=== PATIENT | male | born 1955 | race African-American/Black ===

== ENCOUNTER 2018-05-23 14:16 | Emergency (ER) | payer SELFPAY, OTHER ==
[2018-05-23] MEDS: IBUPROFEN 800 MG TABLET. PO (16:43)
== END 2018-05-23 16:44 | disposition home or self-care (01) ==
LOC: ER 16:44
DX: M25.551 Pain in right hip (principal); M25.552 Pain in left hip
CPT/HCPCS: 73521; 99284

== ENCOUNTER 2018-07-18 20:21 | Inpatient (IN) | payer OTHER ==
[~2018-07-18] VITALS: Ht 177.8 cm; Wt 73.0 kg
[2018-07-18 20:56] LABS: BASO # 0.1 x10^3/uL (0.0-0.2); BASO % 1 % (0-3); EOS # 0.2 x10^3/uL (0.0-0.7); EOS % 3 % (0-3); HEMATOCRIT 40.5 % (39.0-53.0); HEMOGLOBIN 14.3 g/dL (13.0-17.5); LYMPH # 1.8 x10^3/uL (1.0-4.8); LYMPH % 29 % (24-48); MEAN CORPUSCULAR HEMOGLOBIN 35 pg (25-35); MEAN CORPUSCULAR HGB CONC 35 g/dL (31-37); MEAN CORPUSCULAR VOLUME 98 fL (79-100); MONO # 0.7 x10^3/uL (0.0-1.1); MONO % 11 % (0-9); NEUT # 3.6 x10^3uL (1.8-7.7); NEUT % 57 % (31-73); PLATELET COUNT 161 x10^3/uL (140-400); RED BLOOD COUNT 4.13 x10^6/uL (4.30-5.70); RED CELL DISTRIBUTION WIDTH 14.7 % (11.5-14.5); WHITE BLOOD COUNT 6.4 x10^3/uL (4.0-11.0)
[2018-07-18 21:09] LABS: CALCIUM 9.2 mg/dL (8.5-10.1); CREATININE 0.7 mg/dL (0.7-1.3); GFR 137.8
[2018-07-18 21:16] LABS: TOTAL BILIRUBIN 0.4 mg/dL (0.2-1.0)
--- NOTE | 2018-07-18 21:33 | RAD ---
EXAM: CT Head without IV contrast CLINICAL HISTORY: syncope COMPARISON: 03/30/2016 TECHNIQUE: Routine CT of the head without contrast. Soft tissues and bone windows were reviewed. PQRS compliance statement - One or more of the following individualized dose reduction techniques were utilized for this study: 1. Automated exposure control 2. Adjustment of the mA and/or kV according to patient size 3. Use of iterative reconstruction technique FINDINGS: There is no evidence of hemorrhage, mass or extra-axial fluid collection. Daniel-white differentiation is maintained with no evidence of edema. There is no mass effect or shift of the intracranial structures. The ventricles, basilar cisterns and cortical sulci are normal in size and configuration for the patients stated age. The cerebellum and brainstem are unremarkable. The calvarium demonstrates no evidence of fracture or focal lesion. There is normal aeration of the visualized paranasal sinuses and mastoid air cells. The visualized portions of the orbits are normal. IMPRESSION: No evidence for acute intracranial process. Electronically signed by: Mauri Pope MD (07/18/2018 9:30 PM) [facility]
[2018-07-18 22:21] LABS: BILIRUBIN,URINE NEGATIVE (NEG); CLARITY,URINE CLEAR; COLOR,URINE YELLOW; NITRITE,URINE NEGATIVE (NEG); PROTEIN,URINE NEGATIVE (NEG-TRACE); UROBILINOGEN,URINE 0.2 mg/dL (0.2 mg/dL)
[2018-07-18 22:28] LABS: BACTERIA,URINE 0 /HPF (0-FEW); RBC,URINE 0 /HPF (0-2); WBC,URINE 0 /HPF (0-4)
[2018-07-18] MEDS ORDERED: ASPIRIN 325 MG TABLET PO ONE (22:45)
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
[2018-07-19] VITALS (10 sets, daily range): BP systolic 139–159; BP diastolic 80–102
[2018-07-19] MEDS ORDERED: LABETALOL 20 MG/4 ML DISP.SYRIN. IVP PRN (00:30)
[2018-07-19] MEDS ORDERED: amLODIPine BESYLATE 2.5 MG TABLET PO ONE (00:30)
[2018-07-19] MEDS ORDERED: MULTIVIT INFUSN,ADULT 4,VIT K 10 ML, THIAMINE 100 MG, FOLIC ACID 1 MG in IV NORMAL SALI... IV ONE (00:45)
[2018-07-19] MEDS: ENOXAPARIN 40 MG/0.4 ML SYRINGE. SQ SCH (09:23)
--- NOTE | 2018-07-19 09:55 | EKG ---
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
[2018-07-19] MEDS ORDERED: ONDANSETRON PF 4 MG/2 ML VIAL. IV PRN (10:30)
[2018-07-19] MEDS ORDERED: ACETAMINOPHEN 325 MG TABLET. PO PRN (10:30)
[2018-07-19] MEDS ORDERED: DOCUSATE SODIUM 100 MG CAPSULE. PO PRN (10:30)
[2018-07-19] MEDS ORDERED: MORPHINE SULFATE 2 MG/ML VIAL. IV PRN (10:30)
[2018-07-19 10:45] LABS: MAGNESIUM 1.8 mg/dL (1.8-2.4); PHOSPHORUS 3.7 mg/dL (2.6-4.7)
[2018-07-19 12:11] LABS: BARBITURATES NEG (NEG); BENZODIAZEPINES NEG (NEG); CANNABINOIDS NEG (NEG); COCAINE NEG (NEG); METHADONE NEG (NEG); OPIATES NEG (NEG); PHENCYCLIDINE NEG (NEG)
[2018-07-19] MEDS: ASPIRIN ENTERIC COATED 81 MG TABLET.DR. PO SCH (12:12)
[2018-07-19 12:14] LABS: AMPHETAMINE/METHAMPHETAMINE NEG (NEG)
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
--- NOTE | 2018-07-19 15:13 | PDOC2 ---
CARDIOLOGY CONSULT NOTE CHEIF COMPLAINT: Evaluate for syncope and elevated troponin HPI: 63-year-old alcoholic male presenting to the hospital in the setting of a syncopal event. He apparently choked on some food and subsequent to that was down for about 10 seconds. Initial evaluation the ER revealed nonspecific EKG changes with minimally elevated troponin. He did not have any chest pain. Previous his presentation he did not complain of any specific cardiac limitation such as chest pain, orthopnea, PND or lower extremity edema. No syncope or palpitations. Today reports that he is overall doing well. No acute issues. Troponin has peaked to 0.14. PMHX: No significant history. SOCHX: Alcohol and tobacco abuse is noted. FAMHX: Noncontributory CURRENT MEDS: Current Medications Medications (Trade) Dose Ordered Sig/Luis Eduardo Start Time Stop Time Status Last Admin Dose Admin Acetaminophen (Tylenol) 650 mg PRN Q6HRS PRN 07/19/18 10:30 Amlodipine Besylate (Norvasc) 2.5 mg 1X ONCE 07/19/18 00:30 07/19/18 00:31 DC 07/19/18 01:31 2.5 MG Aspirin (Jennifer Aspirin) 325 mg 1X ONCE 07/18/18 22:45 07/18/18 22:46 DC 07/18/18 23:30 325 MG Aspirin (Ecotrin) 81 mg [id number] 07/19/18 12:30 07/19/18 12:12 81 MG Docusate Sodium (Colace) 100 mg PRN DAILY PRN 07/19/18 10:30 Enoxaparin Sodium (Lovenox 40mg Syringe) 40 mg Q24H 07/19/18 09:00 07/19/18 09:23 40 MG Enoxaparin Sodium (Lovenox Per Pharmacy Prophylaxis Dosing) 1 each PRN DAILY PRN 07/19/18 00:30 Labetalol HCl (Normodyne Iv Push) 20 mg PRN Q2HR PRN 07/19/18 00:30 Lorazepam (Ativan) 4 mg PRN Q1HR PRN 07/19/18 00:30 Morphine Sulfate (Morphine Sulfate) 2 mg PRN Q2HR PRN 07/19/18 10:30 Multivitamins 10 ml/Thiamine HCl 100 mg/Folic Acid 1 mg/Sodium Chloride 1,011.2 ml @ 1,000.088 mls/hr 1X ONCE 07/19/18 00:45 07/19/18 01:45 DC 07/19/18 01:31 1,000.088 MLS/HR Ondansetron HCl (Zofran) 4 mg PRN Q6HRS PRN 07/19/18 10:30 Tramadol HCl (Ultram) 50 mg PRN Q6HRS PRN 07/19/18 10:30 ALLERGIES: Allergies Coded Allergies Type Severity Reaction Last Updated Verified No Known Drug Allergies 03/30/16 No ROS: Negative for 10 out of 14 systems reviewed also otherwise mentioned above in history of present illness PHYSICAL EXAM: Vital Signs: Vital Signs Date Time Temp Pulse Resp B/P (MAP) Pulse Ox O2 Delivery O2 Flow Rate FiO2 07/19/18 10:45 97.7 75 18 159/82 (107) 99 Room Air 97.7 I & O Intake and Output 07/19/18 07:00 # Voids 3 Physical Exam: GEN.: No apparent distress. Alert and oriented. HEENT: Head is normocephalic, atraumatic NECK: Supple. LUNGS: Clear to auscultation. HEART: RRR, S1, S2 present. Peripheral pulses intact ABDOMEN: Soft, nontender. Positive bowel sounds. EXTREMITIES: Without any cyanosis. NEUROLOGIC: Normal speech, normal tone PSYCHIATRIC: Normal affect, normal mood. SKIN: No ulcerations DIAGNOSTIC TESTING: EKG unremarkable. Cardiac enzymes minimally elevated. Mild hypertension noted. Lab Laboratory Tests Test 07/18/18 20:40 07/18/18 22:05 07/19/18 05:00 07/19/18 11:45 White Blood Count 6.4 x10^3/uL (4.0-11.0) Red Blood Count 4.13 x10^6/uL (4.30-5.70) L Hemoglobin 14.3 g/dL (13.0-17.5) Hematocrit 40.5 % (39.0-53.0) Mean Corpuscular Volume 98 fL (79-100) Mean Corpuscular Hemoglobin 35 pg (25-35) Mean Corpuscular Hemoglobin Concent 35 g/dL (31-37) Red Cell Distribution Width 14.7 % (11.5-14.5) H Platelet Count 161 x10^3/uL (140-400) Neutrophils (%) (Auto) 57 % (31-73) Lymphocytes (%) (Auto) 29 % (24-48) Monocytes (%) (Auto) 11 % (0-9) H Eosinophils (%) (Auto) 3 % (0-3) Basophils (%) (Auto) 1 % (0-3) Neutrophils # (Auto) 3.6 x10^3uL (1.8-7.7) Lymphocytes # (Auto) 1.8 x10^3/uL (1.0-4.8) Monocytes # (Auto) 0.7 x10^3/uL (0.0-1.1) Eosinophils # (Auto) 0.2 x10^3/uL (0.0-0.7) Basophils # (Auto) 0.1 x10^3/uL (0.0-0.2) Sodium Level 140 mmol/L (136-145) Potassium Level 4.0 mmol/L (3.5-5.1) Chloride Level 102 mmol/L (98-107) Carbon Dioxide Level 25 mmol/L (21-32) Anion Gap 13 (6-14) Blood Urea Nitrogen 4 mg/dL (8-26) L Creatinine 0.7 mg/dL (0.7-1.3) Estimated GFR (Cockcroft-Gault) 137.8 BUN/Creatinine Ratio 6 (6-20) Glucose Level 100 mg/dL (70-99) H Calcium Level 9.2 mg/dL (8.5-10.1) Total Bilirubin 0.4 mg/dL (0.2-1.0) Aspartate Amino Transf (AST/SGOT) 100 U/L (15-37) H Alkaline Phosphatase 58 U/L (46-116) Total Protein 8.0 g/dL (6.4-8.2) Albumin 4.0 g/dL (3.4-5.0) Albumin/Globulin Ratio 1.0 (1.0-1.7) Ethyl Alcohol Level 211 mg/dL (0-10) H Urine Collection Type Unknown Urine Color Yellow Urine Clarity Clear Urine pH 5.0 Urine Specific [place] 1.010 Urine Protein Negative mg/dL (NEG-TRACE) Urine Glucose (UA) Negative mg/dL (NEG) Urine Ketones (Stick) Negative mg/dL (NEG) Urine Blood Trace (NEG) Urine Nitrite Negative (NEG) Urine Bilirubin Negative (NEG) Urine Urobilinogen Dipstick 0.2 mg/dL (0.2 mg/dL) Urine Leukocyte Esterase Negative (NEG) Urine RBC 0 /HPF (0-2) Urine WBC 0 /HPF (0-4) Urine Bacteria 0 /HPF (0-FEW) Urine Mucus Slight /LPF Phosphorus Level 3.7 mg/dL (2.6-4.7) Thyroid Stimulating Hormone (TSH) 0.766 uIU/mL (0.358-3.74) Urine Opiates Screen Neg (NEG) Urine Methadone Screen Neg (NEG) Urine Barbiturates Neg (NEG) Urine Phencyclidine Screen Neg (NEG) Urine Amphetamine/Methamphetamine Neg (NEG) Urine Benzodiazepines Screen Neg (NEG) Urine Cocaine Screen Neg (NEG) Urine Cannabinoids Screen Neg (NEG) Urine Ethyl Alcohol Neg (NEG) ASSESSMENT: 1. Elevated troponin the setting of alcohol and tobacco abuse. 2. Syncope in setting of likely vasovagal event after vomiting. 3. Probable hypertension. PLAN: 1. In light of the patient's age, risk factors including tobacco abuse and probable hypertension along with elevated troponin it would be appropriate to rule out any significant ischemic heart disease and therefore we will plan for a myocardial perfusion study tomorrow. 2. Continue aspirin and discussed smoking and alcohol cessation with the patient. 3. Continue present meds, add statin. SHAKIR TANG MD Jul 19, 2018 15:13
--- NOTE | 2018-07-19 16:23 | RAD ---
Bilateral Duplex Carotid Ultrasound: History: Syncope. Dizziness. Technique: Grayscale, color Doppler, and spectral Doppler imaging was performed of the arteries of the neck. Findings: Peak systolic velocity in right common carotid artery is 97 cm/sec. Peak systolic velocity in the right internal carotid artery is 76 cm/sec. Maximum end-diastolic velocity in the right internal carotid artery is 26 cm/sec. Right ICA/CCA ratio is 0.78. Peak systolic velocity in the right external carotid artery is 90 cm/sec. Peak systolic velocity in left common carotid artery is 83 cm/sec. Peak systolic velocity in the left internal carotid artery is 90 cm/sec. Maximum end-diastolic velocity in the left internal carotid artery is 34 cm/sec. Left ICA/CCA ratio is 1.0. Peak systolic velocity in the left external carotid artery is 55 cm/sec. Both vertebral arteries demonstrate antegrade flow. Grayscale imaging demonstrates mild intimal thickening of the common carotid artery. Relatively mild calcified and noncalcified atherosclerotic plaquing can be seen involving both carotid bulbs. Impression: No hemodynamically significant internal carotid artery stenosis. Note: Stenosis calculations for carotid ultrasound studies are derived from validated velocity criteria which are known to correlate with the NASCET methodology. Electronically signed by: Jericho Goncalves MD (07/19/2018 4:19 PM) [facility] [place]
--- NOTE | 2018-07-19 16:54 | EKG ---
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
[2018-07-19] MEDS: ATORVASTATIN CALCIUM 40 MG TABLET. PO SCH (21:21)
[2018-07-20] VITALS (17 sets, daily range): BP systolic 117–147; BP diastolic 69–105
[2018-07-20 07:44] LABS: BASO % 0 % (0-3); EOS # 0.1 x10^3/uL (0.0-0.7); EOS % 3 % (0-3); HEMATOCRIT 40.4 % (39.0-53.0); HEMOGLOBIN 13.9 g/dL (13.0-17.5); LYMPH # 1.2 x10^3/uL (1.0-4.8); LYMPH % 23 % (24-48); MEAN CORPUSCULAR HEMOGLOBIN 34 pg (25-35); MEAN CORPUSCULAR HGB CONC 35 g/dL (31-37); MEAN CORPUSCULAR VOLUME 98 fL (79-100); MONO # 0.6 x10^3/uL (0.0-1.1); MONO % 11 % (0-9); NEUT # 3.3 x10^3uL (1.8-7.7); NEUT % 63 % (31-73); PLATELET COUNT 134 x10^3/uL (140-400); RED BLOOD COUNT 4.13 x10^6/uL (4.30-5.70); RED CELL DISTRIBUTION WIDTH 13.9 % (11.5-14.5); WHITE BLOOD COUNT 5.2 x10^3/uL (4.0-11.0)
[2018-07-20] MEDS: ASPIRIN ENTERIC COATED 81 MG TABLET.DR. PO SCH (08:00)
[2018-07-20 08:09] LABS: CALCIUM 8.6 mg/dL (8.5-10.1); CREATININE 0.6 mg/dL (0.7-1.3); GFR 164.7; POTASSIUM 3.5 mmol/L (3.5-5.1)
[2018-07-20] MEDS: ENOXAPARIN 40 MG/0.4 ML SYRINGE. SQ SCH (09:00)
[2018-07-20 10:07] LABS: PROTHROMBIN TIME PATIENT 13.9 SEC (11.7-14.0)
--- NOTE | 2018-07-20 10:58 | EKG ---
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
[2018-07-20] MEDS ORDERED: ceFAZolin 2GM PREMIX 2 GM/50 ML BAG IV ONE (12:00)
[2018-07-20] MEDS ORDERED: BACITRACIN 50,000 UNIT in IV NORMAL SALINE 250ML 250 ML IRR ONE (12:15)
--- NOTE | 2018-07-20 12:55 | CARD ---
MR#: [id number] Date of Study: 07/20/2018 Ordering Physician: NICANOR HOPSON, Referring Physician: Latha RODRIGEZ: RAY Muñoz APPROVED REPORT EXAM: Two-dimensional and M-mode echocardiogram with Doppler and color Doppler. Other Information Quality : AverageHR: 63bpm INDICATION Syncope 2D DIMENSIONS Left Atrium(2D)3.6 (1.6-4.0cm)IVSd0.8 (0.7-1.1cm) Aortic Root(2D)3.2 (2.0-3.7cm)LVDd6.6 (3.9-5.9cm) LVOT Diameter2.7 (1.8-2.4cm)PWd1.0 (0.7-1.1cm) LVDs5.9 (2.5-4.0cm)FS (%) 11.9 % SV56.9 mlLVEF(%)25.0 (>50%) Aortic Valve AoV Peak Isai.117.9cm/sAoV VTI18.9cm AO Peak GR.5.6mmHgLVOT Peak Isai.46.0cm/s LVOT VTI 7.89cmAO Mean GR.3mmHg CHUY (VMAX)1.67fn2XES (VTI)2.33cm2 Mitral Valve MV E Tylklceb26.1cm/sMV E Peak Gr.21mmHg MV DECEL [id number] A Kimseuyn32.1cm/s MV NCL79ozR/A Ratio0.7 MVA (PHT)2.26cm2 Pulmonary Valve PV Peak Hqbmtvwy57.2cm/sPV Peak Grad.1mmHg Pulmonary Vein S1 Mhvixudl38.7cm/sD2 Mjucugvo08.4cm/s LEFT VENTRICLE The Left Ventricle is mildly dilated. There is normal left ventricular wall thickness. The ejection f raction is severely impaired. The Ejection Fraction is estimated at 25%. There is severe global hypok inesis of the left ventricle. Transmitral Doppler flow pattern is abnormal. RIGHT VENTRICLE The right ventricle is normal size. The right ventricular systolic function is normal. ATRIA The left atrium size is normal. The right atrium size is normal. The interatrial septum is intact wit h no evidence for an atrial septal defect or patent foramen ovale as noted on 2-D or Doppler imaging. AORTIC VALVE The aortic valve is mildly thickened but opens well. Doppler and Color Flow revealed no significant a ortic regurgitation. There is no significant aortic valvular stenosis. There is no aortic valvular ve getation. MITRAL VALVE The mitral valve is mildly thickened but opens well. There is no evidence of mitral valve prolapse. T here is no mitral valve stenosis. Doppler and Color-flow revealed mild mitral regurgitation. TRICUSPID VALVE The tricuspid valve is normal in structure and function. Doppler and Color Flow revealed mild tricusp id regurgitation. There is no tricuspid valve prolapse or vegetation. There is no tricuspid valve nia nosis. PULMONIC VALVE The pulmonic valve is not well visualized. Doppler and Color Flow revealed no pulmonic valvular regur gitation. There is no pulmonic valvular stenosis. GREAT VESSELS The aortic root is normal in size. The IVC is normal in size and collapses >50% with inspiration. PERICARDIAL EFFUSION There is no pleural effusion. There is no evidence of significant pericardial effusion. Critical Notification Critical Value: No <Conclusion> The Left Ventricle is mildly dilated. The ejection fraction is severely impaired. The Ejection Fraction is estimated at 25%. There is severe global hypokinesis of the left ventricle. There is no significant aortic valvular stenosis. Doppler and Color Flow revealed no significant aortic regurgitation. Doppler and Color-flow revealed mild mitral regurgitation. Doppler and Color Flow revealed mild tricuspid regurgitation. Signed by : Florain Leigh MD Electronically Approved : 07/20/2018 12:55:00
[2018-07-20] MEDS ORDERED: fentaNYL PF VIAL 250 MCG/5 ML VIAL ONE (14:00)
[2018-07-20] MEDS ORDERED: LIDOCAINE 2%/EPI 1:100,000 20 ML VIAL. ONE (14:00)
[2018-07-20] MEDS ORDERED: MIDAZOLAM HCL/PF 5 MG/5 ML VIAL. ONE (14:00)
[2018-07-20] MEDS ORDERED: LIDOCAINE 2%/EPI 1:100,000 20 ML VIAL. IJ ONE (14:30)
[2018-07-20] MEDS ORDERED: fentaNYL PF VIAL 250 MCG/5 ML VIAL IV ONE (14:30)
[2018-07-20] MEDS ORDERED: MIDAZOLAM HCL/PF 5 MG/5 ML VIAL. IV ONE (14:30)
--- NOTE | 2018-07-20 16:12 | RAD ---
Portable chest, 07/20/2018: HISTORY: Post pacemaker insertion A left-sided transvenous pacemaker is in place with one lead extending into the right ventricle while the tip of the other lead is projected over the superior aspect of the right atrium. The heart size and pulmonary vascularity are normal. No pulmonary infiltrate is seen. There is no evidence of pleural fluid or pneumothorax. IMPRESSION: No acute cardiopulmonary abnormality is detected. Electronically signed by: Adrian Blackwell MD (07/20/2018 4:09 PM) [facility]
--- NOTE | 2018-07-20 16:49 | CARD ---
MR#: [id number] Date of Study: 07/20/2018 Ordering Physician: MARIANNA MONAHAN, Referring Physician: Ila OSBORNE Tech: RT Junaid (R) APPROVED REPORT Technologist: RT Junaid (R) Nurse: Rosio Joshi R.N. Procedure(s) performed: Moderate Sedation time: 84 minutes Dual chamber pacemaker. HISTORY The patient is a 63 year-old male with a history of : hypertension, dyslipidemia, alcohol abuse. INDICATION The indication(s) include : 11 second pause. . PROCEDURE NARRATIVE 30 mL of 2% lidocaine was infiltrated into the skin and subcutaneous tissues for local anesthesia. A n incision was made over the left infraclavicular fossa and using blunt dissection and cautery a pock et was created. Venous access was obtained in the left subclavian vein 6 Anguillan sheaths were inserte d. Subsequently, a Biotronik bipolar active fixation right ventricular lead model Solia S 53, SN [id number] was advanced under fluoroscopic guidance and the tip was positioned in the right ventricular apex. Following this, a Biotronik bipolar active fixation right atrial lead model Solia S 45, SN [id number] was placed in the right atrial appendage under fluoroscopy guidance. The leads were secured into callie ce and were attached to a Biotronik dual-chamber permanent pacemaker generator model Eluna 8 DR-T Pro MRI, SN [id number]. This was placed in the pocket that was subsequently closed in 3 layers. Hemostas is was secured. At the end of procedure, the right ventricular lead showed sensing amplitude of 10.2 mV, impedance of 698 ohms and a threshold of 0.4volts at 0.4ms. The right atrial lead showed a sensing amplitude of 2.5 millivolts, impedance of 514 ohms and a threshold of 0.7 volts at 0.4ms. Patient tolerated the pr ocedure well. There were no immediate complications. Final Settings: DDD/CLS 60-130 Conclusion 1. Successful insertion of a Biotronik Dual chamber pacemaker for SSS (11 second pause) and Syncope. Signed by : Lasha Andrews, Electronically Approved : 07/20/2018 16:48:46
--- NOTE | 2018-07-20 17:18 | PDOC ---
Provider Note Provider Note Patient underwent pacemaker today for SSS with 11 second pause and presentation for syncope. Patient situation discussed with the patient and the family. He has severe LV dysfunction likely in the setting of significant alcohol abuse. He's not appropriate medical therapy for heart failure. Given his minimally elevated troponin we will plan for a cardiac catheterization tomorrow to rule out any significant obstructive disease. Subsequent to this if he has no significant disease we will start him on a heart failure regimen and in 3-6 months could reconsider defibrillator implantation/upgrade as indicated if his LV function does not improve. Discussed with him dietary restrictions and alcohol cessation extensively. Risks and benefits of plan discussed with the patient and family and they're in agreement. SHAKIR TANG MD Jul 20, 2018 17:18
[2018-07-20] MEDS: traMADol 50 MG TABLET PO PRN (18:21)
[2018-07-20] MEDS: ATORVASTATIN CALCIUM 40 MG TABLET. PO SCH (22:59)
[2018-07-21] MEDS: traMADol 50 MG TABLET PO PRN ×3 (00:32→20:50)
[2018-07-21 03:30] VITALS: BP 152/97
[2018-07-21] MEDS ORDERED: ceFAZolin SODIUM 1 GM in IV DEXTROSE 5% 50 ML IV ONE (06:00)
[2018-07-21 07:00] VITALS: BP 150/106
[2018-07-21] MEDS: ENOXAPARIN 40 MG/0.4 ML SYRINGE. SQ SCH (07:11)
--- NOTE | 2018-07-21 08:27 | RAD ---
Portable chest, 07/21/2018: HISTORY: Check pacemaker placement Comparison is made to yesterday's study. A left-sided transvenous pacemaker remains in place with 2 leads extending into the right heart. The left ventricle is mildly prominent. The pulmonary vascularity is normal. No pulmonary infiltrate is seen. There is no evidence of pleural fluid. IMPRESSION: No acute cardiopulmonary abnormality is detected. Electronically signed by: Adrian Blackwell MD (07/21/2018 8:24 AM) [facility]
[2018-07-21] MEDS: ASPIRIN ENTERIC COATED 81 MG TABLET.DR. PO SCH (09:50)
[2018-07-21 11:31] VITALS: BP 122/77
[2018-07-21 15:00] VITALS: BP 140/90
--- NOTE | 2018-07-21 17:40 | PDOC ---
PROGRESS NOTES Subjective Same left chest wall pain from PPM placement, no anginal pain but not exerting. Wearing left shoulder harness. 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, postponed to tomorrow due to prior patient's complications causing prolonged procedure Objective Afebrile General: NAD Heart: RRR Lungs: diminished Abd: soft, non tender Ext: no edema Vital Signs Vital Signs Date Time Temp Pulse Resp B/P (MAP) Pulse Ox O2 Delivery O2 Flow Rate FiO2 07/21/18 15:00 98.3 75 20 140/90 (107) 99 Room Air 98.3 07/21/18 10:56 2.0 I & O Intake and Output 07/21/18 07:00 Intake Total 500 ml Balance 500 ml Intake Oral 500 ml # Voids 5 Assessment and Plan syncope - 11 sec pause, has SSS and is post op day #1 for PPM abnormal troponin with chest pain - awaiting left heart cath 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
[2018-07-21 19:44] VITALS: BP 153/94
[2018-07-21] MEDS: ATORVASTATIN CALCIUM 40 MG TABLET. PO SCH (20:44)
[2018-07-21 22:12] VITALS: BP 127/87
[2018-07-22 03:48] VITALS: BP 146/90
[2018-07-22] MEDS: traMADol 50 MG TABLET PO PRN (06:48)
[2018-07-22 07:00] VITALS: BP 121/56
[2018-07-22] MEDS ORDERED: LIDOCAINE 1% PF 30 ML VIAL. ONE (08:28)
[2018-07-22] MEDS: ENOXAPARIN 40 MG/0.4 ML SYRINGE. SQ SCH (09:00)
[2018-07-22] MEDS: ASPIRIN ENTERIC COATED 81 MG TABLET.DR. PO SCH (09:27)
[2018-07-22] MEDS ORDERED: PHENOL ORAL SPRAY 177ML BOTTLE. PO PRN (10:30)
[2018-07-22] MEDS ORDERED: BENZOCAINE/MENTHOL LOZENGE. PO PRN (10:30)
[2018-07-22] MEDS ORDERED: MIDAZOLAM HCL/PF 2 MG/2 ML VIAL. ONE (11:19)
[2018-07-22] MEDS ORDERED: fentaNYL PF VIAL 100 MCG/2 ML VIAL ONE (11:19)
[2018-07-22] MEDS ORDERED: MIDAZOLAM HCL/PF 2 MG/2 ML VIAL. IV ONE (11:30)
[2018-07-22] MEDS ORDERED: fentaNYL PF VIAL 100 MCG/2 ML VIAL IV ONE (11:30)
[2018-07-22] MEDS ORDERED: IOHEXOL 300 MG/ML 100ML VIAL. IART ONE (11:30)
[2018-07-22] MEDS ORDERED: LIDOCAINE 1% PF 30 ML VIAL. INJ ONE (11:30)
--- NOTE | 2018-07-22 11:37 | PDOC ---
MODERATE SEDATION ASSESSMENT RISKS/ALTERNATIVES Risks/Alternatives Risks and alternatives of this type of sedation and procedure discussed with: RISK/ALTERNATIVES: Patient H & P ON CHART H & P H & P on chart and reviewed for co-morbid conditions and appropriate labs. H&P ON CHART: Yes STATUS PREG STATUS ASSESSED: N/A MEDS/ALLERGIES REVIEWED Meds/Allergies Reviewed Medications and Allergies including time and route of recently administered narcotics and sedatives. MEDS/ALLERGIES REVIEWED: Yes ASA RATING ASA RATING: II AIRWAY ASSESSMENT Airway Assessment Airway patency, oral function limitations, presence of caps, crowns, dentures, partials, and ability to extend neck assessed. AIRWAY ASSESSMENT: Yes MALLAMPATI SCORE MALLAMPATI SCORE: II PRE-SEDATION ASSESSMENT PRE-SEDATION ASSESSMENT: Yes DHIRAJ WYATT MD Jul 22, 2018 11:37
[2018-07-22] MEDS ORDERED: CONTRAST GIVEN. MC PRN (11:45)
[2018-07-22] MEDS ORDERED: BIVALIRUDIN 250 MG VIAL. IV ONE ×2 (11:55→12:15)
[2018-07-22] MEDS ORDERED: IOHEXOL 300 MG/ML 100ML VIAL. ONE (11:55)
[2018-07-22 12:16] VITALS: BP 141/104
[2018-07-22] MEDS ORDERED: IV NORMAL SALINE 1000ML BAG 1,000 ML IV SCH (12:19)
[2018-07-22] MEDS ORDERED: NITROGLYCERIN SUBLINGUAL 0.4 MG BOTTLE OF 25. SL PRN (12:30)
[2018-07-22] MEDS ORDERED: 0.9 % SODIUM CHLORIDE 10 ML DISP.SYRIN. IV PRN (12:30)
--- NOTE | 2018-07-22 14:42 | CARD ---
MR#: [id number] Date of Study: 07/22/2018 Ordering Physician: SHAKIR TANG, Referring Physician: Latha RODRIGEZ: RT Junaid (R) APPROVED REPORT Procedures Selective coronary angiogram. The patient is a 63-year-old male with a severe global cardiomyopathy. Catheterization was recommende d to evaluate for possible significant underlying coronary artery disease. Risks and benefits were di scussed. The patient agreed to proceed. After informed consent was obtained the patient was brought to the heart catheterization lab. The are a of the right femoral artery was prepared the usual manner with Betadine, sterile draping and local anesthetic. An 18-gauge needle was used to enter the right femoral artery, a wire placed and a 6 Fren ch sheath placed over the wire. A 6 Turkish JL4 diagnostic catheter was advanced to the ascending aort a. It was used to engage the left coronary system and sequential injections in various views were obt ained. A 6 Turkish Taj diagnostic right catheter was then advanced to the ascending aorta. It was used to engage the right coronary artery and an injection was performed. Following this a 3.5 extra support Left guide was advanced to ascending aorta and used to engage the left coronary system. Furt her injections in various views were obtained. This catheter was then removed after review of Images. Injection of the sheath showed normal placement. The sheath was removed and sealed with an Angio-Sea l product. The patient was then moved to the holding area. Findings. Hemodynamics. Ao. 118/84. Coronaries. Left main. The left main was a normal vessel. It had no lesions. Left anterior descending. The LAD was a moderate size vessel with normal distribution. It had a proxi mal 20% lesion and a mid 30% lesion. There was also a 25% lesion of the first diagonal branch. Left circumflex. The left circumflex is a dominant vessel. It a 40% obtuse marginal 2 lesion. Distall y the left circumflex was a small vessel with a lesion in the proximal portion of the small distal ve ssel. Following review of the images it was decided to continue on medical treatment for the small v essel disease. Right coronary artery. The right coronary was a nondominant vessel with a mid 35% lesion. <Conclusion> Moderate disease in the left anterior descending and right coronary arteries. Distal small vessel disease in the left circumflex vessel. Continue medical treatment. Signed by : Florian Leigh MD Electronically Approved : 07/22/2018 14:41:06
[2018-07-22 15:00] VITALS: BP 134/92
[2018-07-22] MEDS ORDERED: ASPI81TA50 PO (16:19)
[2018-07-22] MEDS ORDERED: SIMV10TA3 PO (16:19)
[2018-07-22] MEDS ORDERED: METO25TA4 PO (16:19)
--- NOTE | 2018-07-22 16:33 | PDOC3 ---
Discharge Summary [facility] Date of Admission: Jul 19, 2018 Discharge Date: Jul 22, 2018 Admitting Diagnosis syncope Final Diagnosis syncope from sick sinus syndrome, alcoholic cardiomyopathy, alcoholism, moderate coronary disease with chest pain CONSULTS Juliana Procedures placement of permanent pacemaker, left heart catheterization Brief Hospital Course Mr. Jc is a 63 old who presented with syncope and chest pain and found to have an 11 second sinus pause for which he received a permanent pacemaker. He was found to have a cardiomyopathy on echo with an EF of 20% presumed to be from alcoholism as on left heart cath he only had moderate ASCAD. He had a mildly elevated troponin. He will be managed medically for that with low dose beta ann, low dose aspirin and low dose statin. He is encouraged to not drink. Disposition home CONDITION AT DISCHARGE: Improved, Stable Diet cardiac, avoid alcohol Follow Up 1-2 weeks Patient Instructions new Rxs written for simvastatin 10 mg #90, 3 ref, ASA 81 mg #90, 3 ref, metoprolol tartrate 25 mg 1 bid #180, 3 ref and he will continue Vit D and eye drops he has at home. He will wear sling left arm x 2 weeks, he will avoid any exertional activity the next 2 weeks Tiarra OSBORNE MD Jul 22, 2018 16:33
== END 2018-07-22 17:50 | disposition home or self-care (01) | DRG 242 ==
LOC: ER 20:21 → 5 SOUTH 22:47 → 2 SOUTH 07-20 14:27
PROVIDERS: ADMIT Family Medicine; ATTEND Family Medicine
PROC: 0JH606Z Insertion of Pacemaker, Dual Chamber into Chest Subcutaneous Tissue and Fascia, Open Approach (ICD-10-PCS; principal; 2018-07-20)
PROC: 02H63JZ Insertion of Pacemaker Lead into Right Atrium, Percutaneous Approach (ICD-10-PCS; 2018-07-20)
PROC: 02HK3JZ Insertion of Pacemaker Lead into Right Ventricle, Percutaneous Approach (ICD-10-PCS; 2018-07-20)
PROC: 4A023N7 Measurement of Cardiac Sampling and Pressure, Left Heart, Percutaneous Approach (ICD-10-PCS; 2018-07-20)
PROC: B2111ZZ Fluoroscopy of Multiple Coronary Arteries using Low Osmolar Contrast (ICD-10-PCS; 2018-07-20)
DX: I49.5 Sick sinus syndrome (principal); I50.43 Acute on chronic combined systolic (congestive) and diastolic (congestive) heart failure; J44.9 Chronic obstructive pulmonary disease, unspecified; I11.0 Hypertensive heart disease with heart failure; I25.10 Atherosclerotic heart disease of native coronary artery without angina pectoris; E78.00 Pure hypercholesterolemia, unspecified; E78.5 Hyperlipidemia, unspecified; F10.20 Alcohol dependence, uncomplicated; I42.6 Alcoholic cardiomyopathy; E86.0 Dehydration; H40.9 Unspecified glaucoma; F17.210 Nicotine dependence, cigarettes, uncomplicated; Z79.82 Long term (current) use of aspirin; Z79.899 Other long term (current) drug therapy; Z71.6 Tobacco abuse counseling; Z71.41 Alcohol abuse counseling and surveillance of alcoholic
CPT/HCPCS: 33208; 36415; 70450; 71045; 71046; 80048; 80053; 80061; 80307; 81001; 83735; 84100; 84443; 84484; 85025; 85610; 85730; 93005; 93306; 93454; 93458; 93880; 99152; 99153; C1713; C1725; C1769; C1771; C1773; C1785; C1887; C1892; C1898; G0269; G0480; J0583; J0690; J1644; J1650; J2250; J3010; J3490; J7030; J7050; Q9967; 99285-25; G0479

== ENCOUNTER 2020-05-11 18:51 | Inpatient (IN) | payer MEDICARE, MEDICAID ==
[~2020-05-11] VITALS: Ht 177.8 cm; Wt 73.9 kg
[~2020-05-11 18:51] MED LIST: ASPI81TA50 PO; METO25TA4 PO; SIMV10TA15 PO
[2020-05-11 19:15] LABS: BASO % 1 % (0-3); EOS % 1 % (0-3); HEMATOCRIT 41.3 % (39.0-53.0); HEMOGLOBIN 14.1 g/dL (13.0-17.5); LYMPH # 1.8 x10^3/uL (1.0-4.8); LYMPH % 20 % (24-48); MEAN CORPUSCULAR HEMOGLOBIN 35 pg (25-35); MEAN CORPUSCULAR HGB CONC 34 g/dL (31-37); MEAN CORPUSCULAR VOLUME 102 fL (79-100); MONO # 0.4 x10^3/uL (0.0-1.1); MONO % 5 % (0-9); NEUT # 6.7 x10^3/uL (1.8-7.7); NEUT % 74 % (31-73); PLATELET COUNT 174 x10^3/uL (140-400); RED BLOOD COUNT 4.04 x10^6/uL (4.30-5.70); RED CELL DISTRIBUTION WIDTH 14.8 % (11.5-14.5)
[2020-05-11 19:24] LABS: PROTHROMBIN TIME PATIENT 13.4 SEC (11.7-14.0)
--- NOTE | 2020-05-11 19:49 | PHYS DOC ---
Past Medical History Past Medical History: Hypertension Past Surgical History: Pacemaker, Other Additional Past Surgical Histo: SHOULDER Smoking Status: Current Every Day Smoker Alcohol Use: Heavy Drug Use: None General Adult EDM: Chief Complaint: CHEST PAIN HPI: HPI: 65-year-old male past medical history with pacemaker secondary to tachyarrhythmia, hypertension and hyperlipidemia presents to the ED with complaints of chest pain that lasted for approximately 2 hours described as an "elephant sitting on my chest" with associated palpitations, lightheadedness, sore throat and shortness of breath, while watching tv. Normally follows at the [facility]. Denies any cocaine abuse. Mom from a heart attack in her 60s. ROS: Denies associated headache, blurry vision, lightheadedness, dizziness, syncope, hemoptysis, leg swelling, cough, sore throat, abdominal pain. Review of Systems: Review of Systems: Constitutional: Denies fever or chills. [] Eyes: Denies change in visual acuity. [] HENT: Denies nasal congestion or sore throat. [] Respiratory: Denies cough or shortness of breath. [] Cardiovascular: Denies chest pain or edema. [] GI: Denies abdominal pain, nausea, vomiting, bloody stools or diarrhea. [] : Denies dysuria. [] Musculoskeletal: Denies back pain or joint pain. [] Integument: Denies rash. [] Neurologic: Denies headache, focal weakness or sensory changes. [] Endocrine: Denies polyuria or polydipsia. [] Lymphatic: Denies swollen glands. [] Psychiatric: Denies depression or anxiety. [] Heart Score: HEART Score for Chest Pain: HEART Score for Chest Pain Response (Comments) Value History Moderately Suspicious 1 ECG Nonspecific Repolarizatio 1 Age > 65 2 Risk Factors >3 Risk Factors or Hx CAD 2 Troponin >1-<3x Normal Limit 1 Total 7 Risk Factors: Risk Factors: DM, Current or recent (<one month) smoker, HTN, HLP, family history of CAD, obesity. Risk Scores: Score 0 - 3: 2.5% MACE over next 6 weeks - Discharge Home Score 4 - 6: 20.3% MACE over next 6 weeks - Admit for Clinical Observation Score 7 - 10: 72.7% MACE over next 6 weeks - Early Invasive Strategies Allergies: Allergies: Allergies Coded Allergies Type Severity Reaction Last Updated Verified No Known Drug Allergies 03/30/16 No Physical Exam: PE: Constitutional: Well developed, well nourished, no acute distress, non-toxic appearance. [] HENT: Normocephalic, atraumatic, bilateral external ears normal, oropharynx moist, no oral exudates, nose normal. [] Eyes: PERRLA, EOMI, conjunctiva normal, no discharge. [] Neck: Normal range of motion, no tenderness, supple, no stridor. [] Cardiovascular:Heart rate regular rhythm, no murmur [] Lungs & Thorax: Bilateral breath sounds clear to auscultation [] Abdomen: Bowel sounds normal, soft, no tenderness, no masses, no pulsatile masses. [] Skin: Warm, dry, no erythema, no rash. [] Back: No tenderness, no CVA tenderness. [] Extremities: No tenderness, no cyanosis, no clubbing, ROM intact, no edema. [] Neurologic: Alert and oriented X 3, normal motor function, normal sensory function, no focal deficits noted. [] Psychologic: Affect normal, judgement normal, mood normal. [] Current Patient Data: Labs: Laboratory Tests Test 05/11/20 19:09 White Blood Count 9.0 x10^3/uL (4.0-11.0) Red Blood Count 4.04 x10^6/uL (4.30-5.70) L Hemoglobin 14.1 g/dL (13.0-17.5) Hematocrit 41.3 % (39.0-53.0) Mean Corpuscular Volume 102 fL (79-100) H Mean Corpuscular Hemoglobin 35 pg (25-35) Mean Corpuscular Hemoglobin Concent 34 g/dL (31-37) Red Cell Distribution Width 14.8 % (11.5-14.5) H Platelet Count 174 x10^3/uL (140-400) Neutrophils (%) (Auto) 74 % (31-73) H Lymphocytes (%) (Auto) 20 % (24-48) L Monocytes (%) (Auto) 5 % (0-9) Eosinophils (%) (Auto) 1 % (0-3) Basophils (%) (Auto) 1 % (0-3) Neutrophils # (Auto) 6.7 x10^3/uL (1.8-7.7) Lymphocytes # (Auto) 1.8 x10^3/uL (1.0-4.8) Monocytes # (Auto) 0.4 x10^3/uL (0.0-1.1) Eosinophils # (Auto) 0.0 x10^3/uL (0.0-0.7) Basophils # (Auto) 0.0 x10^3/uL (0.0-0.2) Prothrombin Time 13.4 SEC (11.7-14.0) Prothrombin Time INR 1.1 (0.8-1.1) Activated Partial Thromboplast Time 22 SEC (24-38) L Laboratory Tests 05/11/20 19:09 Vital Signs: Vital Signs Date Time Temp Pulse Resp B/P (MAP) Pulse Ox O2 Delivery O2 Flow Rate FiO2 05/11/20 18:56 98.3 107 18 127/71 (89) 98 Room Air 98.3 EKG: EKG: Sinus tachycardia at 101 bpm, no axis deviation, QRS 136, QTc 496, T wave inversion V1 and V3, no ST elevations or ST depressions, 1 PVC Q waves in inferior leads Radiology/Procedures: Radiology/Procedures: IMAGING REPORT Signed PATIENT: DMITRY SMALLS ACCOUNT: [id number] : 1955 LOCATION: ER AGE: 65 SEX: M EXAM STATUS: REG ER ORD. PHYSICIAN: OUMAR RATLIFF DO REASON: weakness PROCEDURE: PORTABLE CHEST 1V Exam: Chest one INDICATION: Weakness TECHNIQUE: Frontal view of the chest Comparisons: 07/21/2018 FINDINGS: Pacer with leads terminating the right atrium and ventricle. The cardiomediastinal silhouette and pulmonary vessels are within normal limits. The lung and pleural spaces are clear. IMPRESSION: No acute cardiopulmonary process. Electronically signed by: Taryn Neves MD (05/11/2020 8:15 PM) [id number] DICTATED and SIGNED BY: TARYN NEVES MD DATE: 05/11/202014 IMAGING REPORT Signed PATIENT: DMITRY SMALLS ACCOUNT: [id number] : 1955 LOCATION: ER AGE: 65 SEX: M EXAM STATUS: REG ER ORD. PHYSICIAN: OUMAR RATLIFF DO REASON: SOA, CHEST PAIN, ELEVATED D DIMER PROCEDURE: CT ANGIOGRAPHY CHEST CT angiography chest with contrast PQRS statement: CT scans at this facility use dose reduction including either automated exposure control, iterative reconstructions, and /or weight based radiation dosing via mA and kV modification when appropriate to reduce radiation dose to as low as reasonably achievable. TECHNIQUE: CT imaging of the chest with 3-D MIP reconstructions of the pulmonary arteries with 100 mL Omnipaque 350 intravenous contrast. HISTORY: Shortness of breath, chest pain, elevated d-dimer. FINDINGS: Marked hypodensity liver likely advanced steatosis. 1 cm left renal cyst density 0 units. Coronary calcified plaque. Heart size normal. Aorta and esophagus are unremarkable. No adenopathy in the chest. Cardiac pacemaker. No pulmonary artery emboli. Respiratory motion results in some misregistration of the basilar left lower lobe pulmonary arterial branches without a true embolus evident at these regions. There is diffuse bronchial wall thickening with luminal narrowing typical of bronchitis. Right apical 3 mm solid nodule image 22. No pulmonary opacities. No pleural effusions. Bones are unremarkable. IMPRESSION: 1. No pulmonary artery emboli. 2. Bronchial wall thickening narrowing the lumen of the bronchi consistent with bronchitis. 3. Hypodensity of the liver likely steatosis. 4. 3 mm right apical upper lobe pulmonary solid nodule. Per Fleischner guidelines if the patient has risk factors for malignancy optional CT follow-up in 12 months would be advised, otherwise no follow-up is necessary. Electronically signed by: Niki Le MD (05/11/2020 9:16 PM) [facility] DICTATED and SIGNED BY: NIKI LE MD DATE: 05/11/202115 Impression: Concern for high risk chest pain. Patient asymptomatic in the ED. Will admit for cardiac evaluation and further plan. Patient stable at time of admission. Course & Med Decision Making: Course & Med Decision Making Pertinent Labs and Imaging studies reviewed. (See chart for details) [] Dragon Disclaimer: Dragon Disclaimer: This electronic medical record was generated, in whole or in part, using a voice recognition dictation system. Departure Departure Impression: Primary Impression: Chest pain Additional Impressions: Elevated troponin Transaminitis Disposition: ADMITTED INPATIENT Admitting Physician: CHELSEA (Dr. Natarajan) Condition: STABLE Referrals: Tiarra OSBORNE MD (PCP) Justicifation of Admission Dx: Justifications for Admission: Justification of Admission Dx: Yes Angina: Symp at Rest OUMAR RATLIFF DO May 11, 2020 19:49
[2020-05-11 20:00] LABS: CALCIUM 8.4 mg/dL (8.5-10.1); CREATININE 0.9 mg/dL (0.7-1.3); GFR 102.5
[2020-05-11 20:06] LABS: ALBUMIN 3.8 g/dL (3.4-5.0); DIRECT BILIRUBIN 0.3 mg/dL (0.0-0.2); TOTAL BILIRUBIN 0.7 mg/dL (0.2-1.0); TOTAL PROTEIN 7.2 g/dL (6.4-8.2)
--- NOTE | 2020-05-11 20:18 | RAD ---
Exam: Chest one INDICATION: Weakness TECHNIQUE: Frontal view of the chest Comparisons: 07/21/2018 FINDINGS: Pacer with leads terminating the right atrium and ventricle. The cardiomediastinal silhouette and pulmonary vessels are within normal limits. The lung and pleural spaces are clear. IMPRESSION: No acute cardiopulmonary process. Electronically signed by: Taryn Joshi MD (05/11/2020 8:15 PM) [id number]
[2020-05-11] MEDS ORDERED: IOHEXOL 350 MG/ML 100 ML VIAL. ONE (20:38)
[2020-05-11] MEDS ORDERED: IOHEXOL 350 MG/ML 100 ML VIAL. IV ONE (21:00)
--- NOTE | 2020-05-11 21:19 | RAD ---
CT angiography chest with contrast PQRS statement: CT scans at this facility use dose reduction including either automated exposure control, iterative reconstructions, and /or weight based radiation dosing via mA and kV modification when appropriate to reduce radiation dose to as low as reasonably achievable. TECHNIQUE: CT imaging of the chest with 3-D MIP reconstructions of the pulmonary arteries with 100 mL Omnipaque 350 intravenous contrast. HISTORY: Shortness of breath, chest pain, elevated d-dimer. FINDINGS: Marked hypodensity liver likely advanced steatosis. 1 cm left renal cyst density 0 units. Coronary calcified plaque. Heart size normal. Aorta and esophagus are unremarkable. No adenopathy in the chest. Cardiac pacemaker. No pulmonary artery emboli. Respiratory motion results in some misregistration of the basilar left lower lobe pulmonary arterial branches without a true embolus evident at these regions. There is diffuse bronchial wall thickening with luminal narrowing typical of bronchitis. Right apical 3 mm solid nodule image 22. No pulmonary opacities. No pleural effusions. Bones are unremarkable. IMPRESSION: 1. No pulmonary artery emboli. 2. Bronchial wall thickening narrowing the lumen of the bronchi consistent with bronchitis. 3. Hypodensity of the liver likely steatosis. 4. 3 mm right apical upper lobe pulmonary solid nodule. Per Fleischner guidelines if the patient has risk factors for malignancy optional CT follow-up in 12 months would be advised, otherwise no follow-up is necessary. Electronically signed by: Arvind Le MD (05/11/2020 9:16 PM) [facility]
[2020-05-11 23:13] LABS: BILIRUBIN,URINE NEGATIVE (NEG); CLARITY,URINE CLEAR; COLOR,URINE YELLOW; NITRITE,URINE NEGATIVE (NEG); PROTEIN,URINE NEGATIVE (NEG-TRACE); UROBILINOGEN,URINE 0.2 mg/dL (0.2 mg/dL)
[2020-05-11 23:19] LABS: BACTERIA,URINE 0 /HPF (0-FEW); HYALINE CASTS, URINE FEW /HPF; RBC,URINE 0 /HPF (0-2); WBC,URINE 0 /HPF (0-4)
[2020-05-12] VITALS (7 sets, daily range): BP systolic 12–165; BP diastolic 73–88
[2020-05-12] MEDS ORDERED: ONDANSETRON PF 4 MG/2 ML VIAL. IV PRN (00:15)
[2020-05-12] MEDS ORDERED: MORPHINE SULFATE 2 MG/ML VIAL. IV PRN (00:15)
--- NOTE | 2020-05-12 02:00 | NUR ---
PT ADMITTED FOR CHEST ELEVATED TROPONIN ELEVATED E-DIMER A/OX4, PT AMBULATED TO BED 1PA,GAIT UNSTEADY, PT VERBALIZED LEGALLY BLIND. PT AMBULATE TO BATHROOM 1PA. PT ORIENTED TO UNIT, STAFF, VERBALIZED UNDERSTANDING OF POC. CALL LIGHT PLACE IN REACH. WILL CONT TO MONITOR PT STATUS AND SAFETY. PMRN
--- NOTE | 2020-05-12 02:50 | NUR ---
Consult call to dr Sadler for chest pain, elevated troponin ,elevated d-dimer, order given for 325mg aspirin, will cont to monitor status and safety. pmrn
[2020-05-12] MEDS ORDERED: ASPIRIN 325 MG TABLET PO ONE (03:00)
[2020-05-12] MEDS ORDERED: METOPROLOL TART IMMED RELEASE 25 MG TABLET. PO SCH (09:30)
[2020-05-12] MEDS ORDERED: SIMVASTATIN 10 MG TABLET PO SCH (09:30)
--- NOTE | 2020-05-12 09:42 | PDOC1 ---
History and Physical Date of Admission Date of Admission DATE: 05/12/20 TIME: 09:42 History of Present Illness History of Present Illness MR. Moore is a 65-year-old male admit with chestpain. He has a past medical history with pacemaker secondary to tachyarrhythmia, hypertension and hyperlipidemia He had marked new chest pain that lasted for approximately 2 hours described as an "serious pressure" with associated palpitations, lightheadedness, sore throat and shortness of breath, while watching tv. Normally follows at the [facility]. Denies any cocaine abuse. Mom from a heart attack in her 60s. Past Surgical History Past Surgical History: No pertinent history Social History ALCOHOL: none Drugs: None Current Problem List Problem List Problems Medical Problems: (1) Transaminitis Status: Acute Current Medications Current Medications Current Medications Iohexol (Omnipaque 350 Mg/ml) 100 ml 1X ONCE IV Last administered on 05/11/20at 21:07; Start 05/11/20 at 21:00; Stop 05/11/20 at 21:01; Status DC Iohexol (Omnipaque 350 Mg/ml) 100 ml STK-MED ONCE .ROUTE ; Start 05/11/20 at 20:38; Stop 05/11/20 at 20:39; Status DC Ondansetron HCl (Zofran) 4 mg PRN Q8HRS PRN IV NAUSEA/VOMITING 1ST CHOICE; Start 05/12/20 at 00:15; Stop 05/13/20 at 00:14 Morphine Sulfate (Morphine Sulfate) 2 mg PRN Q2HR PRN IV SEVERE PAIN 7-10; Start 05/12/20 at 00:15; Stop 05/13/20 at 00:14 Aspirin (Jennifer Aspirin) 325 mg 1X ONCE PO Last administered on 05/12/20at 03:14; Start 05/12/20 at 03:00; Stop 05/12/20 at 03:01; Status DC Aspirin (Ecotrin) 81 mg DAILY PO ; Start 05/12/20 at 09:30 Metoprolol Tartrate (Lopressor) 25 mg BID PO ; Start 05/12/20 at 09:30 Simvastatin (Zocor) 10 mg QHS PO ; Start 05/12/20 at 09:30 Active Scripts Active Simvastatin 10 Mg Tablet 1 Tab PO DAILY Metoprolol Tartrate 25 Mg Tablet 1 Tab PO BID Aspir-Low (Aspirin) 81 Mg Tablet. 1 Tab PO DAILY Allergies Allergies: Coded Allergies: No Known Drug Allergies (Unverified , 03/30/16) ROS General: No: Chills, Night Sweats, Fatigue, Malaise, Appetite, Other PSYCHOLOGICAL ROS: No: Anxiety, Behavioral Disorder, Concentration difficultie, Decreased libido, Depression, Disorientation, Hallucinations, Hostility, Irritablity, Memory difficulties, Mood Swings, Obsessive thoughts, Physical abuse, Sexual abuse, Sleep disturbances, Suicidal ideation, Other Eyes: No Blurry vision, No Decreased vision, No Double vision, No Dry eyes, No Excessive tearing, No Eye Pain, No Itchy Eyes, No Loss of vision, No Photophobia, No Scotomata, No Uses contacts, No Uses glasses, No Other HEENT: No: Heacaches, Visual Changes, Hearing change, Nasal congestion, Nasal discharge, Oral lesions, Sinus pain, Sore Throat, Epistaxis, Sneezing, Snoring, Tinnitus, Vertigo, Vocal changes, Other Respiratory: No: Cough, Hemoptysis, Orthopnea, Pleuritic Pain, Shortness of breath, SOB with excertion, Sputum Changes, Stridor, Tachypnea, Wheezing, Other Cardiovascular: yes Chest Pain Genitourinary: No Dysuria, No Frequency, No Incontinence, No Hematuria, No Retention, No Discharge, No Urgency, No Pain, No Flank Pain, No Other, No , No , No , No , No , No , No Musculoskeletal: Yes Joint Stiffness; No Gait Disturbance, No Joint Pain, No Joint Swelling, No Muscle Pain, No Muscular Weakness, No Pain In:, No Swelling In:, No Other Neurological: No Behavorial Changes, No Bowel/Bladder ControlChng, No Confusion, No Dizziness, No Gait Disturbance, No Headaches, No Impaired Coord/balance, No Memory Loss, No Numbness/Tingling, No Seizures, No Speech Problems, No Tremors, No Visual Changes, No Weakness, No Other Skin: Yes Dry Skin; No Eczema, No Hair Changes, No Lumps, No Mole Changes, No Mottling, No Nail Changes, No Pruritus, No Rash, No Skin Lesion Changes, No Other, No Acne Physical Exam General: Alert, Oriented X3, No acute distress HEENT: Atraumatic, PERRLA Lungs: Clear to auscultation Heart: S1S2 Extremities: No edema Skin: No significant lesion Neuro: Normal speech, Normal tone, Sensation intact Psych/Mental Status: Mental status NL, Mood NL Vitals Vitals Vital Signs Date Time Temp Pulse Resp B/P (MAP) Pulse Ox O2 Delivery O2 Flow Rate FiO2 05/12/20 07:00 98.7 80 16 148/86 (106) 99 Nasal Cannula 2.0 98.7 Labs Labs Laboratory Tests Test 05/11/20 19:09 05/11/20 19:45 05/11/20 23:07 05/11/20 23:45 White Blood Count 9.0 x10^3/uL (4.0-11.0) Red Blood Count 4.04 x10^6/uL (4.30-5.70) Hemoglobin 14.1 g/dL (13.0-17.5) Hematocrit 41.3 % (39.0-53.0) Mean Corpuscular Volume 102 fL (79-100) Mean Corpuscular Hemoglobin 35 pg (25-35) Mean Corpuscular Hemoglobin Concent 34 g/dL (31-37) Red Cell Distribution Width 14.8 % (11.5-14.5) Platelet Count 174 x10^3/uL (140-400) Neutrophils (%) (Auto) 74 % (31-73) Lymphocytes (%) (Auto) 20 % (24-48) Monocytes (%) (Auto) 5 % (0-9) Eosinophils (%) (Auto) 1 % (0-3) Basophils (%) (Auto) 1 % (0-3) Neutrophils # (Auto) 6.7 x10^3/uL (1.8-7.7) Lymphocytes # (Auto) 1.8 x10^3/uL (1.0-4.8) Monocytes # (Auto) 0.4 x10^3/uL (0.0-1.1) Eosinophils # (Auto) 0.0 x10^3/uL (0.0-0.7) Basophils # (Auto) 0.0 x10^3/uL (0.0-0.2) Prothrombin Time 13.4 SEC (11.7-14.0) Prothromb Time International Ratio 1.1 (0.8-1.1) Activated Partial Thromboplast Time 22 SEC (24-38) D-Dimer (Marcy) 2.24 ug/mlFEU (0.00-0.50) Sodium Level 139 mmol/L (136-145) Potassium Level 4.0 mmol/L (3.5-5.1) Chloride Level 100 mmol/L (98-107) Carbon Dioxide Level 17 mmol/L (21-32) Anion Gap 22 (6-14) Blood Urea Nitrogen 10 mg/dL (8-26) Creatinine 0.9 mg/dL (0.7-1.3) Estimated GFR (Cockcroft-Gault) 102.5 Glucose Level 79 mg/dL (70-99) Calcium Level 8.4 mg/dL (8.5-10.1) Magnesium Level 2.0 mg/dL (1.8-2.4) Total Bilirubin 0.7 mg/dL (0.2-1.0) Direct Bilirubin 0.3 mg/dL (0.0-0.2) Aspartate Amino Transf (AST/SGOT) 86 U/L (15-37) Alanine Aminotransferase (ALT/SGPT) 81 U/L (16-63) Alkaline Phosphatase 51 U/L (46-116) Creatine Kinase 109 U/L (39-308) Troponin I Quantitative 0.040 ng/mL (0.000-0.055) 0.057 ng/mL (0.000-0.055) TD-Btm-T-Type Natriuretic Peptide 156 pg/mL (0-124) Total Protein 7.2 g/dL (6.4-8.2) Albumin 3.8 g/dL (3.4-5.0) Lipase 96 U/L (73-393) Urine Collection Type Unknown Urine Color Yellow Urine Clarity Clear Urine pH 5.0 (<5.0-8.0) Urine Specific [place] >=1.030 (1.000-1.030) Urine Protein Negative mg/dL (NEG-TRACE) Urine Glucose (UA) Negative mg/dL (NEG) Urine Ketones (Stick) >=80 mg/dL (NEG) Urine Blood Negative (NEG) Urine Nitrite Negative (NEG) Urine Bilirubin Negative (NEG) Urine Urobilinogen Dipstick 0.2 mg/dL (0.2 mg/dL) Urine Leukocyte Esterase Negative (NEG) Urine RBC 0 /HPF (0-2) Urine WBC 0 /HPF (0-4) Urine Bacteria 0 /HPF (0-FEW) Urine Hyaline Casts Few /HPF Urine Mucus Slight /LPF Laboratory Tests Test 05/11/20 19:09 05/11/20 19:45 05/11/20 23:07 05/11/20 23:45 White Blood Count 9.0 x10^3/uL (4.0-11.0) Red Blood Count 4.04 x10^6/uL (4.30-5.70) Hemoglobin 14.1 g/dL (13.0-17.5) Hematocrit 41.3 % (39.0-53.0) Mean Corpuscular Volume 102 fL (79-100) Mean Corpuscular Hemoglobin 35 pg (25-35) Mean Corpuscular Hemoglobin Concent 34 g/dL (31-37) Red Cell Distribution Width 14.8 % (11.5-14.5) Platelet Count 174 x10^3/uL (140-400) Neutrophils (%) (Auto) 74 % (31-73) Lymphocytes (%) (Auto) 20 % (24-48) Monocytes (%) (Auto) 5 % (0-9) Eosinophils (%) (Auto) 1 % (0-3) Basophils (%) (Auto) 1 % (0-3) Neutrophils # (Auto) 6.7 x10^3/uL (1.8-7.7) Lymphocytes # (Auto) 1.8 x10^3/uL (1.0-4.8) Monocytes # (Auto) 0.4 x10^3/uL (0.0-1.1) Eosinophils # (Auto) 0.0 x10^3/uL (0.0-0.7) Basophils # (Auto) 0.0 x10^3/uL (0.0-0.2) Prothrombin Time 13.4 SEC (11.7-14.0) Prothromb Time International Ratio 1.1 (0.8-1.1) Activated Partial Thromboplast Time 22 SEC (24-38) D-Dimer (Marcy) 2.24 ug/mlFEU (0.00-0.50) Sodium Level 139 mmol/L (136-145) Potassium Level 4.0 mmol/L (3.5-5.1) Chloride Level 100 mmol/L (98-107) Carbon Dioxide Level 17 mmol/L (21-32) Anion Gap 22 (6-14) Blood Urea Nitrogen 10 mg/dL (8-26) Creatinine 0.9 mg/dL (0.7-1.3) Estimated GFR (Cockcroft-Gault) 102.5 Glucose Level 79 mg/dL (70-99) Calcium Level 8.4 mg/dL (8.5-10.1) Magnesium Level 2.0 mg/dL (1.8-2.4) Total Bilirubin 0.7 mg/dL (0.2-1.0) Direct Bilirubin 0.3 mg/dL (0.0-0.2) Aspartate Amino Transf (AST/SGOT) 86 U/L (15-37) Alanine Aminotransferase (ALT/SGPT) 81 U/L (16-63) Alkaline Phosphatase 51 U/L (46-116) Creatine Kinase 109 U/L (39-308) Troponin I Quantitative 0.040 ng/mL (0.000-0.055) 0.057 ng/mL (0.000-0.055) ZU-Wts-N-Type Natriuretic Peptide 156 pg/mL (0-124) Total Protein 7.2 g/dL (6.4-8.2) Albumin 3.8 g/dL (3.4-5.0) Lipase 96 U/L (73-393) Urine Collection Type Unknown Urine Color Yellow Urine Clarity Clear Urine pH 5.0 (<5.0-8.0) Urine Specific [place] >=1.030 (1.000-1.030) Urine Protein Negative mg/dL (NEG-TRACE) Urine Glucose (UA) Negative mg/dL (NEG) Urine Ketones (Stick) >=80 mg/dL (NEG) Urine Blood Negative (NEG) Urine Nitrite Negative (NEG) Urine Bilirubin Negative (NEG) Urine Urobilinogen Dipstick 0.2 mg/dL (0.2 mg/dL) Urine Leukocyte Esterase Negative (NEG) Urine RBC 0 /HPF (0-2) Urine WBC 0 /HPF (0-4) Urine Bacteria 0 /HPF (0-FEW) Urine Hyaline Casts Few /HPF Urine Mucus Slight /LPF VTE Prophylaxis Ordered VTE Prophylaxis Devices: Yes VTE Pharmacological Prophylaxi: Yes Assessment/Plan Assessment/Plan chest pain, unstable angina, heparin gtt, cardiology consult f/u enzymes Justicifation of Admission Dx: Justifications for Admission: Justification of Admission Dx: Yes Angina: Symp at Rest BRYAN JACOBS MD May 12, 2020 09:42
[2020-05-12] MEDS ORDERED: AZITHRMYCN 500MG IVPB FOR OMNI 250 ML IV ONE (12:00)
[2020-05-12] MEDS ORDERED: AZITHROMYCIN 500 MG in IV NORMAL SALINE 250ML 250 ML IV ONE (12:30)
[2020-05-12] MEDS: ASPIRIN ENTERIC COATED 81 MG TABLET.DR. PO SCH (13:15)
[2020-05-12] MEDS: cefTRIAXone IV Push 1 GM VIAL. IVP SCH (13:16)
--- NOTE | 2020-05-12 13:53 | PDOC2 ---
CONSULT Date of Consult Date of Consult DATE: 05/12/20 TIME: 13:39 Reason for Consult Reason for Consult: Chest pain Referring Physician Referring Physician: Dr. Castañeda Identification/Chief Complaint Chief Complaint Chest pain Source Source: Chart review, Patient History of Present Illness Reason for Visit: 65-year-old male with history of nonischemic cardiomyopathy, sick sinus syndrome s/p permanent pacemaker implantation usually followed at [facility] presented complaining of retrosternal chest pain that he described as ' elephant sitting on chest' associated with palpitations, lightheadedness and mild shortness of breath while watching television. He denied any orthopnea or syncope. His chest pain resolved after he got the ED and has not recurred. Past Medical History Past Medical History Nonischemic cardiomyopathy with EF 25% in 2018 Sick sinus syndrome s/p permanent pacemaker implantation in 07/2018 Nonobstructive coronary disease on cardiac catheterization 07/2018 Hypertension Hyperlipidemia Past Surgical History Past Surgical History Shoulder surgery Past Surgical History: No pertinent history Family History Family History Hypertension and coronary artery disease Social History 1 pack per day ALCOHOL: heavy Drugs: None Current Problem List Problem List Problems Medical Problems: (1) Transaminitis Status: Acute Current Medications Current Medications Current Medications Iohexol (Omnipaque 350 Mg/ml) 100 ml 1X ONCE IV Last administered on 05/11/20at 21:07; Start 05/11/20 at 21:00; Stop 05/11/20 at 21:01; Status DC Iohexol (Omnipaque 350 Mg/ml) 100 ml STK-MED ONCE .ROUTE ; Start 05/11/20 at 20:38; Stop 05/11/20 at 20:39; Status DC Ondansetron HCl (Zofran) 4 mg PRN Q8HRS PRN IV NAUSEA/VOMITING 1ST CHOICE; Start 05/12/20 at 00:15; Stop 05/13/20 at 00:14 Morphine Sulfate (Morphine Sulfate) 2 mg PRN Q2HR PRN IV SEVERE PAIN 7-10; Start 05/12/20 at 00:15; Stop 05/13/20 at 00:14 Aspirin (Jennifer Aspirin) 325 mg 1X ONCE PO Last administered on 05/12/20at 03:14; Start 05/12/20 at 03:00; Stop 05/12/20 at 03:01; Status DC Aspirin (Ecotrin) 81 mg DAILY PO Last administered on 05/12/20at 13:15; Start 05/12/20 at 09:30 Metoprolol Tartrate (Lopressor) 25 mg BID PO Last administered on 05/12/20at 13:16; Start 05/12/20 at 09:30 Simvastatin (Zocor) 10 mg QHS PO Last administered on 05/12/20at 13:14; Start 05/12/20 at 09:30 Ceftriaxone Sodium (Rocephin) 1 gm Q24H IVP Last administered on 05/12/20at 13:16; Start 05/12/20 at 12:00 Azithromycin 250 ml @ 250 mls/hr 1X ONCE IV ; Start 05/12/20 at 12:00; Stop 05/12/20 at 12:59; Status Cancel Azithromycin 500 mg/Sodium Chloride 250 ml @ 250 mls/hr 1X ONCE IV Last administered on 05/12/20at 13:14; Start 05/12/20 at 12:30; Stop 05/12/20 at 13:29; Status DC Active Scripts Active Simvastatin 10 Mg Tablet 1 Tab PO DAILY Metoprolol Tartrate 25 Mg Tablet 1 Tab PO BID Aspir-Low (Aspirin) 81 Mg Tablet. 1 Tab PO DAILY Allergies Allergies: Coded Allergies: No Known Drug Allergies (Unverified , 03/30/16) ROS PSYCHOLOGICAL ROS: No: Hallucinations Eyes: No Loss of vision HEENT: No: Epistaxis Respiratory: YES: Shortness of breath; No: Hemoptysis Cardiovascular: yes Chest Pain, yes Palpitations Gastrointestinal: No Vomiting, No Diarrhea Genitourinary: No Hematuria Neurological: No Seizures Skin: No Rash Physical Exam General: Alert, Oriented X3 HEENT: Atraumatic Lungs: Clear to auscultation Heart: Regular rate Abdomen: Soft Extremities: No edema Neuro: Normal speech Psych/Mental Status: Mood NL Vitals VITALS Vital Signs Date Time Temp Pulse Resp B/P (MAP) Pulse Ox O2 Delivery O2 Flow Rate FiO2 05/12/20 13:16 92 126/70 05/12/20 11:00 98.4 18 97 Room Air 98.4 05/12/20 07:00 2.0 Labs Labs Laboratory Tests Test 05/11/20 19:09 05/11/20 19:45 05/11/20 23:07 05/11/20 23:45 White Blood Count 9.0 x10^3/uL (4.0-11.0) Red Blood Count 4.04 x10^6/uL (4.30-5.70) Hemoglobin 14.1 g/dL (13.0-17.5) Hematocrit 41.3 % (39.0-53.0) Mean Corpuscular Volume 102 fL (79-100) Mean Corpuscular Hemoglobin 35 pg (25-35) Mean Corpuscular Hemoglobin Concent 34 g/dL (31-37) Red Cell Distribution Width 14.8 % (11.5-14.5) Platelet Count 174 x10^3/uL (140-400) Neutrophils (%) (Auto) 74 % (31-73) Lymphocytes (%) (Auto) 20 % (24-48) Monocytes (%) (Auto) 5 % (0-9) Eosinophils (%) (Auto) 1 % (0-3) Basophils (%) (Auto) 1 % (0-3) Neutrophils # (Auto) 6.7 x10^3/uL (1.8-7.7) Lymphocytes # (Auto) 1.8 x10^3/uL (1.0-4.8) Monocytes # (Auto) 0.4 x10^3/uL (0.0-1.1) Eosinophils # (Auto) 0.0 x10^3/uL (0.0-0.7) Basophils # (Auto) 0.0 x10^3/uL (0.0-0.2) Prothrombin Time 13.4 SEC (11.7-14.0) Prothromb Time International Ratio 1.1 (0.8-1.1) Activated Partial Thromboplast Time 22 SEC (24-38) D-Dimer (Marcy) 2.24 ug/mlFEU (0.00-0.50) Sodium Level 139 mmol/L (136-145) Potassium Level 4.0 mmol/L (3.5-5.1) Chloride Level 100 mmol/L (98-107) Carbon Dioxide Level 17 mmol/L (21-32) Anion Gap 22 (6-14) Blood Urea Nitrogen 10 mg/dL (8-26) Creatinine 0.9 mg/dL (0.7-1.3) Estimated GFR (Cockcroft-Gault) 102.5 Glucose Level 79 mg/dL (70-99) Calcium Level 8.4 mg/dL (8.5-10.1) Magnesium Level 2.0 mg/dL (1.8-2.4) Total Bilirubin 0.7 mg/dL (0.2-1.0) Direct Bilirubin 0.3 mg/dL (0.0-0.2) Aspartate Amino Transf (AST/SGOT) 86 U/L (15-37) Alanine Aminotransferase (ALT/SGPT) 81 U/L (16-63) Alkaline Phosphatase 51 U/L (46-116) Creatine Kinase 109 U/L (39-308) Troponin I Quantitative 0.040 ng/mL (0.000-0.055) 0.057 ng/mL (0.000-0.055) ZA-Rvc-N-Type Natriuretic Peptide 156 pg/mL (0-124) Total Protein 7.2 g/dL (6.4-8.2) Albumin 3.8 g/dL (3.4-5.0) Lipase 96 U/L (73-393) Urine Collection Type Unknown Urine Color Yellow Urine Clarity Clear Urine pH 5.0 (<5.0-8.0) Urine Specific [place] >=1.030 (1.000-1.030) Urine Protein Negative mg/dL (NEG-TRACE) Urine Glucose (UA) Negative mg/dL (NEG) Urine Ketones (Stick) >=80 mg/dL (NEG) Urine Blood Negative (NEG) Urine Nitrite Negative (NEG) Urine Bilirubin Negative (NEG) Urine Urobilinogen Dipstick 0.2 mg/dL (0.2 mg/dL) Urine Leukocyte Esterase Negative (NEG) Urine RBC 0 /HPF (0-2) Urine WBC 0 /HPF (0-4) Urine Bacteria 0 /HPF (0-FEW) Urine Hyaline Casts Few /HPF Urine Mucus Slight /LPF Test 05/12/20 09:10 Troponin I Quantitative 0.089 ng/mL (0.000-0.055) Laboratory Tests Test 05/11/20 19:09 05/11/20 19:45 05/11/20 23:07 05/11/20 23:45 White Blood Count 9.0 x10^3/uL (4.0-11.0) Red Blood Count 4.04 x10^6/uL (4.30-5.70) Hemoglobin 14.1 g/dL (13.0-17.5) Hematocrit 41.3 % (39.0-53.0) Mean Corpuscular Volume 102 fL (79-100) Mean Corpuscular Hemoglobin 35 pg (25-35) Mean Corpuscular Hemoglobin Concent 34 g/dL (31-37) Red Cell Distribution Width 14.8 % (11.5-14.5) Platelet Count 174 x10^3/uL (140-400) Neutrophils (%) (Auto) 74 % (31-73) Lymphocytes (%) (Auto) 20 % (24-48) Monocytes (%) (Auto) 5 % (0-9) Eosinophils (%) (Auto) 1 % (0-3) Basophils (%) (Auto) 1 % (0-3) Neutrophils # (Auto) 6.7 x10^3/uL (1.8-7.7) Lymphocytes # (Auto) 1.8 x10^3/uL (1.0-4.8) Monocytes # (Auto) 0.4 x10^3/uL (0.0-1.1) Eosinophils # (Auto) 0.0 x10^3/uL (0.0-0.7) Basophils # (Auto) 0.0 x10^3/uL (0.0-0.2) Prothrombin Time 13.4 SEC (11.7-14.0) Prothromb Time International Ratio 1.1 (0.8-1.1) Activated Partial Thromboplast Time 22 SEC (24-38) D-Dimer (Marcy) 2.24 ug/mlFEU (0.00-0.50) Sodium Level 139 mmol/L (136-145) Potassium Level 4.0 mmol/L (3.5-5.1) Chloride Level 100 mmol/L (98-107) Carbon Dioxide Level 17 mmol/L (21-32) Anion Gap 22 (6-14) Blood Urea Nitrogen 10 mg/dL (8-26) Creatinine 0.9 mg/dL (0.7-1.3) Estimated GFR (Cockcroft-Gault) 102.5 Glucose Level 79 mg/dL (70-99) Calcium Level 8.4 mg/dL (8.5-10.1) Magnesium Level 2.0 mg/dL (1.8-2.4) Total Bilirubin 0.7 mg/dL (0.2-1.0) Direct Bilirubin 0.3 mg/dL (0.0-0.2) Aspartate Amino Transf (AST/SGOT) 86 U/L (15-37) Alanine Aminotransferase (ALT/SGPT) 81 U/L (16-63) Alkaline Phosphatase 51 U/L (46-116) Creatine Kinase 109 U/L (39-308) Troponin I Quantitative 0.040 ng/mL (0.000-0.055) 0.057 ng/mL (0.000-0.055) CH-Ogk-P-Type Natriuretic Peptide 156 pg/mL (0-124) Total Protein 7.2 g/dL (6.4-8.2) Albumin 3.8 g/dL (3.4-5.0) Lipase 96 U/L (73-393) Urine Collection Type Unknown Urine Color Yellow Urine Clarity Clear Urine pH 5.0 (<5.0-8.0) Urine Specific [place] >=1.030 (1.000-1.030) Urine Protein Negative mg/dL (NEG-TRACE) Urine Glucose (UA) Negative mg/dL (NEG) Urine Ketones (Stick) >=80 mg/dL (NEG) Urine Blood Negative (NEG) Urine Nitrite Negative (NEG) Urine Bilirubin Negative (NEG) Urine Urobilinogen Dipstick 0.2 mg/dL (0.2 mg/dL) Urine Leukocyte Esterase Negative (NEG) Urine RBC 0 /HPF (0-2) Urine WBC 0 /HPF (0-4) Urine Bacteria 0 /HPF (0-FEW) Urine Hyaline Casts Few /HPF Urine Mucus Slight /LPF Test 05/12/20 09:10 Troponin I Quantitative 0.089 ng/mL (0.000-0.055) Assessment/Plan Assessment/Plan 1. Chest pain with typical features and troponin level slightly elevated consistent with non-STEMI. Patient has history of nonobstructive coronary artery disease on cardiac catheterization in 2018. Start heparin infusion per protocol and plan cardiac catheterization possibly Friday. Continue aspirin and beta-blockers. 2. Nonischemic cardiomyopathy with LVEF 25% in 2018. He is clinically well compensated. We will obtain more recent records from [facility] and repeat 2D echocardiogram. 3. Sick sinus syndrome s/p permanent pacemaker implantation. Telemetry showed several episodes of nonsustained ventricular tachycardia. This could be causing his palpitations. We will have his pacemaker interrogated to confirm this and assess NSVT burden. 4. Hypertension: Better controlled since admission. 5. Hyperlipidemia: Continue statin therapy Thank you for your consultation IRVIN GORDILLO MD May 12, 2020 13:53
[2020-05-12] MEDS ORDERED: HEPARIN for IV BOLUS 10,000 UNIT/10 ML VIAL. IV PRN (14:00)
[2020-05-12] MEDS: HEPARIN 25,000UTS/250ML PREMIX 250 ML IV PRN (14:35)
[2020-05-12] MEDS ORDERED: BRIN8DRO OP (15:57)
[2020-05-12] MEDS ORDERED: ATOR40TA59 PO (15:57)
[2020-05-12] MEDS ORDERED: LISI10TA2 PO (15:57)
[2020-05-12] MEDS ORDERED: CHOL500021 PO (15:57)
[2020-05-12] MEDS ORDERED: METO200T46 PO (15:57)
[2020-05-12] MEDS ORDERED: LATA2.5D3 OP (15:57)
[2020-05-12] MEDS ORDERED: TIMO10DR5 EACHEYE (15:57)
[2020-05-12] MEDS ORDERED: NICO1PAT21 TP (15:57)
[2020-05-12] MEDS ORDERED: SILD20TA4 PO (15:57)
[2020-05-12] MEDS: NICOTINE 21MG PATCH. TD SCH (17:13)
[2020-05-12] MEDS: METOPROLOL SUCC 24HR ER 100 MG TAB.ER.24H. PO SCH (17:14)
[2020-05-12] MEDS: LISINOPRIL 10 MG TABLET PO SCH (17:14)
[2020-05-12] MEDS: ATORVASTATIN CALCIUM 40 MG TABLET. PO SCH (20:40)
[2020-05-12] MEDS: LACTOBACILLUS RHAMNOSUS GG 1 CAPSULE. PO SCH (20:40)
[2020-05-12] MEDS: BRINZOLAMIDE OU SCH (20:41)
[2020-05-12] MEDS: BRIMONID TART OU SCH (20:41)
[2020-05-12] MEDS: LATANOPROST 0.005% OPHTH SOLUTION 2.5ML BOTTLE. OU SCH (20:43)
[2020-05-12] MEDS: TIMOLOL 0.5% OPHTH SOLUTION 5ML BOTTLE. OU SCH (20:43)
[2020-05-13 03:59] VITALS: BP 119/80
[2020-05-13 07:00] VITALS: BP 125/78
[2020-05-13] MEDS: ASPIRIN ENTERIC COATED 81 MG TABLET.DR. PO SCH (08:58)
[2020-05-13] MEDS: CHOLECALCIFEROL (VITAMIN D3) 1,000 UNIT TABLET PO SCH (08:58)
[2020-05-13] MEDS: METOPROLOL SUCC 24HR ER 100 MG TAB.ER.24H. PO SCH (08:58)
[2020-05-13] MEDS: LISINOPRIL 10 MG TABLET PO SCH (08:58)
[2020-05-13] MEDS: LACTOBACILLUS RHAMNOSUS GG 1 CAPSULE. PO SCH ×2 (08:58→21:05)
[2020-05-13] MEDS: TIMOLOL 0.5% OPHTH SOLUTION 5ML BOTTLE. OU SCH ×2 (09:00→21:04)
[2020-05-13] MEDS: BRINZOLAMIDE OU SCH ×2 (09:02→21:00)
[2020-05-13] MEDS: BRIMONID TART OU SCH ×2 (09:02→21:00)
[2020-05-13] MEDS: NICOTINE 21MG PATCH. TD SCH (09:04)
--- NOTE | 2020-05-13 09:56 | PDOC ---
PROGRESS NOTES Subjective Subjective Denied any further episodes of chest pain. Objective Objective Vital Signs Date Time Temp Pulse Resp B/P (MAP) Pulse Ox O2 Delivery O2 Flow Rate FiO2 05/13/20 08:58 79 125/78 05/13/20 07:00 98.6 18 96 Room Air 98.6 05/12/20 19:50 2.0 Intake and Output 05/13/20 07:00 Intake Total 520 ml Output Total 200 ml Balance 320 ml Intake Oral 520 ml Output Urine Total 200 ml # Voids 3 Physical Exam Abdomen: Soft Heart: Regular rate Extremities: No edema General: Alert, Oriented X3 HEENT: Atraumatic Lungs: Clear to auscultation Neuro: Normal speech Psych/Mental Status: Mood NL Assessment Assessment 1. Chest pain with typical features and troponin level slightly elevated consistent with non-STEMI. Patient has history of nonobstructive coronary artery disease on cardiac catheterization in 2018. Continue heparin infusion per protocol and plan cardiac catheterization possibly Friday. Continue aspirin and beta-blockers. 2. Nonischemic cardiomyopathy with LVEF 25% in 2018. He is clinically well compensated. We will obtain more recent records from [facility] and repeat 2D echocardiogram. If EF is still low, consider upgrading pacemaker to AICD. 3. Sick sinus syndrome s/p permanent pacemaker implantation. Telemetry showed several episodes of nonsustained ventricular tachycardia, probably the cause of his palpitations. Pacemaker interrogation confirmed recurrent episodes of NSVT starting beginning of April. Magnesium level normal. We will consider antiarrhythmic therapy once ischemic etiology is ruled out. 4. Hypertension: Better controlled since admission. 5. Hyperlipidemia: Continue statin therapy Plan Plan of Care Problems Medical Problems: (1) Transaminitis Status: Acute Comment Review of Relevant I have reviewed the following items lashon (where applicable) has been applied. Labs Laboratory Tests Test 05/12/20 20:52 05/13/20 04:15 Heparin Anti-Xa Act, Unfractionated 0.15 IU/mL (0.30-0.70) 0.33 IU/mL (0.30-0.70) Troponin I Quantitative 0.066 ng/mL (0.000-0.055) Medications Current Medications Atorvastatin Calcium (Lipitor) 40 mg HS PO Last administered on 05/12/20at 20:40; Start 05/12/20 at 21:00 Azithromycin 250 ml @ 250 mls/hr 1X ONCE IV ; Start 05/12/20 at 12:00; Stop 05/12/20 at 12:59; Status Cancel Azithromycin 500 mg/Sodium Chloride 250 ml @ 250 mls/hr 1X ONCE IV Last administered on 05/12/20 13:14; Start 05/12/20 at 12:30; Stop 05/12/20 at 13:29; Status DC Ceftriaxone Sodium (Rocephin) 1 gm Q24H IVP Last administered on 05/12/20at 13:16; Start 05/12/20 at 12:00 Heparin Sodium (Porcine) (Heparin Sodium) 1,750 unit PRN Q6HRS PRN IV FOR UFH LEVEL LESS THAN 0.2 Last administered on 05/12/20 22:29; Start 05/12/20 at 14:00 Heparin Sodium/ Dextrose 250 ml @ 8.3 mls/hr CONT PRN IV PER PROTOCOL Last administered on 05/12/20 14:35; Start 05/12/20 at 14:00 Lactobacillus Rhamnosus (Culturelle) 1 cap BID PO Last administered on 05/13/20 08:58; Start 05/12/20 at 21:00 Latanoprost (Xalatan) 1 drop HS OU Last administered on 05/12/20 20:43; Start 05/12/20 at 21:00 Lisinopril (Prinivil) 10 mg DAILY PO Last administered on 05/13/20 08:58; Start 05/12/20 at 16:15 Metoprolol Succinate (Toprol Xl) 100 mg DAILY PO Last administered on 05/13/20 08:58; Start 05/12/20 at 16:15 Nicotine (Nicoderm Cq 21mg) 1 patch DAILY TD Last administered on 05/13/20 09:04; Start 05/12/20 at 16:30 Non-Formulary Medication (Brinzolamide/ Brimonid Tart (Simbrinza 1%-0.2% Eye Drops)) 1 ml BID OU Last administered on 05/13/20 09:02; Start 05/12/20 at 21:00 Timolol Maleate (Timoptic 0.5% Oph) 1 drop BID OU Last administered on 05/13/20 09:00; Start 05/12/20 at 21:00 Vitamin D (Vitamin D3) 2,000 unit DAILY PO Last administered on 05/13/20at 08:58; Start 05/13/20 at 09:00 Vitals/I & O Vital Sign - Last 24 Hours 05/12/20 05/12/20 05/12/20 05/12/20 11:00 13:16 15:00 17:14 Temp 98.4 98.4 98.4 98.4 Pulse 81 92 79 79 Resp 18 16 B/P (MAP) 12/81 (58) 126/70 119/81 (94) 119/81 Pulse Ox 97 98 O2 Delivery Room Air Room Air 05/12/20 05/12/20 05/12/20 05/12/20 17:14 19:35 19:50 23:20 Temp 98.2 98.1 98.2 98.1 Pulse 79 87 85 Resp 17 17 B/P (MAP) 119/81 108/73 (85) 112/77 (89) Pulse Ox 97 98 O2 Delivery Room Air Room Air Room Air O2 Flow Rate 2.0 05/13/20 05/13/20 05/13/20 05/13/20 03:59 07:00 08:58 08:58 Temp 98.5 98.6 98.5 98.6 Pulse 82 78 87 79 Resp 17 18 B/P (MAP) 119/80 (93) 125/78 (94) 125/78 125/78 Pulse Ox 97 96 O2 Delivery Room Air Room Air Intake and Output 05/12/20 05/12/20 05/13/20 15:00 23:00 07:00 Intake Total 120 ml 400 ml Output Total 200 ml Balance 120 ml 200 ml IRVIN GORDILLO MD May 13, 2020 09:56
[2020-05-13 11:01] VITALS: BP 105/68
--- NOTE | 2020-05-13 12:03 | PDOC ---
PROGRESS NOTES Chief Complaint Chief Complaint chest pain, unstable angina, heparin gtt, NSTEMI cardiology consult f/u enzymes History of Present Illness History of Present Illness wants to shower, feels well Vitals Vitals Vital Signs Date Time Temp Pulse Resp B/P (MAP) Pulse Ox O2 Delivery O2 Flow Rate FiO2 05/13/20 11:01 98.5 77 18 105/68 (80) 97 Room Air 98.5 05/12/20 19:50 2.0 Physical Exam General: Alert, Oriented X3, No acute distress Heart: Regular rate Lungs: Clear Abdomen: Soft Extremities: No edema Skin: No significant lesion Labs LABS Laboratory Tests Test 05/12/20 20:52 05/13/20 04:15 Heparin Anti-Xa Act, Unfractionated 0.15 IU/mL (0.30-0.70) 0.33 IU/mL (0.30-0.70) Troponin I Quantitative 0.066 ng/mL (0.000-0.055) Assessment and Plan Assessmemt and Plan Problems Medical Problems: (1) Transaminitis Status: Acute Comment Review of Relevant I have reviewed the following items lashon (where applicable) has been applied. Labs Laboratory Tests Test 05/11/20 19:09 05/11/20 19:45 05/11/20 23:07 05/11/20 23:45 White Blood Count 9.0 x10^3/uL (4.0-11.0) Red Blood Count 4.04 x10^6/uL (4.30-5.70) Hemoglobin 14.1 g/dL (13.0-17.5) Hematocrit 41.3 % (39.0-53.0) Mean Corpuscular Volume 102 fL (79-100) Mean Corpuscular Hemoglobin 35 pg (25-35) Mean Corpuscular Hemoglobin Concent 34 g/dL (31-37) Red Cell Distribution Width 14.8 % (11.5-14.5) Platelet Count 174 x10^3/uL (140-400) Neutrophils (%) (Auto) 74 % (31-73) Lymphocytes (%) (Auto) 20 % (24-48) Monocytes (%) (Auto) 5 % (0-9) Eosinophils (%) (Auto) 1 % (0-3) Basophils (%) (Auto) 1 % (0-3) Neutrophils # (Auto) 6.7 x10^3/uL (1.8-7.7) Lymphocytes # (Auto) 1.8 x10^3/uL (1.0-4.8) Monocytes # (Auto) 0.4 x10^3/uL (0.0-1.1) Eosinophils # (Auto) 0.0 x10^3/uL (0.0-0.7) Basophils # (Auto) 0.0 x10^3/uL (0.0-0.2) Prothrombin Time 13.4 SEC (11.7-14.0) Prothromb Time International Ratio 1.1 (0.8-1.1) Activated Partial Thromboplast Time 22 SEC (24-38) D-Dimer (Marcy) 2.24 ug/mlFEU (0.00-0.50) Sodium Level 139 mmol/L (136-145) Potassium Level 4.0 mmol/L (3.5-5.1) Chloride Level 100 mmol/L (98-107) Carbon Dioxide Level 17 mmol/L (21-32) Anion Gap 22 (6-14) Blood Urea Nitrogen 10 mg/dL (8-26) Creatinine 0.9 mg/dL (0.7-1.3) Estimated GFR (Cockcroft-Gault) 102.5 Glucose Level 79 mg/dL (70-99) Calcium Level 8.4 mg/dL (8.5-10.1) Magnesium Level 2.0 mg/dL (1.8-2.4) Total Bilirubin 0.7 mg/dL (0.2-1.0) Direct Bilirubin 0.3 mg/dL (0.0-0.2) Aspartate Amino Transf (AST/SGOT) 86 U/L (15-37) Alanine Aminotransferase (ALT/SGPT) 81 U/L (16-63) Alkaline Phosphatase 51 U/L (46-116) Creatine Kinase 109 U/L (39-308) Troponin I Quantitative 0.040 ng/mL (0.000-0.055) 0.057 ng/mL (0.000-0.055) DG-Bwy-L-Type Natriuretic Peptide 156 pg/mL (0-124) Total Protein 7.2 g/dL (6.4-8.2) Albumin 3.8 g/dL (3.4-5.0) Lipase 96 U/L (73-393) Urine Collection Type Unknown Urine Color Yellow Urine Clarity Clear Urine pH 5.0 (<5.0-8.0) Urine Specific [place] >=1.030 (1.000-1.030) Urine Protein Negative mg/dL (NEG-TRACE) Urine Glucose (UA) Negative mg/dL (NEG) Urine Ketones (Stick) >=80 mg/dL (NEG) Urine Blood Negative (NEG) Urine Nitrite Negative (NEG) Urine Bilirubin Negative (NEG) Urine Urobilinogen Dipstick 0.2 mg/dL (0.2 mg/dL) Urine Leukocyte Esterase Negative (NEG) Urine RBC 0 /HPF (0-2) Urine WBC 0 /HPF (0-4) Urine Bacteria 0 /HPF (0-FEW) Urine Hyaline Casts Few /HPF Urine Mucus Slight /LPF Test 05/12/20 09:10 05/12/20 20:52 05/13/20 04:15 Troponin I Quantitative 0.089 ng/mL (0.000-0.055) 0.066 ng/mL (0.000-0.055) Heparin Anti-Xa Act, Unfractionated 0.15 IU/mL (0.30-0.70) 0.33 IU/mL (0.30-0.70) Laboratory Tests Test 05/12/20 20:52 05/13/20 04:15 Heparin Anti-Xa Act, Unfractionated 0.15 IU/mL (0.30-0.70) 0.33 IU/mL (0.30-0.70) Troponin I Quantitative 0.066 ng/mL (0.000-0.055) Medications Current Medications Iohexol (Omnipaque 350 Mg/ml) 100 ml 1X ONCE IV Last administered on 05/11/20at 21:07; Start 05/11/20 at 21:00; Stop 05/11/20 at 21:01; Status DC Iohexol (Omnipaque 350 Mg/ml) 100 ml STK-MED ONCE .ROUTE ; Start 05/11/20 at 20:38; Stop 05/11/20 at 20:39; Status DC Ondansetron HCl (Zofran) 4 mg PRN Q8HRS PRN IV NAUSEA/VOMITING 1ST CHOICE; Start 05/12/20 at 00:15; Stop 05/13/20 at 00:14; Status DC Morphine Sulfate (Morphine Sulfate) 2 mg PRN Q2HR PRN IV SEVERE PAIN 7-10; Start 05/12/20 at 00:15; Stop 05/13/20 at 00:14; Status DC Aspirin (Jennifer Aspirin) 325 mg 1X ONCE PO Last administered on 05/12/20at 03:14; Start 05/12/20 at 03:00; Stop 05/12/20 at 03:01; Status DC Aspirin (Ecotrin) 81 mg DAILY PO Last administered on 05/13/20at 08:58; Start 05/12/20 at 09:30 Metoprolol Tartrate (Lopressor) 25 mg BID PO Last administered on 05/12/20at 13:16; Start 05/12/20 at 09:30; Stop 05/12/20 at 16:08; Status DC Simvastatin (Zocor) 10 mg QHS PO Last administered on 05/12/20at 13:14; Start 05/12/20 at 09:30; Stop 05/12/20 at 16:08; Status DC Ceftriaxone Sodium (Rocephin) 1 gm Q24H IVP Last administered on 05/12/20at 13:16; Start 05/12/20 at 12:00 Azithromycin 250 ml @ 250 mls/hr 1X ONCE IV ; Start 05/12/20 at 12:00; Stop 05/12/20 at 12:59; Status Cancel Azithromycin 500 mg/Sodium Chloride 250 ml @ 250 mls/hr 1X ONCE IV Last administered on 05/12/20at 13:14; Start 05/12/20 at 12:30; Stop 05/12/20 at 13:29; Status DC Heparin Sodium/ Dextrose 250 ml @ 8.3 mls/hr CONT PRN IV PER PROTOCOL Last administered on 05/12/20at 14:35; Start 05/12/20 at 14:00 Heparin Sodium (Porcine) (Heparin Sodium) 1,750 unit PRN Q6HRS PRN IV FOR UFH LEVEL LESS THAN 0.2 Last administered on 05/12/20at 22:29; Start 05/12/20 at 14:00 Lactobacillus Rhamnosus (Culturelle) 1 cap BID PO Last administered on 05/13/20at 08:58; Start 05/12/20 at 21:00 Atorvastatin Calcium (Lipitor) 40 mg HS PO Last administered on 05/12/20at 20:40; Start 05/12/20 at 21:00 Latanoprost (Xalatan) 1 drop HS OU Last administered on 05/12/20at 20:43; Start 05/12/20 at 21:00 Lisinopril (Prinivil) 10 mg DAILY PO Last administered on 05/13/20 08:58; Start 05/12/20 at 16:15 Nicotine (Nicoderm Cq 21mg) 1 patch DAILY TD Last administered on 05/13/20at 09:04; Start 05/12/20 at 16:30 Timolol Maleate (Timoptic 0.5% Ophth) 1 drop BID OU Last administered on 05/13/20at 09:00; Start 05/12/20 at 21:00 Non-Formulary Medication (Brinzolamide/ Brimonid Tart (Simbrinza 1%-0.2% Eye Drops)) 1 ml BID OU Last administered on 05/13/20at 09:02; Start 05/12/20 at 21:00 Vitamin D (Vitamin D3) 2,000 unit DAILY PO Last administered on 05/13/20at 08:58; Start 05/13/20 at 09:00 Metoprolol Succinate (Toprol Xl) 100 mg DAILY PO Last administered on 05/13/20at 08:58; Start 05/12/20 at 16:15 Active Scripts Active Aspir-Low (Aspirin) 81 Mg Tablet. 1 Tab PO DAILY Reported Atorvastatin Calcium 40 Mg Tablet 40 Mg PO HS Simbrinza 1%-0.2% Eye Drops (Brinzolamide/Brimonid Tart) 8 Ml Drops.susp 8 Ml OP BID NICODERM CQ 21mg (Nicotine) 1 Each Patch.td24 1 Patch TP DAILY Latanoprost 2.5 Ml Drops 1 Drop OP HS Timoptic 0.5% (Timolol Maleate) 10 Ml Drops 1 Drop EACHEYE BID 30 Days Sildenafil (Sildenafil Citrate) 20 Mg Tablet 50 Mg PO PRN PRN Metoprolol Succinate ( Xl ) (Metoprolol Succinate) 200 Mg Tab.er.24h 100 Mg PO DAILY Lisinopril 10 Mg Tablet 10 Mg PO DAILY D3-50 (Cholecalciferol (Vitamin D3)) 50,000 Unit Capsule 2,000 Unit PO DAILY Vitals/I & O Vital Sign - Last 24 Hours 05/12/20 05/12/20 05/12/20 05/12/20 13:16 15:00 17:14 17:14 Temp 98.4 98.4 Pulse 92 79 79 79 Resp 16 B/P (MAP) 126/70 119/81 (94) 119/81 119/81 Pulse Ox 98 O2 Delivery Room Air 05/12/20 05/12/20 05/12/20 05/13/20 19:35 19:50 23:20 03:59 Temp 98.2 98.1 98.5 98.2 98.1 98.5 Pulse 87 85 82 Resp 17 17 17 B/P (MAP) 108/73 (85) 112/77 (89) 119/80 (93) Pulse Ox 97 98 97 O2 Delivery Room Air Room Air Room Air Room Air O2 Flow Rate 2.0 05/13/20 05/13/20 05/13/20 05/13/20 07:00 08:58 08:58 11:01 Temp 98.6 98.5 98.6 98.5 Pulse 78 87 79 77 Resp 18 18 B/P (MAP) 125/78 (94) 125/78 125/78 105/68 (80) Pulse Ox 96 97 O2 Delivery Room Air Room Air Intake and Output 05/12/20 05/12/20 05/13/20 15:00 23:00 07:00 Intake Total 120 ml 400 ml Output Total 200 ml Balance 120 ml 200 ml Justicifation of Admission Dx: Justifications for Admission: Justification of Admission Dx: Yes Angina: Symp at Rest BRYAN JACOBS MD May 13, 2020 12:03
[2020-05-13] MEDS: cefTRIAXone IV Push 1 GM VIAL. IVP SCH (13:00)
[2020-05-13 14:34] VITALS: BP 103/75
[2020-05-13] MEDS: HEPARIN 25,000UTS/250ML PREMIX 250 ML IV PRN (16:07)
[2020-05-13 19:24] VITALS: BP 115/78
[2020-05-13] MEDS: ATORVASTATIN CALCIUM 40 MG TABLET. PO SCH (21:05)
[2020-05-13] MEDS: LATANOPROST 0.005% OPHTH SOLUTION 2.5ML BOTTLE. OU SCH (21:05)
[2020-05-13 22:45] VITALS: BP 116/80
[2020-05-14] VITALS (14 sets, daily range): BP systolic 105–133; BP diastolic 63–92
[2020-05-14] MEDS: LACTOBACILLUS RHAMNOSUS GG 1 CAPSULE. PO SCH ×2 (08:20→22:40)
[2020-05-14] MEDS: LISINOPRIL 10 MG TABLET PO SCH (08:20)
[2020-05-14] MEDS: CHOLECALCIFEROL (VITAMIN D3) 1,000 UNIT TABLET PO SCH (08:20)
[2020-05-14] MEDS: METOPROLOL SUCC 24HR ER 100 MG TAB.ER.24H. PO SCH (08:21)
[2020-05-14] MEDS: ASPIRIN ENTERIC COATED 81 MG TABLET.DR. PO SCH (08:21)
[2020-05-14] MEDS: NICOTINE 21MG PATCH. TD SCH (08:21)
[2020-05-14] MEDS: TIMOLOL 0.5% OPHTH SOLUTION 5ML BOTTLE. OU SCH ×2 (08:22→22:47)
[2020-05-14] MEDS: BRIMONID TART OU SCH ×2 (08:22→22:44)
[2020-05-14] MEDS: BRINZOLAMIDE OU SCH ×2 (08:22→22:44)
[2020-05-14] MEDS ORDERED: fentaNYL PF VIAL 100 MCG/2 ML VIAL ONE (12:34)
[2020-05-14] MEDS ORDERED: NITROGLYCERIN 200 MCG/2 ML SYRINGE FOR CATH/VASC LAB. ONE (12:35)
[2020-05-14] MEDS ORDERED: MIDAZOLAM HCL/PF 5 MG/5 ML VIAL. ONE (12:35)
[2020-05-14] MEDS ORDERED: VERAPAMIL 5 MG/2 ML VIAL. ONE (12:35)
[2020-05-14] MEDS ORDERED: HEPARIN for IV BOLUS 10,000 UNIT/10 ML VIAL. ONE (12:35)
[2020-05-14] MEDS ORDERED: IOHEXOL 300 MG/ML 100ML VIAL. ONE (12:40)
[2020-05-14] MEDS ORDERED: LIDOCAINE 1% PF 2 ML VIAL. ONE ×2 (12:40→12:43)
[2020-05-14] MEDS ORDERED: BIVALIRUDIN 250 MG VIAL. IV ONE ×2 (13:25→13:45)
[2020-05-14] MEDS ORDERED: IOHEXOL 300 MG/ML 100ML VIAL. IART ONE (13:30)
[2020-05-14] MEDS ORDERED: LIDOCAINE 1% PF 2 ML VIAL. INJ ONE (13:30)
[2020-05-14] MEDS ORDERED: fentaNYL PF VIAL 100 MCG/2 ML VIAL IV ONE (13:30)
[2020-05-14] MEDS ORDERED: MIDAZOLAM HCL/PF 5 MG/5 ML VIAL. IV ONE (13:30)
[2020-05-14] MEDS ORDERED: VERAPAMIL 5 MG/2 ML VIAL. IART ONE (13:30)
[2020-05-14] MEDS ORDERED: NITROGLYCERIN 200 MCG/2 ML SYRINGE FOR CATH/VASC LAB. IART ONE (13:30)
[2020-05-14] MEDS ORDERED: HEPARIN for IV BOLUS 10,000 UNIT/10 ML VIAL. IART ONE (13:30)
[2020-05-14] MEDS ORDERED: IODIXANOL 320 MG/ML 100 ML VIAL. ONE (14:01)
--- NOTE | 2020-05-14 14:17 | PDOC ---
MODERATE SEDATION ASSESSMENT RISKS/ALTERNATIVES Risks/Alternatives Risks and alternatives of this type of sedation and procedure discussed with: RISK/ALTERNATIVES: Patient H & P ON CHART H & P H & P on chart and reviewed for co-morbid conditions and appropriate labs. H&P ON CHART: Yes STATUS PREG STATUS ASSESSED: N/A MEDS/ALLERGIES REVIEWED Meds/Allergies Reviewed Medications and Allergies including time and route of recently administered narcotics and sedatives. MEDS/ALLERGIES REVIEWED: Yes ASA RATING ASA RATING: III AIRWAY ASSESSMENT Airway Assessment Airway patency, oral function limitations, presence of caps, crowns, dentures, partials, and ability to extend neck assessed. AIRWAY ASSESSMENT: Yes MALLAMPATI SCORE MALLAMPATI SCORE: II PRE-SEDATION ASSESSMENT PRE-SEDATION ASSESSMENT: Yes IRVIN GORDILLO MD May 14, 2020 14:17
[2020-05-14] MEDS ORDERED: ACETAMINOPHEN 325 MG TABLET. PO PRN (14:30)
[2020-05-14] MEDS ORDERED: 0.9 % SODIUM CHLORIDE 10 ML DISP.SYRIN. IV PRN (14:30)
[2020-05-14] MEDS: cefTRIAXone IV Push 1 GM VIAL. IVP SCH (14:41)
--- NOTE | 2020-05-14 14:46 | CARD ---
MR#: [id number] Date of Study: 05/14/2020 Ordering Physician: IRVIN SADLER, Referring Physician: IRVIN SADLER, Tech: RT Jeb (R) APPROVED REPORT Technologist: RT Jeb (R) Nurse: Rosio Joshi R.N. Procedure(s) performed: 1. Left heart catheterization, selective coronary angiography and left ventr iculography via right transradial approach 2. PTCA to the left circumflex artery Flouro Time: 27.0 min Dose: 88.967 Gycm2 Sedation Time: 74 min Contrast: 178 mL Omni 300 INDICATION The indication(s) include : non-STEMI . CS Clinical Frailty Scale [facility] Clinical Frailty Scale: Managing Well Heart Failure Heart Failure: No PROCEDURE NARRATIVE After explaining the risks, benefits and alternative options, informed consent was obtained from nel ent. Patient was brought to the cardiac Education Sales Consultant and right wrist was prepped and draped in the usual fashion after confirming a positive modified Devin's test. Arterial access was obtained in the righ t radial artery and a 6 Mauritian sheath was inserted. 6 Mauritian Callum catheter was used to perform adamaris ective angiography of the left and right coronary arteries. 6 Mauritian pigtail catheter was used to pe rform left ventriculography. The following findings were noted. FINDINGS 1. Hemodynamics: Left ventricular end-diastolic pressure of 6 mmHg. No pullback gradient across the aortic valve. 2. Left ventriculography: Severe left ventricular systolic dysfunction with ejection fraction estima nurys at 25%. No significant mitral regurgitation seen. 3. Coronary angiography: a. The left main coronary artery arose from the left sinus of Valsalva, gave rise to the left anteri or descending and left circumflex arteries and did not show any significant stenosis. b. The left anterior descending artery showed 30% stenosis in the midsegment. c. The left circumflex artery was a dominant vessel that showed 30% stenosis in the midsegment and 1 00% occlusion in the mid to distal segment with reconstitution of third obtuse marginal branch from l eft to left collaterals. The second obtuse marginal branch which is small to medium caliber vessel s howed 50% stenosis in the proximal segment. d. The right coronary artery was a l nondominant vessel arising from the right sinus of Valsalva rhonda t showed 30% stenosis in the proximal segment. INTERVENTION Review of prior films from 2018 showed that patient had 80 to 90% stenosis in the mid to distal segme nt of left circumflex artery that appeared to have progressed to complete occlusion. Even though ang iographically this lesion nuclear chronic total occlusion, since patient was having frequent nonsusta ined ventricular tachycardia, we decided to attempt intervening on this lesion. The left main foster ry artery was engaged with a 6 Mauritian XB 3.5 guide catheter. Several attempts to cross the lesion us ing 0.014 inch Treatful pro-water guidewire even with backup support with a 2.5 x 12 mm Euphora balloon very unsuccessful due to chronic nature of the lesion and unfavorable anatomy with 2 side branches ta viktor off right at the occlusion. Subsequently, with the help of backup support with the same balloon , the lesion was crossed with a 0.014 inch medical pro 3.0 guide 5. The lesion was dilated initially with 2.5 x 12 mm Euphora balloon but since it was melon seeding, we dilated it with a 2.5 x 20 mm Eu phora balloon. Follow-up angiography showed that the guidewire might have been subintimal. Hence we decided not to stent the lesion. Patient was chest pain-free and hemodynamically stable and complet ion angiography showed the third obtuse marginal branch filling via collaterals. Patient tolerated t he procedure well. Hemostasis was achieved using TR band. There were no immediate complications. JUICE Flow JUICE Flow (Pre-Intervention): JUICE-0 JUICE Flow (Post-Intervention): JUICE-1 Conclusion 1. Severe single-vessel coronary disease, chronic total occlusion involving the mid to distal segmen t of the left circumflex artery. 2. PTCA to the left circumflex artery. 3. Severe left ventricular systolic dysfunction with ejection fraction estimated at 25%. Recommendations Patient's non-STEMI is most likely type II/demand ischemia since the occlusion in the left circumflex artery is chronic. Optimization of medical therapy for coronary artery disease and nonischemic cardiomyopathy. Patient has recurrent NSVT. His LFTs are slightly elevated. Consider antiarrhythmic therapy with am iodarone with close monitoring of LFTs versus mexiletine or referral to EP for further recommendation s. Consider upgrading patient's pacemaker to AICD. Signed by : Irvin Sadler, Electronically Approved : 05/14/2020 14:45:57
[2020-05-14] MEDS: IV 1/2 NORMAL SALINE 1,000 ML IV SCH (14:50)
--- NOTE | 2020-05-14 16:34 | PDOC ---
PROGRESS NOTES Chief Complaint Chief Complaint chest pain, unstable angina, heparin gtt, NSTEMI cardiology consult f/u enzymes History of Present Illness History of Present Illness cardiac cath today for NSTEMI, plan DC soon if no intervention needed, Vitals Vitals Vital Signs Date Time Temp Pulse Resp B/P (MAP) Pulse Ox O2 Delivery O2 Flow Rate FiO2 05/14/20 15:00 96.5 74 18 122/77 (92) 98 Room Air 96.5 05/14/20 14:25 2.0 Physical Exam General: Alert, Oriented X3, No acute distress Heart: Regular rate Lungs: Clear Abdomen: Soft Extremities: No edema Skin: No significant lesion Labs LABS Laboratory Tests Test 05/14/20 06:50 Heparin Anti-Xa Act, Unfractionated 0.36 IU/mL (0.30-0.70) Assessment and Plan Assessmemt and Plan Problems Medical Problems: (1) Transaminitis Status: Acute Comment Review of Relevant I have reviewed the following items lashon (where applicable) has been applied. Labs Laboratory Tests Test 05/12/20 20:52 05/13/20 04:15 05/13/20 13:00 05/14/20 06:50 Heparin Anti-Xa Act, Unfractionated 0.15 IU/mL (0.30-0.70) 0.33 IU/mL (0.30-0.70) 0.38 IU/mL (0.30-0.70) 0.36 IU/mL (0.30-0.70) Troponin I Quantitative 0.066 ng/mL (0.000-0.055) Laboratory Tests Test 05/14/20 06:50 Heparin Anti-Xa Act, Unfractionated 0.36 IU/mL (0.30-0.70) Medications Current Medications Iohexol (Omnipaque 350 Mg/ml) 100 ml 1X ONCE IV Last administered on 05/11/20at 21:07; Start 05/11/20 at 21:00; Stop 05/11/20 at 21:01; Status DC Iohexol (Omnipaque 350 Mg/ml) 100 ml STK-MED ONCE .ROUTE ; Start 05/11/20 at 20:38; Stop 05/11/20 at 20:39; Status DC Ondansetron HCl (Zofran) 4 mg PRN Q8HRS PRN IV NAUSEA/VOMITING 1ST CHOICE; Start 05/12/20 at 00:15; Stop 05/13/20 at 00:14; Status DC Morphine Sulfate (Morphine Sulfate) 2 mg PRN Q2HR PRN IV SEVERE PAIN 7-10; Start 05/12/20 at 00:15; Stop 05/13/20 at 00:14; Status DC Aspirin (Jennifer Aspirin) 325 mg 1X ONCE PO Last administered on 05/12/20 03:14; Start 05/12/20 at 03:00; Stop 05/12/20 at 03:01; Status DC Aspirin (Ecotrin) 81 mg DAILY PO Last administered on 05/14/20 08:21; Start 05/12/20 at 09:30 Metoprolol Tartrate (Lopressor) 25 mg BID PO Last administered on 05/12/20at 1 3:16; Start 05/12/20 at 09:30; Stop 05/12/20 at 16:08; Status DC Simvastatin (Zocor) 10 mg QHS PO Last administered on 05/12/20at 13:14; Start 05/12/20 at 09:30; Stop 05/12/20 at 16:08; Status DC Ceftriaxone Sodium (Rocephin) 1 gm Q24H IVP Last administered on 05/14/20at 14:41; Start 05/12/20 at 12:00 Azithromycin 250 ml @ 250 mls/hr 1X ONCE IV ; Start 05/12/20 at 12:00; Stop 05/12/20 at 12:59; Status Cancel Azithromycin 500 mg/Sodium Chloride 250 ml @ 250 mls/hr 1X ONCE IV Last administered on 05/12/20at 13:14; Start 05/12/20 at 12:30; Stop 05/12/20 at 13:29; Status DC Heparin Sodium/ Dextrose 250 ml @ 8.3 mls/hr CONT PRN IV PER PROTOCOL Last administered on 05/13/20at 16:07; Start 05/12/20 at 14:00 Heparin Sodium (Porcine) (Heparin Sodium) 1,750 unit PRN Q6HRS PRN IV FOR UFH LEVEL LESS THAN 0.2 Last administered on 05/12/20at 22:29; Start 05/12/20 at 14:00 Lactobacillus Rhamnosus (Culturelle) 1 cap BID PO Last administered on 05/14/20at 08:20; Start 05/12/20 at 21:00 Atorvastatin Calcium (Lipitor) 40 mg HS PO Last administered on 05/13/20 21:05; Start 05/12/20 at 21:00 Latanoprost (Xalatan) 1 drop HS OU Last administered on 05/13/20at 21:05; Start 05/12/20 at 21:00 Lisinopril (Prinivil) 10 mg DAILY PO Last administered on 05/14/20 08:20; Start 05/12/20 at 16:15 Nicotine (Nicoderm Cq 21mg) 1 patch DAILY TD Last administered on 05/14/20 08:21; Start 05/12/20 at 16:30 Timolol Maleate (Timoptic 0.5% Oph) 1 drop BID OU Last administered on 05/14/20at 08:22; Start 05/12/20 at 21:00 Non-Formulary Medication (Brinzolamide/ Brimonid Tart (Simbrinza 1%-0.2% Eye Drops)) 1 ml BID OU Last administered on 05/14/20at 08:22; Start 05/12/20 at 21:00 Vitamin D (Vitamin D3) 2,000 unit DAILY PO Last administered on 05/14/20at 08:20; Start 05/13/20 at 09:00 Metoprolol Succinate (Toprol Xl) 100 mg DAILY PO Last administered on 05/14/20at 08:21; Start 05/12/20 at 16:15 Fentanyl Citrate (Fentanyl 2ml Vial) 100 mcg STK-MED ONCE .ROUTE ; Start 05/14/20 at 12:34; Stop 05/14/20 at 12:35; Status DC Midazolam HCl (Versed) 5 mg STK-MED ONCE .ROUTE ; Start 05/14/20 at 12:35; Stop 05/14/20 at 12:35; Status DC Heparin Sodium (Porcine) (Heparin Sodium) 10,000 unit STK-MED ONCE .ROUTE ; St art 05/14/20 at 12:35; Stop 05/14/20 at 12:35; Status DC Verapamil HCl (Verapamil) 5 mg STK-MED ONCE .ROUTE ; Start 05/14/20 at 12:35; Stop 05/14/20 at 12:35; Status DC Nitroglycerin (Nitroglycerin) 200 mcg STK-MED ONCE .ROUTE ; Start 05/14/20 at 12:35; Stop 05/14/20 at 12:35; Status DC Lidocaine HCl (Xylocaine-Mpf 1% 2ml Vial) 2 ml STK-MED ONCE .ROUTE ; Start 05/14/20 at 12:40; Stop 05/14/20 at 12:40; Status DC Iohexol (Omnipaque 300 Mg/ml) 100 ml STK-MED ONCE .ROUTE ; Start 05/14/20 at 12:40; Stop 05/14/20 at 12:41; Status DC Lidocaine HCl (Xylocaine-Mpf 1% 2ml Vial) 2 ml STK-MED ONCE .ROUTE ; Start 05/14/20 at 12:43; Stop 05/14/20 at 12:43; Status DC Heparin Sodium/ Sodium Chloride 1,000 ml @ As Directed STK-MED ONCE .ROUTE ; Start 05/14/20 at 12:43; Stop 05/14/20 at 12:43; Status DC Nitroglycerin (Nitroglycerin) 200 mcg 1X ONCE IART Last administered on 05/14/20at 14:24; Start 05/14/20 at 13:30; Stop 05/14/20 at 13:31; Status DC Verapamil HCl (Verapamil) 2.5 mg 1X ONCE IART Last administered on 05/14/20at 14:25; Start 05/14/20 at 13:30; Stop 05/14/20 at 13:31; Status DC Heparin Sodium (Porcine) (Heparin Sodium) 2,500 unit 1X ONCE IART Last administered on 05/14/20at 14:26; Start 05/14/20 at 13:30; Stop 05/14/20 at 13:31; Status DC Heparin Sodium/ Sodium Chloride (HEPARIN for ARTERIAL LINE FLUSH) 1,000 unit 1X ONCE IART Last administered on 05/14/20at 14:23; Start 05/14/20 at 13:30; Stop 05/14/20 at 13:31; Status DC Heparin Sodium/ Sodium Chloride (HEPARIN for ARTERIAL LINE FLUSH) 1,000 unit 1X ONCE IART Last administered on 05/14/20at 14:24; Start 05/14/20 at 13:30; Stop 05/14/20 at 13:31; Status DC Midazolam HCl (Versed) 5 mg 1X ONCE IV Last administered on 05/14/20at 14:25; Start 05/14/20 at 13:30; Stop 05/14/20 at 13:31; Status DC Fentanyl Citrate (Fentanyl 2ml Vial) 100 mcg 1X ONCE IV Last administered on 05/14/20at 14:25; Start 05/14/20 at 13:30; Stop 05/14/20 at 13:31; Status DC Iohexol (Omnipaque 300 Mg/ml) 100 ml 1X ONCE IART Last administered on 05/14/20at 14:23; Start 05/14/20 at 13:30; Stop 05/14/20 at 13:31; Status DC Lidocaine HCl (Xylocaine-Mpf 1% 2ml Vial) 2 ml 1X ONCE INJ Last administered on 05/14/20at 14:24; Start 05/14/20 at 13:30; Stop 05/14/20 at 13:31; Status DC Bivalirudin (Angiomax) 250 mg STK-MED ONCE IV ; Start 05/14/20 at 13:25; Stop 05/14/20 at 13:26; Status DC Bivalirudin (Angiomax) 250 mg 1X ONCE IV Last administered on 05/14/20at 14:24; Start 05/14/20 at 13:45; Stop 05/14/20 at 13:46; Status DC Iodixanol (Visipaque 320) 100 ml STK-MED ONCE .ROUTE ; Start 05/14/20 at 14:01; Stop 05/14/20 at 14:01; Status DC Sodium Chloride (Normal Saline Flush) 3 ml QSHIFT PRN IV AFTER MEDS AND BLOOD DRAWS; Start 05/14/20 at 14:30 Sodium Chloride 1,000 ml @ 75 mls/hr [id number] IV Last administered on 05/14/20at 14:50; Start 05/14/20 at 14:17 Acetaminophen (Tylenol) 650 mg PRN Q6HRS PRN PO MILD PAIN / TEMP > 100.3'F; Start 05/14/20 at 14:30 Active Scripts Active Aspir-Low (Aspirin) 81 Mg Tablet.dr 1 Tab PO DAILY Reported Atorvastatin Calcium 40 Mg Tablet 40 Mg PO HS Simbrinza 1%-0.2% Eye Drops (Brinzolamide/Brimonid Tart) 8 Ml Drops.susp 8 Ml OP BID NICODERM CQ 21mg (Nicotine) 1 Each Patch.td24 1 Patch TP DAILY Latanoprost 2.5 Ml Drops 1 Drop OP HS Timoptic 0.5% (Timolol Maleate) 10 Ml Drops 1 Drop EACHEYE BID 30 Days Sildenafil (Sildenafil Citrate) 20 Mg Tablet 50 Mg PO PRN PRN Metoprolol Succinate ( Xl ) (Metoprolol Succinate) 200 Mg Tab.er.24h 100 Mg PO DAILY Lisinopril 10 Mg Tablet 10 Mg PO DAILY D3-50 (Cholecalciferol (Vitamin D3)) 50,000 Unit Capsule 2,000 Unit PO DAILY Vitals/I & O Vital Sign - Last 24 Hours 05/13/20 05/13/20 05/13/20 05/14/20 19:24 19:42 22:45 03:43 Temp 98.5 98.4 97.5 98.5 98.4 97.5 Pulse 71 80 81 Resp 16 16 16 B/P (MAP) 115/78 (90) 116/80 (92) 120/86 (97) Pulse Ox 97 97 99 O2 Delivery Room Air Room Air Room Air Room Air 05/14/20 05/14/20 05/14/20 05/14/20 07:00 08:00 08:20 08:21 Temp 97.9 97.9 Pulse 78 81 81 Resp 18 B/P (MAP) 118/76 (90) 120/86 120/86 Pulse Ox 98 O2 Delivery Room Air Room Air O2 Flow Rate 2.0 05/14/20 05/14/20 05/14/20 05/14/20 11:00 14:18 14:25 14:25 Temp 98.4 98.4 Pulse 73 67 69 Resp 18 20 20 B/P (MAP) 112/70 (84) 122/79 Pulse Ox 97 99 99 O2 Delivery Room Air Nasal Cannula Nasal Cannula O2 Flow Rate 2.0 2.0 05/14/20 15:00 Temp 96.5 96.5 Pulse 74 Resp 18 B/P (MAP) 122/77 (92) Pulse Ox 98 O2 Delivery Room Air Intake and Output 05/13/20 05/13/20 05/14/20 15:00 23:00 07:00 Intake Total 720 ml 840 ml Output Total 300 ml 675 ml Balance 720 ml 540 ml -675 ml Justicifation of Admission Dx: Justifications for Admission: Justification of Admission Dx: Yes Angina: Symp at Rest BRYAN JACOBS MD May 14, 2020 16:34
[2020-05-14] MEDS: ATORVASTATIN CALCIUM 40 MG TABLET. PO SCH (22:40)
[2020-05-14] MEDS: LATANOPROST 0.005% OPHTH SOLUTION 2.5ML BOTTLE. OU SCH (22:43)
[2020-05-15 03:00] VITALS: BP 124/78
[2020-05-15] MEDS: IV 1/2 NORMAL SALINE 1,000 ML IV SCH (03:37)
[2020-05-15 07:00] VITALS: BP 131/85
[2020-05-15] MEDS: CHOLECALCIFEROL (VITAMIN D3) 1,000 UNIT TABLET PO SCH (08:17)
[2020-05-15] MEDS: ASPIRIN ENTERIC COATED 81 MG TABLET.DR. PO SCH (08:17)
[2020-05-15] MEDS: LACTOBACILLUS RHAMNOSUS GG 1 CAPSULE. PO SCH ×2 (08:17→20:33)
[2020-05-15] MEDS: NICOTINE 21MG PATCH. TD SCH (08:17)
[2020-05-15] MEDS: METOPROLOL SUCC 24HR ER 100 MG TAB.ER.24H. PO SCH (08:18)
[2020-05-15] MEDS: LISINOPRIL 10 MG TABLET PO SCH (08:20)
[2020-05-15] MEDS: TIMOLOL 0.5% OPHTH SOLUTION 5ML BOTTLE. OU SCH ×2 (08:21→20:34)
[2020-05-15] MEDS: BRIMONID TART OU SCH ×2 (08:21→20:34)
[2020-05-15] MEDS: BRINZOLAMIDE OU SCH ×2 (08:21→20:34)
[2020-05-15 11:06] VITALS: BP 105/77
--- NOTE | 2020-05-15 11:33 | CARD ---
MR#: [id number] Date of Study: 05/15/2020 Ordering Physician: IRVIN GORDILLO, Referring Physician: IRVIN GORDILLO, Tech: Helena Copeland APPROVED REPORT EXAM: Two-dimensional and M-mode echocardiogram with Doppler and color Doppler. Other Information HR: 73bpm INDICATION Chest Pain Non STEMI Surgery/Intervention Pacemaker: Date: 2017 RISK FACTORS Hypertension Hyperlipidemia Diabetes 2D DIMENSIONS Left Atrium(2D)3.4 (1.6-4.0cm)IVSd1.2 (0.7-1.1cm) Aortic Root(2D)3.4 (2.0-3.7cm)LVDd5.9 (3.9-5.9cm) LVOT Diameter2.2 (1.8-2.4cm)PWd1.2 (0.7-1.1cm) LVDs4.6 (2.5-4.0cm)FS (%) 21.6 % SV74.4 mlLVEF(%)43.1 (>50%) Aortic Valve AoV Peak Isai.124.4cm/sAoV VTI21.2cm AO Peak GR.6.2mmHgLVOT Peak Isai.76.5cm/s LVOT VTI 14.01cmAO Mean GR.4mmHg CHUY (VMAX)1.63ur0WTH (VTI)2.60cm2 AI P 1/2 [id number] Mitral Valve MV E Slpwdadb62.7cm/sMV DECEL [id number] MV A Aewwkdqa73.5cm/sMV E Mean Gr.1mmHg MV XQE43ktW/A Ratio0.7 MVA (PHT)2.91cm2 TDI E/Lateral E'9.3E/Medial E'6.6 Pulmonary Valve PV Peak Nwmmipaf08.6cm/sPV Peak Grad.2mmHg Tricuspid Valve TR P. Igrpjghw062ei/sRAP [id number] TR Peak Gr.41neFtAIQX68heDf Pulmonary Vein S1 Jwrnilmj17.3cm/sD2 Sfdjnfvo25.8cm/s PVa rojqbmyv195vlmr LEFT VENTRICLE The left ventricle is normal size. There is borderline to mild concentric left ventricular hypertroph y. The left ventricular systolic function is mildly decreased. EF 45% The basal to mid inferior wall, basal lateral wall is severely hypokinetic. Remainder of the LV is grossly normal. Transmitral Doppl er flow pattern is Grade I-abnormal relaxation pattern. RIGHT VENTRICLE The right ventricle is normal size. There is normal right ventricular wall thickness. The right ventr icular systolic function is normal. There is a pacemaker lead in the right ventricle. ATRIA The left atrium size is normal. The right atrium size is normal. The interatrial septum is intact wit h no evidence for an atrial septal defect or patent foramen ovale as noted on 2-D or Doppler imaging. AORTIC VALVE The aortic valve is thickened but opens well. Doppler and Color Flow revealed trace to mild aortic re gurgitation. Calculated aortic valve area is 2.57 cm2 with maximum pressure gradient of 7 mmHg and me an pressure gradient of 5 mmHg. There is no significant aortic valvular stenosis. MITRAL VALVE The mitral valve is normal in structure and function. There is no evidence of mitral valve prolapse. There is no mitral valve stenosis. Doppler and Color-flow revealed trace mitral regurgitation. TRICUSPID VALVE The tricuspid valve is normal in structure and function. Doppler and Color Flow revealed trace tricus pid regurgitation with an estimated PAP of 35 mmHg. There is no tricuspid valve stenosis. PULMONIC VALVE The pulmonic valve is not well visualized. Doppler and Color Flow revealed no pulmonic valvular regur gitation. There is no pulmonic valvular stenosis. GREAT VESSELS The aortic root is normal in size. The IVC is normal in size and collapses >50% with inspiration. PERICARDIAL EFFUSION There is no evidence of significant pericardial effusion. Critical Notification Critical Value: No <Conclusion> The left ventricular systolic function is mildly decreased. EF 45% The basal to mid inferior wall, basal lateral wall is severely hypokinetic. Remainder of the LV is gr ossly normal. There is a pacemaker lead in the right ventricle. Signed by : Lasha Andrews, Electronically Approved : 05/15/2020 11:33:30
[2020-05-15] MEDS: cefTRIAXone IV Push 1 GM VIAL. IVP SCH (12:00)
--- NOTE | 2020-05-15 14:24 | NUR ---
SS following up with discharge planning. SS reviewed pt chart and discussed with pt RN. Pt is from home and is currently on room air. Pt is on IV Rocephin. Pt had heat cath on 05/14/2020. SS will continue to follow for discharge planning.
[2020-05-15 14:47] VITALS: BP 121/78
--- NOTE | 2020-05-15 15:52 | EKG ---
[facility] [address] [place] [address] Test Date: 2020-05-11 Test Time: 18:59:06 Pat Name: DMITRY SMALLS Department: Room: Gender: M Medical Records Field Technician: : 1955 Requested By: OUMAR RATLIFF Order Number: [id number] Reading MD: Measurements Intervals [place] Rate: 101 P: 31 [place]: 168 QRS: 74 QRSD: 136 T: 53 QT: 382 QTc: 496 Interpretive Statements SINUS TACHYCARDIA COMPLEX(ES) WITH ABERRANT INTRAVENTRICULAR CONDUCTION RIGHT BUNDLE BRANCH BLOCK QRS(T) CONTOUR ABNORMALITY CONSISTENT WITH INFERIOR INFARCT PROBABLY OLD ABNORMAL ECG RI6.02 No previous ECG available for comparison
[2020-05-15 19:45] VITALS: BP 141/84
[2020-05-15] MEDS: ATORVASTATIN CALCIUM 40 MG TABLET. PO SCH (20:33)
[2020-05-15] MEDS: LATANOPROST 0.005% OPHTH SOLUTION 2.5ML BOTTLE. OU SCH (20:34)
[2020-05-15 23:30] VITALS: BP 120/66
[2020-05-16 03:20] VITALS: BP 126/70
[2020-05-16 07:00] VITALS: BP 146/69
[2020-05-16] MEDS: LISINOPRIL 10 MG TABLET PO SCH (08:40)
[2020-05-16] MEDS: LACTOBACILLUS RHAMNOSUS GG 1 CAPSULE. PO SCH (08:40)
[2020-05-16] MEDS: ASPIRIN ENTERIC COATED 81 MG TABLET.DR. PO SCH (08:40)
[2020-05-16] MEDS: CHOLECALCIFEROL (VITAMIN D3) 1,000 UNIT TABLET PO SCH (08:40)
[2020-05-16] MEDS: METOPROLOL SUCC 24HR ER 100 MG TAB.ER.24H. PO SCH (08:40)
[2020-05-16] MEDS: NICOTINE 21MG PATCH. TD SCH (08:41)
[2020-05-16] MEDS: TIMOLOL 0.5% OPHTH SOLUTION 5ML BOTTLE. OU SCH (08:53)
[2020-05-16] MEDS: BRINZOLAMIDE OU SCH (08:55)
[2020-05-16] MEDS: BRIMONID TART OU SCH (08:55)
--- NOTE | 2020-05-16 09:08 | PDOC ---
PROGRESS NOTES Chief Complaint Chief Complaint late entry, PT seen 7.6, then computer went down chest pain, unstable angina, heparin gtt, NSTEMI cardiology consult f/u enzymes History of Present Illness History of Present Illness cardiac cath today for NSTEMI, plan DC soon if no intervention needed, Vitals Vitals Vital Signs Date Time Temp Pulse Resp B/P (MAP) Pulse Ox O2 Delivery O2 Flow Rate FiO2 05/16/20 08:40 67 146/69 05/16/20 07:00 97.9 18 98 Room Air 97.9 05/15/20 14:47 2.0 Physical Exam General: Alert, Oriented X3, No acute distress Heart: Regular rate Lungs: Clear Abdomen: Soft Extremities: No edema Skin: No significant lesion Assessment and Plan Assessmemt and Plan Problems Medical Problems: (1) Transaminitis Status: Acute Comment Review of Relevant I have reviewed the following items lashon (where applicable) has been applied. Medications Current Medications Iohexol (Omnipaque 350 Mg/ml) 100 ml 1X ONCE IV Last administered on 05/11/20at 21:07; Start 05/11/20 at 21:00; Stop 05/11/20 at 21:01; Status DC Iohexol (Omnipaque 350 Mg/ml) 100 ml STK-MED ONCE .ROUTE ; Start 05/11/20 at 20:38; Stop 05/11/20 at 20:39; Status DC Ondansetron HCl (Zofran) 4 mg PRN Q8HRS PRN IV NAUSEA/VOMITING 1ST CHOICE; Start 05/12/20 at 00:15; Stop 05/13/20 at 00:14; Status DC Morphine Sulfate (Morphine Sulfate) 2 mg PRN Q2HR PRN IV SEVERE PAIN 7-10; Start 05/12/20 at 00:15; Stop 05/13/20 at 00:14; Status DC Aspirin (Jennifer Aspirin) 325 mg 1X ONCE PO Last administered on 05/12/20at 03:14; Start 05/12/20 at 03:00; Stop 05/12/20 at 03:01; Status DC Aspirin (Ecotrin) 81 mg DAILY PO Last administered on 05/16/20at 08:40; Start 05/12/20 at 09:30 Metoprolol Tartrate (Lopressor) 25 mg BID PO Last administered on 05/12/20at 13:16; Start 05/12/20 at 09:30; Stop 05/12/20 at 16:08; Status DC Simvastatin (Zocor) 10 mg QHS PO Last administered on 05/12/20 13:14; Start 05/12/20 at 09:30; Stop 05/12/20 at 16:08; Status DC Ceftriaxone Sodium (Rocephin) 1 gm Q24H IVP Last administered on 05/15/20 12:00; Start 05/12/20 at 12:00 Azithromycin 250 ml @ 250 mls/hr 1X ONCE IV ; Start 05/12/20 at 12:00; Stop 05/12/20 at 12:59; Status Cancel Azithromycin 500 mg/Sodium Chloride 250 ml @ 250 mls/hr 1X ONCE IV Last administered on 05/12/20 13:14; Start 05/12/20 at 12:30; Stop 05/12/20 at 13:29; Status DC Heparin Sodium/ Dextrose 250 ml @ 8.3 mls/hr CONT PRN IV PER PROTOCOL Last administered on 05/13/20 16:07; Start 05/12/20 at 14:00 Heparin Sodium (Porcine) (Heparin Sodium) 1,750 unit PRN Q6HRS PRN IV FOR UFH LEVEL LESS THAN 0.2 Last administered on 05/12/20 22:29; Start 05/12/20 at 14:00 Lactobacillus Rhamnosus (Culturelle) 1 cap BID PO Last administered on 05/16/20 08:40; Start 05/12/20 at 21:00 Atorvastatin Calcium (Lipitor) 40 mg HS PO Last administered on 05/15/20 20:33; Start 05/12/20 at 21:00 Latanoprost (Xalatan) 1 drop HS OU Last administered on 05/15/20 20:34; Start 05/12/20 at 21:00 Lisinopril (Prinivil) 10 mg DAILY PO Last administered on 05/16/20 08:40; Start 05/12/20 at 16:15 Nicotine (Nicoderm Cq 21mg) 1 patch DAILY TD Last administered on 05/16/20 08:41; Start 05/12/20 at 16:30 Timolol Maleate (Timoptic 0.5% [facility]) 1 drop BID OU Last administered on 7/7/20at 08:53; Start 05/12/20 at 21:00 Non-Formulary Medication (Brinzolamide/ Brimonid Tart (Simbrinza 1%-0.2% Eye Drops)) 1 ml BID OU Last administered on 05/16/20at 08:55; Start 05/12/20 at 21:00 Vitamin D (Vitamin D3) 2,000 unit DAILY PO Last administered on 05/16/20at 08:40; Start 05/13/20 at 09:00 Metoprolol Succinate (Toprol Xl) 100 mg DAILY PO Last administered on 05/16/20at 08:40; Start 05/12/20 at 16:15 Fentanyl Citrate (Fentanyl 2ml Vial) 100 mcg STK-MED ONCE .ROUTE ; Start 05/14/20 at 12:34; Stop 05/14/20 at 12:35; Status DC Midazolam HCl (Versed) 5 mg STK-MED ONCE .ROUTE ; Start 05/14/20 at 12:35; Stop 05/14/20 at 12:35; Status DC Heparin Sodium (Porcine) (Heparin Sodium) 10,000 unit STK-MED ONCE .ROUTE ; Start 05/14/20 at 12:35; Stop 05/14/20 at 12:35; Status DC Verapamil HCl (Verapamil) 5 mg STK-MED ONCE .ROUTE ; Start 05/14/20 at 12:35; Stop 05/14/20 at 12:35; Status DC Nitroglycerin (Nitroglycerin) 200 mcg STK-MED ONCE .ROUTE ; Start 05/14/20 at 12:35; Stop 05/14/20 at 12:35; Status DC Lidocaine HCl (Xylocaine-Mpf 1% 2ml Vial) 2 ml STK-MED ONCE .ROUTE ; Start 05/14/20 at 12:40; Stop 05/14/20 at 12:40; Status DC Iohexol (Omnipaque 300 Mg/ml) 100 ml STK-MED ONCE .ROUTE ; Start 05/14/20 at 12:40; Stop 05/14/20 at 12:41; Status DC Lidocaine HCl (Xylocaine-Mpf 1% 2ml Vial) 2 ml STK-MED ONCE .ROUTE ; Start 05/14/20 at 12:43; Stop 05/14/20 at 12:43; Status DC Heparin Sodium/ Sodium Chloride 1,000 ml @ As Directed STK-MED ONCE .ROUTE ; Start 05/14/20 at 12:43; Stop 05/14/20 at 12:43; Status DC Nitroglycerin (Nitroglycerin) 200 mcg 1X ONCE IART Last administered on 05/14/20at 14:24; Start 05/14/20 at 13:30; Stop 05/14/20 at 13:31; Status DC Verapamil HCl (Verapamil) 2.5 mg 1X ONCE IART Last administered on 05/14/20at 14:25; Start 05/14/20 at 13:30; Stop 05/14/20 at 13:31; Status DC Heparin Sodium (Porcine) (Heparin Sodium) 2,500 unit 1X ONCE IART Last administered on 05/14/20at 14:26; Start 05/14/20 at 13:30; Stop 05/14/20 at 13:31; Status DC Heparin Sodium/ Sodium Chloride (HEPARIN for ARTERIAL LINE FLUSH) 1,000 unit 1X ONCE IART Last administered on 05/14/20at 14:23; Start 05/14/20 at 13:30; Stop 05/14/20 at 13:31; Status DC Heparin Sodium/ Sodium Chloride (HEPARIN for ARTERIAL LINE FLUSH) 1,000 unit 1X ONCE IART Last administered on 05/14/20at 14:24; Start 05/14/20 at 13:30; Stop 05/14/20 at 13:31; Status DC Midazolam HCl (Versed) 5 mg 1X ONCE IV Last administered on 05/14/20 14:25; Start 05/14/20 at 13:30; Stop 05/14/20 at 13:31; Status DC Fentanyl Citrate (Fentanyl 2ml Vial) 100 mcg 1X ONCE IV Last administered on 05/14/20 14:25; Start 05/14/20 at 13:30; Stop 05/14/20 at 13:31; Status DC Iohexol (Omnipaque 300 Mg/ml) 100 ml 1X ONCE IART Last administered on 05/14/20at 14:23; Start 05/14/20 at 13:30; Stop 05/14/20 at 13:31; Status DC Lidocaine HCl (Xylocaine-Mpf 1% 2ml Vial) 2 ml 1X ONCE INJ Last administered on 05/14/20at 14:24; Start 05/14/20 at 13:30; Stop 05/14/20 at 13:31; Status DC Bivalirudin (Angiomax) 250 mg STK-MED ONCE IV ; Start 05/14/20 at 13:25; Stop 05/14/20 at 13:26; Status DC Bivalirudin (Angiomax) 250 mg 1X ONCE IV Last administered on 05/14/20at 14:24; Start 05/14/20 at 13:45; Stop 05/14/20 at 13:46; Status DC Iodixanol (Visipaque 320) 100 ml STK-MED ONCE .ROUTE ; Start 05/14/20 at 14:01; Stop 05/14/20 at 14:01; Status DC Sodium Chloride (Normal Saline Flush) 3 ml QSHIFT PRN IV AFTER MEDS AND BLOOD DRAWS; Start 05/14/20 at 14:30 Sodium Chloride 1,000 ml @ 75 mls/hr [id number] IV Last administered on 05/14/20at 14:50; Start 05/14/20 at 14:17; Stop 05/15/20 at 17:15; Status DC Acetaminophen (Tylenol) 650 mg PRN Q6HRS PRN PO MILD PAIN / TEMP > 100.3'F; S tart 05/14/20 at 14:30 Active Scripts Active Aspir-Low (Aspirin) 81 Mg Tablet. 1 Tab PO DAILY Reported Atorvastatin Calcium 40 Mg Tablet 40 Mg PO HS Simbrinza 1%-0.2% Eye Drops (Brinzolamide/Brimonid Tart) 8 Ml Drops.susp 8 Ml OP BID NICODERM CQ 21mg (Nicotine) 1 Each Patch.td24 1 Patch TP DAILY Latanoprost 2.5 Ml Drops 1 Drop OP HS Timoptic 0.5% (Timolol Maleate) 10 Ml Drops 1 Drop EACHEYE BID 30 Days Sildenafil (Sildenafil Citrate) 20 Mg Tablet 50 Mg PO PRN PRN Metoprolol Succinate ( Xl ) (Metoprolol Succinate) 200 Mg Tab.er.24h 100 Mg PO DAILY Lisinopril 10 Mg Tablet 10 Mg PO DAILY D3-50 (Cholecalciferol (Vitamin D3)) 50,000 Unit Capsule 2,000 Unit PO DAILY Vitals/I & O Vital Sign - Last 24 Hours 05/15/20 05/15/20 05/15/2020 11:06 14:47 19:15 19:45 Temp 98.0 97.7 98.1 98.0 97.7 98.1 Pulse 78 71 67 Resp 18 18 18 B/P (MAP) 105/77 (86) 121/78 (92) 141/84 (103) Pulse Ox 99 99 99 O2 Delivery Room Air Room Air Room Air Room Air O2 Flow Rate 2.0 2.0 05/15/20 05/16/20 05/16/20 05/16/20 23:30 03:20 07:00 08:40 Temp 98.1 98.3 97.9 98.1 98.3 97.9 Pulse 74 79 67 67 Resp 18 18 18 B/P (MAP) 120/66 (84) 126/70 (88) 146/69 (94) 146/69 Pulse Ox 97 98 98 O2 Delivery Room Air Room Air Room Air 05/16/20 08:40 Pulse 67 B/P (MAP) 146/69 Intake and Output 05/15/20 05/15/20 05/16/20 15:00 23:00 07:00 Intake Total 800 ml 250 ml 720 ml Balance 800 ml 250 ml 720 ml Justicifation of Admission Dx: Justifications for Admission: Justification of Admission Dx: Yes Angina: Symp at Rest BRYAN JACOBS MD May 16, 2020 09:08
[2020-05-16 10:28] VITALS: BP 118/83
--- NOTE | 2020-05-16 11:27 | PDOC ---
PROGRESS NOTES Chief Complaint Chief Complaint 05/16. chest pain, unstable angina, heparin gtt, CAD to right also non ischemic cardiomyopathy cardiology consult f/u enzymes History of Present Illness History of Present Illness doing well medtronic eval, device may need adjusting, CV to see pt feels better, OK to DC, pending eval Vitals Vitals Vital Signs Date Time Temp Pulse Resp B/P (MAP) Pulse Ox O2 Delivery O2 Flow Rate FiO2 05/16/20 10:28 98.4 83 18 118/83 (95) 97 Room Air 98.4 05/15/20 14:47 2.0 Physical Exam General: Alert, Oriented X3, No acute distress Heart: Regular rate Lungs: Clear Abdomen: Soft Extremities: No edema Skin: No significant lesion Assessment and Plan Assessmemt and Plan Problems Medical Problems: (1) Transaminitis Status: Acute Comment Review of Relevant I have reviewed the following items lashon (where applicable) has been applied. Medications Current Medications Iohexol (Omnipaque 350 Mg/ml) 100 ml 1X ONCE IV Last administered on 05/11/20at 21:07; Start 05/11/20 at 21:00; Stop 05/11/20 at 21:01; Status DC Iohexol (Omnipaque 350 Mg/ml) 100 ml STK-MED ONCE .ROUTE ; Start 05/11/20 at 20:38; Stop 05/11/20 at 20:39; Status DC Ondansetron HCl (Zofran) 4 mg PRN Q8HRS PRN IV NAUSEA/VOMITING 1ST CHOICE; Start 05/12/20 at 00:15; Stop 05/13/20 at 00:14; Status DC Morphine Sulfate (Morphine Sulfate) 2 mg PRN Q2HR PRN IV SEVERE PAIN 7-10; Start 05/12/20 at 00:15; Stop 05/13/20 at 00:14; Status DC Aspirin (Jennifer Aspirin) 325 mg 1X ONCE PO Last administered on 05/12/20at 03:14; Start 05/12/20 at 03:00; Stop 05/12/20 at 03:01; Status DC Aspirin (Ecotrin) 81 mg DAILY PO Last administered on 05/16/20at 08:40; Start 05/12/20 at 09:30 Metoprolol Tartrate (Lopressor) 25 mg BID PO Last administered on 05/12/20at 13:16; Start 05/12/20 at 09:30; Stop 05/12/20 at 16:08; Status DC Simvastatin (Zocor) 10 mg QHS PO Last administered on 05/12/20 13:14; Start 05/12/20 at 09:30; Stop 05/12/20 at 16:08; Status DC Ceftriaxone Sodium (Rocephin) 1 gm Q24H IVP Last administered on 05/15/20 12:00; Start 05/12/20 at 12:00 Azithromycin 250 ml @ 250 mls/hr 1X ONCE IV ; Start 05/12/20 at 12:00; Stop 05/12/20 at 12:59; Status Cancel Azithromycin 500 mg/Sodium Chloride 250 ml @ 250 mls/hr 1X ONCE IV Last administered on 05/12/20 13:14; Start 05/12/20 at 12:30; Stop 05/12/20 at 13:29; Status DC Heparin Sodium/ Dextrose 250 ml @ 8.3 mls/hr CONT PRN IV PER PROTOCOL Last administered on 05/13/20 16:07; Start 05/12/20 at 14:00 Heparin Sodium (Porcine) (Heparin Sodium) 1,750 unit PRN Q6HRS PRN IV FOR UFH LEVEL LESS THAN 0.2 Last administered on 05/12/20 22:29; Start 05/12/20 at 14:00 Lactobacillus Rhamnosus (Culturelle) 1 cap BID PO Last administered on 05/16/20 08:40; Start 05/12/20 at 21:00 Atorvastatin Calcium (Lipitor) 40 mg HS PO Last administered on 05/15/20 20:33; Start 05/12/20 at 21:00 Latanoprost (Xalatan) 1 drop HS OU Last administered on 05/15/20 20:34; Start 05/12/20 at 21:00 Lisinopril (Prinivil) 10 mg DAILY PO Last administered on 05/16/20 08:40; Start 05/12/20 at 16:15 Nicotine (Nicoderm Cq 21mg) 1 patch DAILY TD Last administered on 05/16/20 08:41; Start 05/12/20 at 16:30 Timolol Maleate (Timoptic 0.5% [facility]) 1 drop BID OU Last administered on 7/7/20at 08:53; Start 05/12/20 at 21:00 Non-Formulary Medication (Brinzolamide/ Brimonid Tart (Simbrinza 1%-0.2% Eye Drops)) 1 ml BID OU Last administered on 05/16/20at 08:55; Start 05/12/20 at 21:00 Vitamin D (Vitamin D3) 2,000 unit DAILY PO Last administered on 05/16/20at 08:40; Start 05/13/20 at 09:00 Metoprolol Succinate (Toprol Xl) 100 mg DAILY PO Last administered on 05/16/20at 08:40; Start 05/12/20 at 16:15 Fentanyl Citrate (Fentanyl 2ml Vial) 100 mcg STK-MED ONCE .ROUTE ; Start 05/14/20 at 12:34; Stop 05/14/20 at 12:35; Status DC Midazolam HCl (Versed) 5 mg STK-MED ONCE .ROUTE ; Start 05/14/20 at 12:35; Stop 05/14/20 at 12:35; Status DC Heparin Sodium (Porcine) (Heparin Sodium) 10,000 unit STK-MED ONCE .ROUTE ; Start 05/14/20 at 12:35; Stop 05/14/20 at 12:35; Status DC Verapamil HCl (Verapamil) 5 mg STK-MED ONCE .ROUTE ; Start 05/14/20 at 12:35; Stop 05/14/20 at 12:35; Status DC Nitroglycerin (Nitroglycerin) 200 mcg STK-MED ONCE .ROUTE ; Start 05/14/20 at 12:35; Stop 05/14/20 at 12:35; Status DC Lidocaine HCl (Xylocaine-Mpf 1% 2ml Vial) 2 ml STK-MED ONCE .ROUTE ; Start 05/14/20 at 12:40; Stop 05/14/20 at 12:40; Status DC Iohexol (Omnipaque 300 Mg/ml) 100 ml STK-MED ONCE .ROUTE ; Start 05/14/20 at 12:40; Stop 05/14/20 at 12:41; Status DC Lidocaine HCl (Xylocaine-Mpf 1% 2ml Vial) 2 ml STK-MED ONCE .ROUTE ; Start 05/14/20 at 12:43; Stop 05/14/20 at 12:43; Status DC Heparin Sodium/ Sodium Chloride 1,000 ml @ As Directed STK-MED ONCE .ROUTE ; Start 05/14/20 at 12:43; Stop 05/14/20 at 12:43; Status DC Nitroglycerin (Nitroglycerin) 200 mcg 1X ONCE IART Last administered on 05/14/20at 14:24; Start 05/14/20 at 13:30; Stop 05/14/20 at 13:31; Status DC Verapamil HCl (Verapamil) 2.5 mg 1X ONCE IART Last administered on 05/14/20at 14:25; Start 05/14/20 at 13:30; Stop 05/14/20 at 13:31; Status DC Heparin Sodium (Porcine) (Heparin Sodium) 2,500 unit 1X ONCE IART Last administered on 05/14/20at 14:26; Start 05/14/20 at 13:30; Stop 05/14/20 at 13:31; Status DC Heparin Sodium/ Sodium Chloride (HEPARIN for ARTERIAL LINE FLUSH) 1,000 unit 1X ONCE IART Last administered on 05/14/20at 14:23; Start 05/14/20 at 13:30; Stop 05/14/20 at 13:31; Status DC Heparin Sodium/ Sodium Chloride (HEPARIN for ARTERIAL LINE FLUSH) 1,000 unit 1X ONCE IART Last administered on 05/14/20at 14:24; Start 05/14/20 at 13:30; Stop 05/14/20 at 13:31; Status DC Midazolam HCl (Versed) 5 mg 1X ONCE IV Last administered on 05/14/20at 14:25; Start 05/14/20 at 13:30; Stop 05/14/20 at 13:31; Status DC Fentanyl Citrate (Fentanyl 2ml Vial) 100 mcg 1X ONCE IV Last administered on 05/14/20 14:25; Start 05/14/20 at 13:30; Stop 05/14/20 at 13:31; Status DC Iohexol (Omnipaque 300 Mg/ml) 100 ml 1X ONCE IART Last administered on 05/14/20at 14:23; Start 05/14/20 at 13:30; Stop 05/14/20 at 13:31; Status DC Lidocaine HCl (Xylocaine-Mpf 1% 2ml Vial) 2 ml 1X ONCE INJ Last administered on 05/14/20at 14:24; Start 05/14/20 at 13:30; Stop 05/14/20 at 13:31; Status DC Bivalirudin (Angiomax) 250 mg STK-MED ONCE IV ; Start 05/14/20 at 13:25; Stop 05/14/20 at 13:26; Status DC Bivalirudin (Angiomax) 250 mg 1X ONCE IV Last administered on 05/14/20at 14:24; Start 05/14/20 at 13:45; Stop 05/14/20 at 13:46; Status DC Iodixanol (Visipaque 320) 100 ml STK-MED ONCE .ROUTE ; Start 05/14/20 at 14:01; Stop 05/14/20 at 14:01; Status DC Sodium Chloride (Normal Saline Flush) 3 ml QSHIFT PRN IV AFTER MEDS AND BLOOD DRAWS; Start 05/14/20 at 14:30 Sodium Chloride 1,000 ml @ 75 mls/hr [id number] IV Last administered on 05/14/20at 14:50; Start 05/14/20 at 14:17; Stop 05/15/20 at 17:15; Status DC Acetaminophen (Tylenol) 650 mg PRN Q6HRS PRN PO MILD PAIN / TEMP > 100.3'F; Start 05/14/20 at 14:30 Active Scripts Active Aspir-Low (Aspirin) 81 Mg Tablet.dr 1 Tab PO DAILY Reported Atorvastatin Calcium 40 Mg Tablet 40 Mg PO HS Simbrinza 1%-0.2% Eye Drops (Brinzolamide/Brimonid Tart) 8 Ml Drops.susp 8 Ml OP BID NICODERM CQ 21mg (Nicotine) 1 Each Patch.td24 1 Patch TP DAILY Latanoprost 2.5 Ml Drops 1 Drop OP HS Timoptic 0.5% (Timolol Maleate) 10 Ml Drops 1 Drop EACHEYE BID 30 Days Sildenafil (Sildenafil Citrate) 20 Mg Tablet 50 Mg PO PRN PRN Metoprolol Succinate ( Xl ) (Metoprolol Succinate) 200 Mg Tab.er.24h 100 Mg PO DAILY Lisinopril 10 Mg Tablet 10 Mg PO DAILY D3-50 (Cholecalciferol (Vitamin D3)) 50,000 Unit Capsule 2,000 Unit PO DAILY Vitals/I & O Vital Sign - Last 24 Hours 05/15/20 05/15/20 05/15/2020 14:47 19:15 19:45 23:30 Temp 97.7 98.1 98.1 97.7 98.1 98.1 Pulse 71 67 74 Resp 18 18 18 B/P (MAP) 121/78 (92) 141/84 (103) 120/66 (84) Pulse Ox 99 99 97 O2 Delivery Room Air Room Air Room Air Room Air O2 Flow Rate 2.0 05/16/20 05/16/20 05/16/20 05/16/20 03:20 07:00 08:40 08:40 Temp 98.3 97.9 98.3 97.9 Pulse 79 67 67 67 Resp 18 18 B/P (MAP) 126/70 (88) 146/69 (94) 146/69 146/69 Pulse Ox 98 98 O2 Delivery Room Air Room Air 05/16/20 10:28 Temp 98.4 98.4 Pulse 83 Resp 18 B/P (MAP) 118/83 (95) Pulse Ox 97 O2 Delivery Room Air Intake and Output 05/15/20 05/15/20 05/16/20 15:00 23:00 07:00 Intake Total 800 ml 250 ml 720 ml Balance 800 ml 250 ml 720 ml Justicifation of Admission Dx: Justifications for Admission: Justification of Admission Dx: Yes Angina: Symp at Rest BRYAN JACOBS MD May 16, 2020 11:27
--- NOTE | 2020-05-16 12:12 | NUR ---
SS following up with discharge planning. SS reviewed pt chart and discussed with pt RN. Pt is currently on room air. Discharge order on the chart for home with self care. IV antibiotics being discontinued.
[2020-05-16] MEDS: cefTRIAXone IV Push 1 GM VIAL. IVP SCH (12:28)
[2020-05-16 13:14] LABS: ALBUMIN 3.4 g/dL (3.4-5.0); ALBUMIN/GLOBULIN RATIO 0.9 (1.0-1.7); CALCIUM 8.6 mg/dL (8.5-10.1); CREATININE 0.8 mg/dL (0.7-1.3); GFR 117.4; POTASSIUM 3.8 mmol/L (3.5-5.1); TOTAL BILIRUBIN 0.3 mg/dL (0.2-1.0); TOTAL PROTEIN 7.1 g/dL (6.4-8.2)
[2020-05-16 14:38] VITALS: BP 121/92
--- NOTE | 2020-05-16 15:18 | PDOC ---
KEYLA GERMAIN PLAYER SERVICES REPRESENTATIVE 05/16/20 1518: CARDIO Progress Notes Date and Time Date of Service 05/16/20 Time of Evaluation 1145 Subjective Subjective: No Chest Pain, No shortness of breath, No Palpitations Vitals Vitals Vital Signs Date Time Temp Pulse Resp B/P (MAP) Pulse Ox O2 Delivery O2 Flow Rate FiO2 05/16/20 14:38 98.3 71 18 121/92 (102) 100 Room Air 98.3 05/15/20 14:47 2.0 Weight Weight [ ] Input and Output Intake and Output Intake and Output 05/16/20 07:00 Intake Total 1770 ml Balance 1770 ml Intake Oral 1770 ml # Voids 3 # Bowel Movements 1 Laboratory Labs Laboratory Tests Test 05/16/20 12:40 Sodium Level 139 mmol/L (136-145) Potassium Level 3.8 mmol/L (3.5-5.1) Chloride Level 103 mmol/L (98-107) Carbon Dioxide Level 30 mmol/L (21-32) Anion Gap 6 (6-14) Blood Urea Nitrogen 4 mg/dL (8-26) Creatinine 0.8 mg/dL (0.7-1.3) Estimated GFR (Cockcroft-Gault) 117.4 BUN/Creatinine Ratio 5 (6-20) Glucose Level 98 mg/dL (70-99) Calcium Level 8.6 mg/dL (8.5-10.1) Total Bilirubin 0.3 mg/dL (0.2-1.0) Aspartate Amino Transf (AST/SGOT) 95 U/L (15-37) Alanine Aminotransferase (ALT/SGPT) 127 U/L (16-63) Alkaline Phosphatase 46 U/L (46-116) Total Protein 7.1 g/dL (6.4-8.2) Albumin 3.4 g/dL (3.4-5.0) Albumin/Globulin Ratio 0.9 (1.0-1.7) Physical Exam HEENT: Neck Supple W Full Motion Chest: Symmetric LUNGS: Clear to Auscultation Heart: S1S2, RRR Abdomen: Soft N/T Extremities: No Edema Neurology: alert, oriented, follow commands Assessment Assessment 1. Chest pain with typical features in setting of NSTEMI 2. CAD; cath with SECTION HOUSEKEEPER of mid to distal segment of the LCx. S/p PTCA to the LCx. 3. Mixed ischemic, NICM. Echo with improvement of LV function with an EF of 45% 4. SSS s/p PPM (Biotronik); device checked noted with episodes of NSVT since the 10 of April of his palpitations. 5. Hypertension ;controlled . 6. Hyperlipidemia; statin therapy 7. Elevated LFTs 8. H/o ETOH abuse Recommendations Antiarrhythmic therapy with Amiodarone; D/w primary supply chain technician; will decrease to 200mg and hold statin with liver disease. Will need close monitoring of liver function Continue HF optimization with Toprol and lisinopril Follow up with [place] supply chain technician upon discharge. Supportive care Justicifation of Admission Dx: Justifications for Admission: Justification of Admission Dx: Yes Angina: Symp at Rest DHIRAJ WYATT MD 05/16/20 [id number]: CARDIO Progress Notes Assessment Assessment Patient seen and examined CAD; cath with SECTION HOUSEKEEPER of mid to distal segment of the LCx. S/p PTCA to the LCx. No chest pain today. Continue aspirin and Plavix. 3Mixed ischemic, NICM. Echo with improvement of LV function with an EF of 45% SSS s/p PPM (Biotronik); device checked noted with episodes of NSVT since the 10 of April of his palpitations. Amiodarone today at 2200 mg. Will hold statin with liver disease. Will require monitoring of the patient's liver function. Hypertension ;controlled . Hyperlipidemia; holding statins as above. Elevated LFTs H/o ETOH abuse KEYLA GERMAIN APRN May 16, 2020 15:18 DHIRAJ WYATT MD May 16, 2020 16:29
[2020-05-16] MEDS ORDERED: AMIO200T4 PO (15:23)
--- NOTE | 2020-05-16 17:45 | NUR ---
Discharge Note: [facility] Discharge instructions and discharge home medications reviewed with Patient and a copy given. All questions have been answered and understanding verbalized. The following instructions and handouts were given: angioplasty, cardiac rehab Discontinued lines and drains: IV catheter removed intact. Tele monitor removed. Patient discharged to Home with Self care via wheelchair.
[2020-05-17] MEDS ORDERED: AMIODARONE HCL 200 MG TABLET. PO SCH ×2 (09:00)
--- NOTE | 2020-06-07 11:49 | PDOC3 ---
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 S/p PTCA to the LCx. Mixed ischemic, NICM. Echo with improvement of LV function with an EF of 45% SSS s/p PPM (Biotronik); device checked noted with episodes of NSVT since the 10 of April of his palpitations. Hypertension ;controlled . Hyperlipidemia; holding statins Elevated LFTs Problems Medical Problems: (1) Transaminitis Status: Acute Brief Hospital Course Allergies Allergies Coded Allergies Type Severity Reaction Last Updated Verified No Known Drug Allergies 03/30/16 No Brief Hospital Course Mr. 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 to aquatic laborer, findings listed above, medtronic eval done, CV eval Discharge Information Condition at Discharge: Improved Follow Up: Weeks Disposition/Orders: D/C to Home Scheduled Amiodarone Hcl (Amiodarone Hcl) 200 Mg Tablet, 1 TAB PO DAILY for antiarrhythmic for 30 Days, #30 Ref 1 Prescribed by: KELYA GERMAIN APRN on 05/16/20 1523 Aspirin (Aspir-Low) 81 Mg Tablet.dr, 1 TAB PO DAILY, #90 Ref 3 Prescribed by: JO OSBORNE MD on 07/22/18 1619 Last Action: Continued on 05/12/20 0924 by BYRAN JACOBS Brinzolamide/Brimonid Tart (Simbrinza 1%-0.2% Eye Drops) 8 Ml Drops.susp, 8 ML OP BID for Glaucoma, (Reported) Entered as Reported by: ESTEFANÍA SMITH RN on 05/12/201556 Last Action: Converted on 05/12/201605 by ESTEFANÍA SMITH RN Cholecalciferol (Vitamin D3) (D3-50) 50,000 Unit Capsule, 2,000 UNIT PO DAILY for vitamin d deficiency , (Reported) Entered as Reported by: ESTEFANÍA SMITH RN on 05/12/201556 Last Action: Converted on 05/12/201605 by ESTEFANÍA SMITH RN Latanoprost (Latanoprost) 2.5 Ml Drops, 1 DROP OP HS for Glaucoma, (Reported) Entered as Reported by: ESTEFANÍA SMITH RN on 05/12/201556 Last Action: Continued on 05/12/201605 by ESTEFANÍA SMITH RN Lisinopril (Lisinopril) 10 Mg Tablet, 10 MG PO DAILY for FOR HYPERTENSION, #30 Ref 0 (Reported) Entered as Reported by: ESTEFANÍA SMITH RN on 05/12/201556 Last Action: Continued on 05/12/201605 by ESTEFANÍA SMITH RN Metoprolol Succinate (Metoprolol Succinate ( Xl )) 200 Mg Tab.er.24h, 100 MG PO DAILY for FOR HYPERTENSION, #30 Ref 0 (Reported) Entered as Reported by: ESTEFANÍA SMITH RN on 05/12/201556 Last Action: Converted on 05/12/201605 by ESTEFANÍA SMITH RN Timolol Maleate 0.5% (Timoptic 0.5%) 10 Ml Drops, 1 DROP EACHEYE BID for Glaucoma for 30 Days, #5 Ref 0 (Reported) Entered as Reported by: ESTEFANÍA SMITH RN on 05/12/201556 Last Action: Continued on 05/12/201605 by ESTEFANÍA SMITH RN Scheduled PRN Sildenafil Citrate (Sildenafil) 20 Mg Tablet, 50 MG PO PRN PRN for ED, (Reported) Entered as Reported by: ESTEFANÍA SMITH RN on 05/12/201556 Last Action: New Order on 05/12/201556 by ESTEFANÍA SMITH RN Patient Instructions Patient Instructions > 30 minutes face to face Justicifation of Admission Dx: Justifications for Admission: Justification of Admission Dx: Yes Angina: Symp at Rest BRYAN JACOBS MD Jun 07, 2020 11:49
== END 2020-05-16 17:51 | disposition home or self-care (01) | DRG 250 ==
LOC: ER 18:51 → 2 SOUTH 05-12 00:46
PROVIDERS: ADMIT Internal Medicine; ATTEND Internal Medicine
PROC: 4B02XSZ Measurement of Cardiac Pacemaker, External Approach (ICD-10-PCS; 2020-05-13)
PROC: 02703ZZ Dilation of Coronary Artery, One Artery, Percutaneous Approach (ICD-10-PCS; principal; 2020-05-14)
PROC: 4A023N7 Measurement of Cardiac Sampling and Pressure, Left Heart, Percutaneous Approach (ICD-10-PCS; 2020-05-14)
PROC: B2151ZZ Fluoroscopy of Left Heart using Low Osmolar Contrast (ICD-10-PCS; 2020-05-14)
PROC: B2111ZZ Fluoroscopy of Multiple Coronary Arteries using Low Osmolar Contrast (ICD-10-PCS; 2020-05-14)
DX: I21.4 Non-ST elevation (NSTEMI) myocardial infarction (principal); I50.23 Acute on chronic systolic (congestive) heart failure; I42.8 Other cardiomyopathies; I47.2 Ventricular tachycardia; E78.5 Hyperlipidemia, unspecified; I10 Essential (primary) hypertension; I25.110 Atherosclerotic heart disease of native coronary artery with unstable angina pectoris; I49.5 Sick sinus syndrome; J40 Bronchitis, not specified as acute or chronic; K76.9 Liver disease, unspecified; Z79.02 Long term (current) use of antithrombotics/antiplatelets; Z79.82 Long term (current) use of aspirin; Z82.49 Family history of ischemic heart disease and other diseases of the circulatory system; Z87.891 Personal history of nicotine dependence; Z95.0 Presence of cardiac pacemaker; Z98.61 Coronary angioplasty status
CPT/HCPCS: 36415; 71045; 71275; 80048; 80053; 80076; 81001; 82550; 83690; 83735; 83880; 84443; 84484; 85025; 85379; 85520; 85610; 85730; 92920; 93005; 93306; 93458; 99152; 99153; C1725; C1769; C1887; C1892; J0456; J0583; J0696; J1644; J2250; J3010; J3490; J7050; Q9967; 99285-25; G0378; J7030

== ENCOUNTER 2021-01-25 19:47 | Inpatient (IN) | payer MEDICAID, MEDICARE ==
[~2021-01-25] VITALS: Ht 180.3 cm; Wt 69.0 kg
[~2021-01-25 19:47] MED LIST changes: +AMIO200T6 PO; +ATOR40TA59 PO; +BRIN8DRO OP; +CHOL500021 PO; +LATA2.5D3 OP; +LISI10TA16 PO; +METO200T46 PO; +NICO1PAT21 TP; +SILD20TA4 PO; +TIMO10DR5 EACHEYE
[2021-01-25 21:10] LABS: BASO % 1 % (0-3); EOS % 0 % (0-3); HEMATOCRIT 39.5 % (39.0-53.0); HEMOGLOBIN 13.5 g/dL (13.0-17.5); LYMPH % 35 % (24-48); MEAN CORPUSCULAR HEMOGLOBIN 35 pg (25-35); MEAN CORPUSCULAR HGB CONC 34 g/dL (31-37); MEAN CORPUSCULAR VOLUME 101 fL (79-100); MONO # 0.4 x10^3/uL (0.0-1.1); MONO % 8 % (0-9); NEUT # 3.2 x10^3/uL (1.8-7.7); NEUT % 56 % (31-73); PLATELET COUNT 183 x10^3/uL (140-400); RED BLOOD COUNT 3.92 x10^6/uL (4.30-5.70); RED CELL DISTRIBUTION WIDTH 14.2 % (11.5-14.5); WHITE BLOOD COUNT 5.7 x10^3/uL (4.0-11.0)
[2021-01-25 21:19] LABS: CALCIUM 8.9 mg/dL (8.5-10.1); CREATININE 0.8 mg/dL (0.7-1.3); GFR 117.4; POTASSIUM 4.1 mmol/L (3.5-5.1)
[2021-01-25 21:25] LABS: ALBUMIN 3.8 g/dL (3.4-5.0); MAGNESIUM 2.2 mg/dL (1.8-2.4); TOTAL BILIRUBIN 0.4 mg/dL (0.2-1.0); TOTAL PROTEIN 7.6 g/dL (6.4-8.2)
[2021-01-25 21:49] LABS: INFLUENZA A PATIENT NEGATIVE (NEGATIVE); INFLUENZA B PATIENT NEGATIVE (NEGATIVE)
--- NOTE | 2021-01-25 22:16 | EKG ---
[facility] [address] [place] [address] Test Date: 2021-01-25 Test Time: 20:34:23 Pat Name: DMITRY SMALLS Department: Room: Gender: M [employer]: : 1955 Requested By: MARIA G ALEJANDRE Order Number: [id number] Reading MD: Measurements Intervals [place] Rate: 81 P: 76 NM: 188 QRS: 66 QRSD: 140 T: 62 QT: 408 QTc: 474 Interpretive Statements SINUS RHYTHM RIGHT BUNDLE BRANCH BLOCK QRS(T) CONTOUR ABNORMALITY CONSISTENT WITH INFERIOR INFARCT PROBABLY OLD ABNORMAL ECG RI6.02 No previous ECG available for comparison
--- NOTE | 2021-01-25 22:23 | ED.ADGEN ---
Past Medical History Past Medical History: Hypertension Past Surgical History: Pacemaker, Other Additional Past Surgical Histo: SHOULDER Smoking Status: Current Every Day Smoker Additional Information: 1.5 PPD Alcohol Use: Heavy Drug Use: None General Adult EDM: Chief Complaint: MULTIPLE COMPLAINTS HPI: HPI: Patient is a 65 year old AA male who presents emergency department with complaints of shortness of breath, dizziness, fatigue, and nausea. Patient reports he was drinking a few beers on his couch at approximately 1700 this evening when he developed chest pain. Patient also reports that he lost his sense of smell today, and has had a headache. He denies any known exposure to COVID-19. Patient denies any diarrhea, abdominal pain, back pain, cough, fever, or body aches. He initially reported that his chest pain was a 7 out of 10 on the pain scale, he denies any alleviating or exacerbating factors. He denied any chest pain my evaluation. Review of Systems: Review of Systems: Complete ROS is negative unless otherwise noted in HPI. Current Medications: Current Medications Medications (Trade) Dose Ordered Sig/[facility] Start Time Stop Time Status Last Admin Dose Admin Aspirin (Jennifer Aspirin) 325 mg 1X ONCE 01/25/21 22:30 01/25/21 22:31 DC Allergies: Allergies: Allergies Coded Allergies Type Severity Reaction Last Updated Verified No Known Drug Allergies 03/30/16 No Physical Exam: PE: See Above Constitutional: Well developed, well nourished, no acute distress, non-toxic appearance. [] HENT: Normocephalic, atraumatic, bilateral external ears normal, nose normal. [] Eyes: PERRLA, EOMI, conjunctiva normal, no discharge. [] Neck: Normal range of motion, no stridor. [] Cardiovascular:Heart rate regular rhythm Lungs & Thorax: Respirations even and unlabored, no retractions, no respiratory distress Abdomen: soft, no tenderness Skin: Warm, dry, no erythema, no rash. [] Extremities: No cyanosis, ROM intact, no edema. [] Neurologic: Alert and oriented X 3, no focal deficits noted. [] Psychologic: Affect normal, judgement normal, mood normal. [] Current Patient Data: Labs: Laboratory Tests Test 01/25/21 20:50 01/25/21 21:25 White Blood Count 5.7 x10^3/uL (4.0-11.0) Red Blood Count 3.92 x10^6/uL (4.30-5.70) L Hemoglobin 13.5 g/dL (13.0-17.5) Hematocrit 39.5 % (39.0-53.0) Mean Corpuscular Volume 101 fL (79-100) H Mean Corpuscular Hemoglobin 35 pg (25-35) Mean Corpuscular Hemoglobin Concent 34 g/dL (31-37) Red Cell Distribution Width 14.2 % (11.5-14.5) Platelet Count 183 x10^3/uL (140-400) Neutrophils (%) (Auto) 56 % (31-73) Lymphocytes (%) (Auto) 35 % (24-48) Monocytes (%) (Auto) 8 % (0-9) Eosinophils (%) (Auto) 0 % (0-3) Basophils (%) (Auto) 1 % (0-3) Neutrophils # (Auto) 3.2 x10^3/uL (1.8-7.7) Lymphocytes # (Auto) 2.0 x10^3/uL (1.0-4.8) Monocytes # (Auto) 0.4 x10^3/uL (0.0-1.1) Eosinophils # (Auto) 0.0 x10^3/uL (0.0-0.7) Basophils # (Auto) 0.0 x10^3/uL (0.0-0.2) D-Dimer (Marcy) 0.35 ug/mlFEU (0.00-0.50) Sodium Level 139 mmol/L (136-145) Potassium Level 4.1 mmol/L (3.5-5.1) Chloride Level 100 mmol/L (98-107) Carbon Dioxide Level 24 mmol/L (21-32) Anion Gap 15 (6-14) H Blood Urea Nitrogen 9 mg/dL (8-26) Creatinine 0.8 mg/dL (0.7-1.3) Estimated GFR (Cockcroft-Gault) 117.4 BUN/Creatinine Ratio 11 (6-20) Glucose Level 96 mg/dL (70-99) Calcium Level 8.9 mg/dL (8.5-10.1) Magnesium Level 2.2 mg/dL (1.8-2.4) Total Bilirubin 0.4 mg/dL (0.2-1.0) Aspartate Amino Transferase (AST) 20 U/L (15-37) Alanine Aminotransferase (ALT) 28 U/L (16-63) Alkaline Phosphatase 48 U/L (46-116) Creatine Kinase 115 U/L (39-308) Creatine Kinase MB (Mass) 2.0 ng/mL (0.0-3.6) Creatine Kinase MB Relative Index 1.7 % (0-4) Troponin I Quantitative 0.031 ng/mL (0.000-0.055) RY-Oqs-V-Type Natriuretic Peptide 216 pg/mL (0-124) H Total Protein 7.6 g/dL (6.4-8.2) Albumin 3.8 g/dL (3.4-5.0) Albumin/Globulin Ratio 1.0 (1.0-1.7) Lipase 138 U/L (73-393) Influenza Type A Antigen Negative (NEGATIVE) Influenza Type B Antigen Negative (NEGATIVE) Laboratory Tests 01/25/21 20:50 Laboratory Tests 01/25/21 20:50 Vital Signs: Vital Signs Date Time Temp Pulse Resp B/P (MAP) Pulse Ox O2 Delivery O2 Flow Rate FiO2 01/25/21 21:31 74 14 124/77 (93) 98 Room Air 01/25/21 20:20 98.6 98.6 EKG: EK-sinus rhythm with a right bundle branch block, rate 81, QRST contour not mildly consistent with inferior infarct, probably old, no STEMI, read by Dr. Ramirez [] Heart Score: C/O Chest Pain: Yes HEART Score for Chest Pain: HEART Score for Chest Pain Response (Comments) Value History Moderately Suspicious 1 ECG Nonspecific Repolarizatio 1 Age > 65 2 Risk Factors >3 Risk Factors or Hx CAD 2 Troponin >1-<3x Normal Limit 1 Total 7 Risk Factors: Risk Factors: DM, Current or recent (<one month) smoker, HTN, HLP, family history of CAD, obesity. Risk Scores: Score 0 - 3: 2.5% MACE over next 6 weeks - Discharge Home Score 4 - 6: 20.3% MACE over next 6 weeks - Admit for Clinical Observation Score 7 - 10: 72.7% MACE over next 6 weeks - Early Invasive Strategies Radiology/Procedures: Radiology/Procedures: PROCEDURE: CHEST AP ONLY EXAM: AP View of the chest DATE: 01/25/2021 9:07 PM INDICATION: Reason: chest pain / Spl. Instructions: / History: COMPARISON: No Prior FINDINGS: Cardiac generator pack obscures a portion of the left chest with leads projecting over the right atrium and ventricle. In addition a left lead appears to project over the right subclavian vein/clavicle. The heart is not enlarged. Mediastinal and hilar contours are normal. No focal parenchymal airspace opacity. No pleural effusion or pneumothorax. IMPRESSION: 1. No radiographic evidence for acute cardiopulmonary process. 2. Pacer leads project over the right atrium and ventricle. In addition a third lead is seen at the level of the clavicles, possibly displaced lead or lead remnant. Electronically signed by: Mauri Pope MD (01/25/2021 10:36 PM) [facility] Course & Med Decision Making: Course & Med Decision Making Pertinent Labs and Imaging studies reviewed. (See chart for details) [id number] with Dr. Natarajan who is the admitting physician, and care was assumed following discussion of patient. Will admit patient for PUI and chest pain. Patient's vital signs stable. Patient remains afebrile, appears nontoxic, resp irations even and unlabored. Patient will be admitted to the CVC floor. Patient's case and plan of care also discussed with Dr. Ramirez [] Arian Disclaimer: Arian Disclaimer: This electronic medical record was generated, in whole or in part, using a voice recognition dictation system. Departure Departure Impression: Primary Impression: Person under investigation for COVID-19 Additional Impression: Chest pain Disposition: ADMITTED INPT THIS HOSP Admitting Physician: CHELSEA (Rosa Isela) Condition: STABLE Referrals: Tiarra OSBORNE MD (PCP) Problem Qualifiers Additional Impression: Chest pain Chest pain type: unspecified Qualified Codes: R07.9 - Chest pain, unspecified MARIA G ALEJANDRE [place] [employer] SAWYER Jan 25, 2021 22:23
[2021-01-25] MEDS ORDERED: ASPIRIN 325 MG TABLET PO ONE (22:30)
--- NOTE | 2021-01-25 22:38 | RAD ---
EXAM: AP View of the chest DATE: 01/25/2021 9:07 PM INDICATION: Reason: chest pain / Spl. Instructions: / History: COMPARISON: No Prior FINDINGS: Cardiac generator pack obscures a portion of the left chest with leads projecting over the right atri um and ventricle. In addition a left lead appears to project over the right subclavian vein/clavicle. The heart is not enlarged. Mediastinal and hilar contours are normal. No focal parenchymal airspace opacity. No pleural effusion or pneumothorax. IMPRESSION: 1. No radiographic evidence for acute cardiopulmonary process. 2. Pacer leads project over the right atrium and ventricle. In addition a third lead is seen at the level of the clavicles, possibly displaced lead or lead remnant. Electronically signed by: Mauri Pope MD (01/25/2021 10:36 PM) [facility]
[2021-01-26] VITALS (7 sets, daily range): BP systolic 106–145; BP diastolic 52–84
[2021-01-26 00:20] LABS: BILIRUBIN,URINE NEGATIVE (NEG); CLARITY,URINE TURBID; COLOR,URINE YELLOW; NITRITE,URINE NEGATIVE (NEG); PROTEIN,URINE NEGATIVE (NEG-TRACE); UROBILINOGEN,URINE 0.2 mg/dL (0.2 mg/dL)
[2021-01-26 00:34] LABS: BACTERIA,URINE 0 /HPF (0-FEW); RBC,URINE 0 /HPF (0-2); WBC,URINE 0 /HPF (0-4)
--- NOTE | 2021-01-26 07:26 | PDOC1 ---
History and Physical Date of Admission Date of Admission DATE: 01/26/21 TIME: 07:22 Identification/Chief Complaint Chief Complaint Chest pain Source Source: Chart review, Patient History of Present Illness History of Present Illness Patient 65-year-old male with past medical history hypertension, CAD, presents to the ER with complaints of chest pain that started last night. He reports chest pain 7/10, with associated nausea, shortness of breath, headache, and loss of smell. 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 He was recommended optimization of medical therapy for coronary artery disease and nonischemic cardiomyopathy. Upon arrival to ED chest x-ray showed no acute process. Initial troponins 0.031, 0.046. Will admit patient for further medical management. Past Medical History Cardiovascular: CAD, HTN Past Surgical History Past Surgical History Pacemaker, shoulder surgery Family History Family History: Hypertension Social History Smoke: 1 pack per day ALCOHOL: heavy Drugs: None Current Problem List Problem List Problems Medical Problems: (1) Person under investigation for COVID-19 Status: Acute Current Medications Current Medications Current Medications Aspirin (Jennifer Aspirin) 325 mg 1X ONCE PO Last administered on 01/25/21at 23:14; Start 01/25/21 at 22:30; Stop 01/25/21 at 22:31; Status DC Active Scripts Active Amiodarone Hcl 200 Mg Tablet 1 Tab PO DAILY 30 Days Aspir-Low (Aspirin) 81 Mg Tablet.dr 1 Tab PO DAILY Reported Simbrinza 1%-0.2% Eye Drops (Brinzolamide/Brimonid Tart) 8 Ml Drops.susp 8 Ml OP BID Latanoprost 2.5 Ml Drops 1 Drop OP HS Timoptic 0.5% (Timolol Maleate) 10 Ml Drops 1 Drop EACHEYE BID 30 Days Sildenafil (Sildenafil Citrate) 20 Mg Tablet 50 Mg PO PRN PRN Metoprolol Succinate ( Xl ) (Metoprolol Succinate) 200 Mg Tab.er.24h 100 Mg PO DAILY Lisinopril 10 Mg Tablet 10 Mg PO DAILY D3-50 (Cholecalciferol (Vitamin D3)) 50,000 Unit Capsule 2,000 Unit PO DAILY Allergies Allergies: Coded Allergies: No Known Drug Allergies (Unverified , 03/30/16) ROS Review of System GENERAL: No history of weight change, weakness or fevers. SKIN: No bruising, hair changes or rashes. EYES: No blurred, double or loss of vision. NOSE AND THROAT: Loss of smell. No history of nosebleeds, hoarseness or sore throat. HEART: Chest pain. Denies palpitations. LUNGS: Shortness of breath. Denies cough, hemoptysis, or wheezing. GASTROINTESTINAL: Nausea. Denies vomiting or abdominal pain. GENITOURINARY: Denies dysuria, frequency, urgency, hematuria. NEUROLOGIC: Headache. Denies history of numbness, tingling, tremor or weakness. PSYCHIATRIC: Denies anxiety, denies depression. ENDOCRINE: No history of heat or cold intolerance, polyuria or polydipsia. EXTREMITIES: Denies muscle weakness, joint pain, pain on walking or stiffness. Physical Exam Physical Exam General: Alert, Oriented X3, Cooperative, No acute distress HEENT: PERRLA, EOMI Lungs: Clear to auscultation, Normal air movement Heart: RRR, no murmurs. Pacemaker left chest wall. Cardiovascular: S1, S2 Abdomen: Normal bowel sounds, Soft, No tenderness Extremities: No clubbing, No cyanosis Skin: No rashes, No significant lesion Neuro: Normal speech, Normal tone, Sensation intact Psych/Mental Status: Mental status NL, Mood NL Vitals Vitals Vital Signs Date Time Temp Pulse Resp B/P (MAP) Pulse Ox O2 Delivery O2 Flow Rate FiO2 01/26/21 03:11 99.1 82 20 145/82 (103) 97 Room Air 99.1 Labs Labs Laboratory Tests Test 01/25/21 20:50 01/25/21 21:25 01/25/21 23:40 01/26/21 01:30 White Blood Count 5.7 x10^3/uL (4.0-11.0) Red Blood Count 3.92 x10^6/uL (4.30-5.70) Hemoglobin 13.5 g/dL (13.0-17.5) Hematocrit 39.5 % (39.0-53.0) Mean Corpuscular Volume 101 fL (79-100) Mean Corpuscular Hemoglobin 35 pg (25-35) Mean Corpuscular Hemoglobin Concent 34 g/dL (31-37) Red Cell Distribution Width 14.2 % (11.5-14.5) Platelet Count 183 x10^3/uL (140-400) Neutrophils (%) (Auto) 56 % (31-73) Lymphocytes (%) (Auto) 35 % (24-48) Monocytes (%) (Auto) 8 % (0-9) Eosinophils (%) (Auto) 0 % (0-3) Basophils (%) (Auto) 1 % (0-3) Neutrophils # (Auto) 3.2 x10^3/uL (1.8-7.7) Lymphocytes # (Auto) 2.0 x10^3/uL (1.0-4.8) Monocytes # (Auto) 0.4 x10^3/uL (0.0-1.1) Eosinophils # (Auto) 0.0 x10^3/uL (0.0-0.7) Basophils # (Auto) 0.0 x10^3/uL (0.0-0.2) D-Dimer (Marcy) 0.35 ug/mlFEU (0.00-0.50) Sodium Level 139 mmol/L (136-145) Potassium Level 4.1 mmol/L (3.5-5.1) Chloride Level 100 mmol/L (98-107) Carbon Dioxide Level 24 mmol/L (21-32) Anion Gap 15 (6-14) Blood Urea Nitrogen 9 mg/dL (8-26) Creatinine 0.8 mg/dL (0.7-1.3) Estimated GFR (Cockcroft-Gault) 117.4 BUN/Creatinine Ratio 11 (6-20) Glucose Level 96 mg/dL (70-99) Calcium Level 8.9 mg/dL (8.5-10.1) Magnesium Level 2.2 mg/dL (1.8-2.4) Total Bilirubin 0.4 mg/dL (0.2-1.0) Aspartate Amino Transf (AST/SGOT) 20 U/L (15-37) Alanine Aminotransferase (ALT/SGPT) 28 U/L (16-63) Alkaline Phosphatase 48 U/L (46-116) Creatine Kinase 115 U/L (39-308) Creatine Kinase MB (Mass) 2.0 ng/mL (0.0-3.6) Creatine Kinase MB Relative Index 1.7 % (0-4) Troponin I Quantitative 0.031 ng/mL (0.000-0.055) 0.046 ng/mL (0.000-0.055) CD-Mum-Y-Type Natriuretic Peptide 216 pg/mL (0-124) Total Protein 7.6 g/dL (6.4-8.2) Albumin 3.8 g/dL (3.4-5.0) Albumin/Globulin Ratio 1.0 (1.0-1.7) Lipase 138 U/L (73-393) Influenza Type A Antigen Negative (NEGATIVE) Influenza Type B Antigen Negative (NEGATIVE) Urine Collection Type Unknown Urine Color Yellow Urine Clarity Turbid Urine pH 5.0 (<5.0-8.0) Urine Specific [place] 1.020 (1.000-1.030) Urine Protein Negative mg/dL (NEG-TRACE) Urine Glucose (UA) Negative mg/dL (NEG) Urine Ketones (Stick) Negative mg/dL (NEG) Urine Blood Negative (NEG) Urine Nitrite Negative (NEG) Urine Bilirubin Negative (NEG) Urine Urobilinogen Dipstick 0.2 mg/dL (0.2 mg/dL) Urine Leukocyte Esterase Negative (NEG) Urine RBC 0 /HPF (0-2) Urine WBC 0 /HPF (0-4) Urine Squamous Epithelial Cells Occ /LPF Urine Bacteria 0 /HPF (0-FEW) Urine Mucus Slight /LPF Laboratory Tests Test 01/25/21 20:50 01/25/21 21:25 01/25/21 23:40 01/26/21 01:30 White Blood Count 5.7 x10^3/uL (4.0-11.0) Red Blood Count 3.92 x10^6/uL (4.30-5.70) Hemoglobin 13.5 g/dL (13.0-17.5) Hematocrit 39.5 % (39.0-53.0) Mean Corpuscular Volume 101 fL (79-100) Mean Corpuscular Hemoglobin 35 pg (25-35) Mean Corpuscular Hemoglobin Concent 34 g/dL (31-37) Red Cell Distribution Width 14.2 % (11.5-14.5) Platelet Count 183 x10^3/uL (140-400) Neutrophils (%) (Auto) 56 % (31-73) Lymphocytes (%) (Auto) 35 % (24-48) Monocytes (%) (Auto) 8 % (0-9) Eosinophils (%) (Auto) 0 % (0-3) Basophils (%) (Auto) 1 % (0-3) Neutrophils # (Auto) 3.2 x10^3/uL (1.8-7.7) Lymphocytes # (Auto) 2.0 x10^3/uL (1.0-4.8) Monocytes # (Auto) 0.4 x10^3/uL (0.0-1.1) Eosinophils # (Auto) 0.0 x10^3/uL (0.0-0.7) Basophils # (Auto) 0.0 x10^3/uL (0.0-0.2) D-Dimer (Marcy) 0.35 ug/mlFEU (0.00-0.50) Sodium Level 139 mmol/L (136-145) Potassium Level 4.1 mmol/L (3.5-5.1) Chloride Level 100 mmol/L (98-107) Carbon Dioxide Level 24 mmol/L (21-32) Anion Gap 15 (6-14) Blood Urea Nitrogen 9 mg/dL (8-26) Creatinine 0.8 mg/dL (0.7-1.3) Estimated GFR (Cockcroft-Gault) 117.4 BUN/Creatinine Ratio 11 (6-20) Glucose Level 96 mg/dL (70-99) Calcium Level 8.9 mg/dL (8.5-10.1) Magnesium Level 2.2 mg/dL (1.8-2.4) Total Bilirubin 0.4 mg/dL (0.2-1.0) Aspartate Amino Transf (AST/SGOT) 20 U/L (15-37) Alanine Aminotransferase (ALT/SGPT) 28 U/L (16-63) Alkaline Phosphatase 48 U/L (46-116) Creatine Kinase 115 U/L (39-308) Creatine Kinase MB (Mass) 2.0 ng/mL (0.0-3.6) Creatine Kinase MB Relative Index 1.7 % (0-4) Troponin I Quantitative 0.031 ng/mL (0.000-0.055) 0.046 ng/mL (0.000-0.055) CL-Fzc-A-Type Natriuretic Peptide 216 pg/mL (0-124) Total Protein 7.6 g/dL (6.4-8.2) Albumin 3.8 g/dL (3.4-5.0) Albumin/Globulin Ratio 1.0 (1.0-1.7) Lipase 138 U/L (73-393) Influenza Type A Antigen Negative (NEGATIVE) Influenza Type B Antigen Negative (NEGATIVE) Urine Collection Type Unknown Urine Color Yellow Urine Clarity Turbid Urine pH 5.0 (<5.0-8.0) Urine Specific [place] 1.020 (1.000-1.030) Urine Protein Negative mg/dL (NEG-TRACE) Urine Glucose (UA) Negative mg/dL (NEG) Urine Ketones (Stick) Negative mg/dL (NEG) Urine Blood Negative (NEG) Urine Nitrite Negative (NEG) Urine Bilirubin Negative (NEG) Urine Urobilinogen Dipstick 0.2 mg/dL (0.2 mg/dL) Urine Leukocyte Esterase Negative (NEG) Urine RBC 0 /HPF (0-2) Urine WBC 0 /HPF (0-4) Urine Squamous Epithelial Cells Occ /LPF Urine Bacteria 0 /HPF (0-FEW) Urine Mucus Slight /LPF Images Images CHEST AP ONLY EXAM: AP View of the chest DATE: 01/25/2021 9:07 PM INDICATION: Reason: chest pain / Spl. Instructions: / History: COMPARISON: No Prior FINDINGS: Cardiac generator pack obscures a portion of the left chest with leads projecting over the right atrium and ventricle. In addition a left lead appears to project over the right subclavian vein/clavicle. The heart is not enlarged. Mediastinal and hilar contours are normal. No focal parenchymal airspace opacity. No pleural effusion or pneumothorax. IMPRESSION: 1. No radiographic evidence for acute cardiopulmonary process. 2. Pacer leads project over the right atrium and ventricle. In addition a third lead is seen at the level of the clavicles, possibly displaced lead or lead remnant. VTE Prophylaxis Ordered VTE Prophylaxis Devices: No VTE Pharmacological Prophylaxi: Yes Assessment/Plan Assessment/Plan Unstable angina CAD COVID-19 PUI Plan: Received aspirin 325 x 1 in ED Morphine, nitroglycerin as needed Consult to cardiology Chest x-ray showed no acute process Echocardiogram (05/15/2020) showed EF 45% Influenza A&B negative; COVID-19 pending. Resume home medications FEN - Cardiac diet PPX - Lovenox FULL CODE Dispo - inpatient for above Justifications for Admission Other Justification ANKUR MARRERO MD Jan 26, 2021 07:26
[2021-01-26] MEDS ORDERED: NITROGLYCERIN SUBLINGUAL 0.4 MG BOTTLE OF 25. SL PRN (07:45)
[2021-01-26] MEDS ORDERED: NICOTINE 21MG PATCH. TD PRN (08:00)
[2021-01-26] MEDS ORDERED: ONDANSETRON PF 4 MG/2 ML VIAL. IVP PRN (08:00)
[2021-01-26] MEDS ORDERED: ZOLPIDEM 5 MG TABLET. PO PRN (08:00)
[2021-01-26] MEDS ORDERED: MAGNESIUM HYDROXIDE 2,400 MG/30 ML ORAL.SUSP. PO PRN (08:00)
[2021-01-26] MEDS ORDERED: CALCIUM CARBONATE 500 MG TAB.CHEW PO PRN (08:00)
[2021-01-26] MEDS ORDERED: ACETAMINOPHEN 325 MG TABLET. PO PRN (08:00)
[2021-01-26] MEDS ORDERED: MORPHINE SULFATE 2 MG/ML VIAL. IV PRN (08:00)
[2021-01-26] MEDS ORDERED: MAG HYDROX/ALUMINUM HYD/SIMETH 30 ML ORAL.SUSP PO PRN (08:00)
[2021-01-26] MEDS ORDERED: BISACODYL 10 MG SUPP.RECT. PR PRN (08:00)
[2021-01-26] MEDS: ASPIRIN ENTERIC COATED 81 MG TABLET.DR. PO SCH (09:00)
[2021-01-26] MEDS: AMIODARONE HCL 200 MG TABLET. PO SCH (09:00)
[2021-01-26] MEDS: LISINOPRIL 10 MG TABLET PO SCH (09:00)
[2021-01-26] MEDS: METOPROLOL SUCC 24HR ER 100 MG TAB.ER.24H. PO SCH ×2 (09:00→21:59)
[2021-01-26] MEDS: ENOXAPARIN 40 MG/0.4 ML SYRINGE. SQ SCH (11:55)
--- NOTE | 2021-01-26 13:34 | NUR ---
MYESHA following for discharge planning. SW reviewed chart and spoke with RN. Pt from home. Pt currently on room air, cardiac diet, IV pain medication. Pt COVID pending. Discharge plan is home, self-care. MYESHA following as needed. Addendum: 01/29/21 at 1053 by ALVARO BRUNNER Reviewed chart. COVID negative. Pt discharged home, self-care. No further SW needs
--- NOTE | 2021-01-26 17:02 | PDOC2 ---
CONSULT Date of Consult Date of Consult DATE: 01/26/21 TIME: 16:56 Reason for Consult Reason for Consult: Chest pain Referring Physician Referring Physician: Dr. Laura Identification/Chief Complaint Chief Complaint Shortness of breath. Source Source: Chart review, Patient History of Present Illness Reason for Visit: The patient is a 65-year-old male who was admitted through the emergency room with episodes of increasing shortness of breath, dizziness and mild chest pressure. He also reports that he lost his sense of smell over the last several days. Initial EKG showed a sinus rhythm with a right bundle branch block and no acute ischemic changes. Chest x-ray showed no acute processes. Troponin x4 has had a minimally elevated peak of 0.046. The patient has a history of coronary artery disease with a reported catheterization last year showing an occlusion of the left circumflex and an ejection fraction of 25%. He reports an ICD has been placed. He states he was in the [facility] last month and had another heart catheterization which did not require stenting and potentially had an ICD upgrade although we do not have records yet. He is feeling better today. He continues to have some shortness of breath. His pain has resolved. Past Medical History Cardiovascular: CAD, CHF, HTN Pulmonary: Bronchitis, COPD Past Surgical History Past Surgical History: Other (ICD placement, shoulder surgery.) Family History Family History: Hypertension Social History 1 pack per day ALCOHOL: heavy Drugs: None Current Problem List Problem List Problems Medical Problems: (1) Person under investigation for COVID-19 Status: Acute Current Medications Current Medications Current Medications Aspirin (Jennifer Aspirin) 325 mg 1X ONCE PO Last administered on 01/25/21at 23:14; Start 01/25/21 at 22:30; Stop 01/25/21 at 22:31; Status DC Amiodarone HCl (Cordarone) 200 mg DAILY PO ; Start 01/26/21 at 09:00 Aspirin (Ecotrin) 81 mg DAILY PO ; Start 01/26/21 at 09:00 Lisinopril (Prinivil) 10 mg DAILY PO ; Start 01/26/21 at 09:00 Metoprolol Succinate (Toprol Xl) 100 mg DAILY PO ; Start 01/26/21 at 09:00 Nitroglycerin (Nitrostat) 0.4 mg PRN Q5MIN PRN SL CHEST PAIN; Start 01/26/21 at 07:45 Ondansetron HCl (Zofran) 4 mg PRN Q6HRS PRN IVP NAUSEA/VOMITING; Start 01/26/21 at 08:00 Al Hydroxide/Mg Hydroxide (Mylanta Plus Xs) 30 ml PRN Q3HRS PRN PO HEARTBURN / GAS; Start 01/26/21 at 08:00 Calcium Carbonate/ Glycine (Tums) 500 mg PRN Q3HRS PRN PO UPSET STOMACH; Start 01/26/21 at 08:00 Zolpidem Tartrate (Ambien) 5 mg PRN QHS PRN PO INSOMNIA, MAY REPEAT IN 1HR; Start 01/26/21 at 08:00 Morphine Sulfate (Morphine Sulfate) 2 mg PRN Q1HR PRN IV PAIN; Start 01/26/21 at 08:00 Acetaminophen (Tylenol) 650 mg PRN Q6HRS PRN PO Headaches, Temp > 101.5F; Start 01/26/21 at 08:00 Magnesium Hydroxide (Milk Of Magnesia) 2,400 mg PRN Q12HR PRN PO CONSTIPATION; Start 01/26/21 at 08:00 Bisacodyl (Dulcolax Supp) 10 mg PRN DAILY PRN [place] CONSTIPATION; Start 01/26/21 at 08:00 Enoxaparin Sodium (Lovenox 40mg Syringe) 40 mg Q24H SQ Last administered on 01/26/21at 11:55; Start 01/26/21 at 08:00 Nicotine (Nicoderm Cq 21mg) 1 patch PRN DAILY PRN TD SMOKING CESSATION; Start 01/26/21 at 08:00 Active Scripts Active Amiodarone Hcl 200 Mg Tablet 1 Tab PO DAILY 30 Days Aspir-Low (Aspirin) 81 Mg Tablet.dr 1 Tab PO DAILY Reported Simbrinza 1%-0.2% Eye Drops (Brinzolamide/Brimonid Tart) 8 Ml Drops.susp 8 Ml OP BID Latanoprost 2.5 Ml Drops 1 Drop OP HS Timoptic 0.5% (Timolol Maleate) 10 Ml Drops 1 Drop EACHEYE BID 30 Days Metoprolol Succinate ( Xl ) (Metoprolol Succinate) 200 Mg Tab.er.24h 100 Mg PO DAILY Lisinopril 10 Mg Tablet 10 Mg PO DAILY D3-50 (Cholecalciferol (Vitamin D3)) 50,000 Unit Capsule 2,000 Unit PO DAILY Allergies Allergies: Coded Allergies: No Known Drug Allergies (Unverified , 03/30/16) ROS General: YES: Fatigue Respiratory: YES: Shortness of breath, SOB with excertion Cardiovascular: yes Chest Pain Physical Exam General: mild distress Lungs: Other (Slightly decreased breath sounds) Heart: Regular rate Abdomen: Normal bowel sounds Vitals VITALS Vital Signs Date Time Temp Pulse Resp B/P (MAP) Pulse Ox O2 Delivery O2 Flow Rate FiO2 01/26/21 15:00 98.0 80 20 140/84 (102) 98 Room Air 98.0 Labs Labs Laboratory Tests Test 01/25/21 20:50 01/25/21 21:25 01/25/21 23:40 01/26/21 01:30 White Blood Count 5.7 x10^3/uL (4.0-11.0) Red Blood Count 3.92 x10^6/uL (4.30-5.70) Hemoglobin 13.5 g/dL (13.0-17.5) Hematocrit 39.5 % (39.0-53.0) Mean Corpuscular Volume 101 fL (79-100) Mean Corpuscular Hemoglobin 35 pg (25-35) Mean Corpuscular Hemoglobin Concent 34 g/dL (31-37) Red Cell Distribution Width 14.2 % (11.5-14.5) Platelet Count 183 x10^3/uL (140-400) Neutrophils (%) (Auto) 56 % (31-73) Lymphocytes (%) (Auto) 35 % (24-48) Monocytes (%) (Auto) 8 % (0-9) Eosinophils (%) (Auto) 0 % (0-3) Basophils (%) (Auto) 1 % (0-3) Neutrophils # (Auto) 3.2 x10^3/uL (1.8-7.7) Lymphocytes # (Auto) 2.0 x10^3/uL (1.0-4.8) Monocytes # (Auto) 0.4 x10^3/uL (0.0-1.1) Eosinophils # (Auto) 0.0 x10^3/uL (0.0-0.7) Basophils # (Auto) 0.0 x10^3/uL (0.0-0.2) D-Dimer (Marcy) 0.35 ug/mlFEU (0.00-0.50) Sodium Level 139 mmol/L (136-145) Potassium Level 4.1 mmol/L (3.5-5.1) Chloride Level 100 mmol/L (98-107) Carbon Dioxide Level 24 mmol/L (21-32) Anion Gap 15 (6-14) Blood Urea Nitrogen 9 mg/dL (8-26) Creatinine 0.8 mg/dL (0.7-1.3) Estimated GFR (Cockcroft-Gault) 117.4 BUN/Creatinine Ratio 11 (6-20) Glucose Level 96 mg/dL (70-99) Calcium Level 8.9 mg/dL (8.5-10.1) Magnesium Level 2.2 mg/dL (1.8-2.4) Total Bilirubin 0.4 mg/dL (0.2-1.0) Aspartate Amino Transf (AST/SGOT) 20 U/L (15-37) Alanine Aminotransferase (ALT/SGPT) 28 U/L (16-63) Alkaline Phosphatase 48 U/L (46-116) Creatine Kinase 115 U/L (39-308) Creatine Kinase MB (Mass) 2.0 ng/mL (0.0-3.6) Creatine Kinase MB Relative Index 1.7 % (0-4) Troponin I Quantitative 0.031 ng/mL (0.000-0.055) 0.046 ng/mL (0.000-0.055) YV-Eix-K-Type Natriuretic Peptide 216 pg/mL (0-124) Total Protein 7.6 g/dL (6.4-8.2) Albumin 3.8 g/dL (3.4-5.0) Albumin/Globulin Ratio 1.0 (1.0-1.7) Lipase 138 U/L (73-393) Influenza Type A Antigen Negative (NEGATIVE) Influenza Type B Antigen Negative (NEGATIVE) Urine Collection Type Unknown Urine Color Yellow Urine Clarity Turbid Urine pH 5.0 (<5.0-8.0) Urine Specific [place] 1.020 (1.000-1.030) Urine Protein Negative mg/dL (NEG-TRACE) Urine Glucose (UA) Negative mg/dL (NEG) Urine Ketones (Stick) Negative mg/dL (NEG) Urine Blood Negative (NEG) Urine Nitrite Negative (NEG) Urine Bilirubin Negative (NEG) Urine Urobilinogen Dipstick 0.2 mg/dL (0.2 mg/dL) Urine Leukocyte Esterase Negative (NEG) Urine RBC 0 /HPF (0-2) Urine WBC 0 /HPF (0-4) Urine Squamous Epithelial Cells Occ /LPF Urine Bacteria 0 /HPF (0-FEW) Urine Mucus Slight /LPF Test 01/26/21 06:30 01/26/21 11:50 Troponin I Quantitative 0.034 ng/mL (0.000-0.055) 0.024 ng/mL (0.000-0.055) Laboratory Tests Test 01/25/21 20:50 01/25/21 21:25 01/25/21 23:40 01/26/21 01:30 White Blood Count 5.7 x10^3/uL (4.0-11.0) Red Blood Count 3.92 x10^6/uL (4.30-5.70) Hemoglobin 13.5 g/dL (13.0-17.5) Hematocrit 39.5 % (39.0-53.0) Mean Corpuscular Volume 101 fL (79-100) Mean Corpuscular Hemoglobin 35 pg (25-35) Mean Corpuscular Hemoglobin Concent 34 g/dL (31-37) Red Cell Distribution Width 14.2 % (11.5-14.5) Platelet Count 183 x10^3/uL (140-400) Neutrophils (%) (Auto) 56 % (31-73) Lymphocytes (%) (Auto) 35 % (24-48) Monocytes (%) (Auto) 8 % (0-9) Eosinophils (%) (Auto) 0 % (0-3) Basophils (%) (Auto) 1 % (0-3) Neutrophils # (Auto) 3.2 x10^3/uL (1.8-7.7) Lymphocytes # (Auto) 2.0 x10^3/uL (1.0-4.8) Monocytes # (Auto) 0.4 x10^3/uL (0.0-1.1) Eosinophils # (Auto) 0.0 x10^3/uL (0.0-0.7) Basophils # (Auto) 0.0 x10^3/uL (0.0-0.2) D-Dimer (Marcy) 0.35 ug/mlFEU (0.00-0.50) Sodium Level 139 mmol/L (136-145) Potassium Level 4.1 mmol/L (3.5-5.1) Chloride Level 100 mmol/L (98-107) Carbon Dioxide Level 24 mmol/L (21-32) Anion Gap 15 (6-14) Blood Urea Nitrogen 9 mg/dL (8-26) Creatinine 0.8 mg/dL (0.7-1.3) Estimated GFR (Cockcroft-Gault) 117.4 BUN/Creatinine Ratio 11 (6-20) Glucose Level 96 mg/dL (70-99) Calcium Level 8.9 mg/dL (8.5-10.1) Magnesium Level 2.2 mg/dL (1.8-2.4) Total Bilirubin 0.4 mg/dL (0.2-1.0) Aspartate Amino Transf (AST/SGOT) 20 U/L (15-37) Alanine Aminotransferase (ALT/SGPT) 28 U/L (16-63) Alkaline Phosphatase 48 U/L (46-116) Creatine Kinase 115 U/L (39-308) Creatine Kinase MB (Mass) 2.0 ng/mL (0.0-3.6) Creatine Kinase MB Relative Index 1.7 % (0-4) Troponin I Quantitative 0.031 ng/mL (0.000-0.055) 0.046 ng/mL (0.000-0.055) ZB-Mfv-J-Type Natriuretic Peptide 216 pg/mL (0-124) Total Protein 7.6 g/dL (6.4-8.2) Albumin 3.8 g/dL (3.4-5.0) Albumin/Globulin Ratio 1.0 (1.0-1.7) Lipase 138 U/L (73-393) Influenza Type A Antigen Negative (NEGATIVE) Influenza Type B Antigen Negative (NEGATIVE) Urine Collection Type Unknown Urine Color Yellow Urine Clarity Turbid Urine pH 5.0 (<5.0-8.0) Urine Specific [place] 1.020 (1.000-1.030) Urine Protein Negative mg/dL (NEG-TRACE) Urine Glucose (UA) Negative mg/dL (NEG) Urine Ketones (Stick) Negative mg/dL (NEG) Urine Blood Negative (NEG) Urine Nitrite Negative (NEG) Urine Bilirubin Negative (NEG) Urine Urobilinogen Dipstick 0.2 mg/dL (0.2 mg/dL) Urine Leukocyte Esterase Negative (NEG) Urine RBC 0 /HPF (0-2) Urine WBC 0 /HPF (0-4) Urine Squamous Epithelial Cells Occ /LPF Urine Bacteria 0 /HPF (0-FEW) Urine Mucus Slight /LPF Test 01/26/21 06:30 01/26/21 11:50 Troponin I Quantitative 0.034 ng/mL (0.000-0.055) 0.024 ng/mL (0.000-0.055) Images Images Chest x-ray shows no acute processes. Assessment/Plan Assessment/Plan 1. Acute on chronic systolic heart failure. Reported ejection fraction of 25%. Improving on present treatment. We will continue present medications and brittny tor lab. Will obtain recent records from the OR. 2. Exacerbation of COPD. The patient continues to smoke cigarettes. We will continue present treatment. 3. History of coronary artery disease. Catheterization in 2019 showed an occlusion of the left circumflex. Patient reports she had may have had a catheterization at the OR last month and will obtain records. Patient's pain has largely resolved. Troponins have not been significantly elevated. EKG shows no acute ischemic changes. We will continue present treatment. 4. Ischemic cardiomyopathy. [facility] Continue medications as above. 5. Implantable defibrillator secondary to decreased ejection fraction. Continue present treatments. Obtain further records from the OR. Thank you for allowing us to participate in the care of your patient. DHIRAJ WYATT MD Jan 26, 2021 17:02
[2021-01-27 03:53] VITALS: BP 144/86
[2021-01-27 07:00] VITALS: BP 125/83
[2021-01-27] MEDS: ASPIRIN ENTERIC COATED 81 MG TABLET.DR. PO SCH (08:41)
[2021-01-27] MEDS: ENOXAPARIN 40 MG/0.4 ML SYRINGE. SQ SCH (08:41)
[2021-01-27] MEDS: METOPROLOL SUCC 24HR ER 100 MG TAB.ER.24H. PO SCH (08:41)
[2021-01-27] MEDS: LISINOPRIL 10 MG TABLET PO SCH (08:42)
[2021-01-27] MEDS: AMIODARONE HCL 200 MG TABLET. PO SCH (08:42)
--- NOTE | 2021-01-27 10:23 | PDOC ---
[employer] PROGRESS NOTE Date of Service DOS: DATE: 01/27/21 TIME: 10:17 Chief Complaint Chief Complaint Unstable angina CAD COVID-19 PUI Plan: Received aspirin 325 x 1 in ED Morphine, nitroglycerin as needed Consult to cardiology Chest x-ray showed no acute process Echocardiogram (05/15/2020) showed EF 45% Influenza A&B negative; COVID-19 pending. Resume home medications FEN - Cardiac diet PPX - Lovenox FULL CODE Dispo - inpatient for above History of Present Illness History of Present Illness Patient 65-year-old male with past medical history hypertension, CAD, presents to the ER with complaints of chest pain that started last night. He reports chest pain /, with associated nausea, shortness of breath, headache, and loss of smell. 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 He was recommended op timization of medical therapy for coronary artery disease and nonischemic cardiomyopathy. Upon arrival to ED chest x-ray showed no acute process. Initial troponins 0.031, 0.046. Will admit patient for further medical management. 01/27/2021: Patient afebrile, denies any chest pain today. Cardiology was consulted, attempting to obtain records from [place] about recent cardiac catheteri zation. Okay to discharge with outpatient cardiology follow-up. Greater than 30 minutes was spent managing discharge this patient. Vitals/I&O Vitals/I&O: Vital Signs Date Time Temp Pulse Resp B/P (MAP) Pulse Ox O2 Delivery O2 Flow Rate FiO2 01/27/21 08:42 71 125/83 01/27/21 07:00 98.1 18 96 Room Air 98.1 I & O 01/26/21 01/26/21 01/27/21 15:00 23:00 07:00 Intake Total 1500 ml Balance 1500 ml Physical Exam General: Alert, No acute distress Heart: Regular rate Lungs: Clear Abdomen: Normal bowel sounds Extremities: No clubbing, No cyanosis Skin: No rashes, No breakdown Labs Labs: Laboratory Tests Test 01/26/21 11:50 Troponin I Quantitative 0.024 ng/mL (0.000-0.055) Assessment and Plan Assessmemt and Plan Problems Medical Problems: (1) Person under investigation for COVID-19 Status: Acute Comment Review of Relevant I have reviewed the following items lashon (where applicable) has been applied. Justifications for Admission Other Justification ANKUR MARRERO MD Jan 27, 2021 10:23
[2021-01-27 11:00] VITALS: BP 130/89
--- NOTE | 2021-01-27 13:10 | PDOC3 ---
Discharge Summary Visit Information Date of Admission: Jan 26, 2021 Date of Discharge: Jan 27, 2021 Final Diagnosis Problems Medical Problems: (1) Person under investigation for COVID-19 Status: Acute Brief Hospital Course Allergies Allergies Coded Allergies Type Severity Reaction Last Updated Verified No Known Drug Allergies 03/30/16 No Vital Signs Vital Signs Date Time Temp Pulse Resp B/P (MAP) Pulse Ox O2 Delivery O2 Flow Rate FiO2 01/27/21 11:00 97.8 66 18 130/89 (103) 100 Room Air 97.8 Lab Results Laboratory Tests Test 01/25/21 20:50 01/25/21 21:25 01/25/21 23:40 01/26/21 01:30 White Blood Count 5.7 x10^3/uL (4.0-11.0) Red Blood Count 3.92 x10^6/uL (4.30-5.70) Hemoglobin 13.5 g/dL (13.0-17.5) Hematocrit 39.5 % (39.0-53.0) Mean Corpuscular Volume 101 fL (79-100) Mean Corpuscular Hemoglobin 35 pg (25-35) Mean Corpuscular Hemoglobin Concent 34 g/dL (31-37) Red Cell Distribution Width 14.2 % (11.5-14.5) Platelet Count 183 x10^3/uL (140-400) Neutrophils (%) (Auto) 56 % (31-73) Lymphocytes (%) (Auto) 35 % (24-48) Monocytes (%) (Auto) 8 % (0-9) Eosinophils (%) (Auto) 0 % (0-3) Basophils (%) (Auto) 1 % (0-3) Neutrophils # (Auto) 3.2 x10^3/uL (1.8-7.7) Lymphocytes # (Auto) 2.0 x10^3/uL (1.0-4.8) Monocytes # (Auto) 0.4 x10^3/uL (0.0-1.1) Eosinophils # (Auto) 0.0 x10^3/uL (0.0-0.7) Basophils # (Auto) 0.0 x10^3/uL (0.0-0.2) D-Dimer (Marcy) 0.35 ug/mlFEU (0.00-0.50) Sodium Level 139 mmol/L (136-145) Potassium Level 4.1 mmol/L (3.5-5.1) Chloride Level 100 mmol/L (98-107) Carbon Dioxide Level 24 mmol/L (21-32) Anion Gap 15 (6-14) Blood Urea Nitrogen 9 mg/dL (8-26) Creatinine 0.8 mg/dL (0.7-1.3) Estimated GFR (Cockcroft-Gault) 117.4 BUN/Creatinine Ratio 11 (6-20) Glucose Level 96 mg/dL (70-99) Calcium Level 8.9 mg/dL (8.5-10.1) Magnesium Level 2.2 mg/dL (1.8-2.4) Total Bilirubin 0.4 mg/dL (0.2-1.0) Aspartate Amino Transf (AST/SGOT) 20 U/L (15-37) Alanine Aminotransferase (ALT/SGPT) 28 U/L (16-63) Alkaline Phosphatase 48 U/L (46-116) Creatine Kinase 115 U/L (39-308) Creatine Kinase MB (Mass) 2.0 ng/mL (0.0-3.6) Creatine Kinase MB Relative Index 1.7 % (0-4) Troponin I Quantitative 0.031 ng/mL (0.000-0.055) 0.046 ng/mL (0.000-0.055) GY-Csl-R-Type Natriuretic Peptide 216 pg/mL (0-124) Total Protein 7.6 g/dL (6.4-8.2) Albumin 3.8 g/dL (3.4-5.0) Albumin/Globulin Ratio 1.0 (1.0-1.7) Lipase 138 U/L (73-393) Influenza Type A Antigen Negative (NEGATIVE) Influenza Type B Antigen Negative (NEGATIVE) Urine Collection Type Unknown Urine Color Yellow Urine Clarity Turbid Urine pH 5.0 (<5.0-8.0) Urine Specific [place] 1.020 (1.000-1.030) Urine Protein Negative mg/dL (NEG-TRACE) Urine Glucose (UA) Negative mg/dL (NEG) Urine Ketones (Stick) Negative mg/dL (NEG) Urine Blood Negative (NEG) Urine Nitrite Negative (NEG) Urine Bilirubin Negative (NEG) Urine Urobilinogen Dipstick 0.2 mg/dL (0.2 mg/dL) Urine Leukocyte Esterase Negative (NEG) Urine RBC 0 /HPF (0-2) Urine WBC 0 /HPF (0-4) Urine Squamous Epithelial Cells Occ /LPF Urine Bacteria 0 /HPF (0-FEW) Urine Mucus Slight /LPF Test 01/26/21 06:30 01/26/21 11:50 Troponin I Quantitative 0.034 ng/mL (0.000-0.055) 0.024 ng/mL (0.000-0.055) Brief Hospital Course Mr. Jc is a 65 old male who presented with chest pain. Consultation placed to cardiology. Troponins were detectable but not elevated. Cardiology without plans for acute intervention; okay with discharge and outpatient follow- up. Discharge Information Condition at Discharge: Improved Follow Up: Weeks Disposition/Orders: D/C to Home Scheduled Amiodarone Hcl (Amiodarone Hcl) 200 Mg Tablet, 1 TAB PO DAILY for antiarrhythmic for 30 Days, #30 Ref 1 Prescribed by: KEYLA GERMAIN APRN on 05/16/201522 Last Action: Reviewed on 01/26/21940 by RAYMOND RINALDI Aspirin (Aspir-Low) 81 Mg Tablet.dr, 1 TAB PO DAILY, #90 Ref 3 Prescribed by: JO OSBORNE MD on 07/22/18 1619 Last Action: Reviewed on 01/26/21940 by RAYMOND RINALDI Brinzolamide/Brimonid Tart (Simbrinza 1%-0.2% Eye Drops) 8 Ml Drops.susp, 8 ML OP BID for Glaucoma, (Reported) Entered as Reported by: ESTEFANÍA SMITH RN on 05/12/201556 Last Action: Reviewed on 01/26/21940 by RAYMOND RINALDI Cholecalciferol (Vitamin D3) (D3-50) 50,000 Unit Capsule, 2,000 UNIT PO DAILY for vitamin d deficiency , (Reported) Entered as Reported by: ESTEFANÍA SMITH RN on 05/12/201556 Last Action: Reviewed on 01/26/21940 by RAYMOND RINALDI Latanoprost (Latanoprost) 2.5 Ml Drops, 1 DROP OP HS for Glaucoma, (Reported) Entered as Reported by: ESTEFANÍA SMITH RN on 05/12/201556 Last Action: Reviewed on 01/26/21940 by RAYMOND RINALDI Lisinopril (Lisinopril) 10 Mg Tablet, 10 MG PO DAILY for FOR HYPERTENSION, #30 Ref 0 (Reported) Entered as Reported by: ESTEFANÍA SMITH RN on 05/12/201556 Last Action: Reviewed on 01/26/21940 by RAYMOND RINALDI Metoprolol Succinate (Metoprolol Succinate ( Xl )) 200 Mg Tab.er.24h, 100 MG PO DAILY for FOR HYPERTENSION, #30 Ref 0 (Reported) Entered as Reported by: ESTEFANÍA SMITH RN on 05/12/201556 Last Action: Reviewed on 01/26/21940 by RAYMOND RINALDI Timolol Maleate 0.5% (Timoptic 0.5%) 10 Ml Drops, 1 DROP EACHEYE BID for Glauco ma for 30 Days, #5 Ref 0 (Reported) Entered as Reported by: ESTEFANÍA SMITH RN on 05/12/201556 Last Action: Reviewed on 01/26/21940 by RAYMOND RINALDI Justicifation of Admission Dx: Justifications for Admission: Justification of Admission Dx: Yes Angina: Symp at Rest ANKUR MARRERO MD Jan 27, 2021 13:10
[2021-01-27 14:49] VITALS: BP 126/82
--- NOTE | 2021-01-27 15:41 | PDOC ---
PROGRESS NOTES Date of Service DATE: 01/27/21 TIME: 15:37 Subjective Subjective Patient seen and examined Objective Objective Vital Signs Date Time Temp Pulse Resp B/P (MAP) Pulse Ox O2 Delivery O2 Flow Rate FiO2 01/27/21 14:49 97.6 68 18 126/82 (97) 99 Room Air 97.6 Intake and Output 01/27/21 07:00 Intake Total 1500 ml Balance 1500 ml Intake Oral 1500 ml # Voids 2 Physical Exam Abdomen: Normal bowel sounds Heart: Regular rate General: No acute distress Lungs: Clear to auscultation Assessment Assessment Problems Medical Problems: (1) Person under investigation for COVID-19 Status: Acute 1. Acute on chronic systolic heart failure. The patient looks and feels better today. We will continue present medications. Records have been obtained through the [facility]. Echocardiogram on 12/05/2020 showed an ejection fraction of 40%. 2. Exacerbation of COPD. Improved. The patient continues to smoke cigarettes. We will continue present treatment. 3. History of coronary artery disease. Patient underwent a cardiac catheterization in November at the [facility] with a 30% mid LAD lesion and a chronic total occlusion of the mid circumflex with collaterals. Patient denies chest pain. We will continue present treatment. 4. Ischemic cardiomyopathy. Records from the [facility] as above show an ejection fraction of 40%. 5. Implantable defibrillator[facility] Biot[facility] ICD [facility] on 12/11/20 for recurrent VT. Rhythm stable overnight. Patient is scheduled to follow-up with the [facility]. Comment Review of Relevant I have reviewed the following items lashon (where applicable) has been applied. Labs Laboratory Tests Test 01/25/21 20:50 01/25/21 21:25 01/25/21 23:40 01/26/21 01:30 White Blood Count 5.7 x10^3/uL (4.0-11.0) Red Blood Count 3.92 x10^6/uL (4.30-5.70) Hemoglobin 13.5 g/dL (13.0-17.5) Hematocrit 39.5 % (39.0-53.0) Mean Corpuscular Volume 101 fL (79-100) Mean Corpuscular Hemoglobin 35 pg (25-35) Mean Corpuscular Hemoglobin Concent 34 g/dL (31-37) Red Cell Distribution Width 14.2 % (11.5-14.5) Platelet Count 183 x10^3/uL (140-400) Neutrophils (%) (Auto) 56 % (31-73) Lymphocytes (%) (Auto) 35 % (24-48) Monocytes (%) (Auto) 8 % (0-9) Eosinophils (%) (Auto) 0 % (0-3) Basophils (%) (Auto) 1 % (0-3) Neutrophils # (Auto) 3.2 x10^3/uL (1.8-7.7) Lymphocytes # (Auto) 2.0 x10^3/uL (1.0-4.8) Monocytes # (Auto) 0.4 x10^3/uL (0.0-1.1) Eosinophils # (Auto) 0.0 x10^3/uL (0.0-0.7) Basophils # (Auto) 0.0 x10^3/uL (0.0-0.2) D-Dimer (Marcy) 0.35 ug/mlFEU (0.00-0.50) Sodium Level 139 mmol/L (136-145) Potassium Level 4.1 mmol/L (3.5-5.1) Chloride Level 100 mmol/L (98-107) Carbon Dioxide Level 24 mmol/L (21-32) Anion Gap 15 (6-14) Blood Urea Nitrogen 9 mg/dL (8-26) Creatinine 0.8 mg/dL (0.7-1.3) Estimated GFR (Cockcroft-Gault) 117.4 BUN/Creatinine Ratio 11 (6-20) Glucose Level 96 mg/dL (70-99) Calcium Level 8.9 mg/dL (8.5-10.1) Magnesium Level 2.2 mg/dL (1.8-2.4) Total Bilirubin 0.4 mg/dL (0.2-1.0) Aspartate Amino Transf (AST/SGOT) 20 U/L (15-37) Alanine Aminotransferase (ALT/SGPT) 28 U/L (16-63) Alkaline Phosphatase 48 U/L (46-116) Creatine Kinase 115 U/L (39-308) Creatine Kinase MB (Mass) 2.0 ng/mL (0.0-3.6) Creatine Kinase MB Relative Index 1.7 % (0-4) Troponin I Quantitative 0.031 ng/mL (0.000-0.055) 0.046 ng/mL (0.000-0.055) QL-Iph-O-Type Natriuretic Peptide 216 pg/mL (0-124) Total Protein 7.6 g/dL (6.4-8.2) Albumin 3.8 g/dL (3.4-5.0) Albumin/Globulin Ratio 1.0 (1.0-1.7) Lipase 138 U/L (73-393) Influenza Type A Antigen Negative (NEGATIVE) Influenza Type B Antigen Negative (NEGATIVE) Urine Collection Type Unknown Urine Color Yellow Urine Clarity Turbid Urine pH 5.0 (<5.0-8.0) Urine Specific [place] 1.020 (1.000-1.030) Urine Protein Negative mg/dL (NEG-TRACE) Urine Glucose (UA) Negative mg/dL (NEG) Urine Ketones (Stick) Negative mg/dL (NEG) Urine Blood Negative (NEG) Urine Nitrite Negative (NEG) Urine Bilirubin Negative (NEG) Urine Urobilinogen Dipstick 0.2 mg/dL (0.2 mg/dL) Urine Leukocyte Esterase Negative (NEG) Urine RBC 0 /HPF (0-2) Urine WBC 0 /HPF (0-4) Urine Squamous Epithelial Cells Occ /LPF Urine Bacteria 0 /HPF (0-FEW) Urine Mucus Slight /LPF Test 01/26/21 06:30 01/26/21 11:50 Troponin I Quantitative 0.034 ng/mL (0.000-0.055) 0.024 ng/mL (0.000-0.055) Medications Current Medications Aspirin (Jennifer Aspirin) 325 mg 1X ONCE PO Last administered on 01/25/21at 23:14; Start 01/25/21 at 22:30; Stop 01/25/21 at 22:31; Status DC Amiodarone HCl (Cordarone) 200 mg DAILY PO Last administered on 01/27/21at 08:42; Start 01/26/21 at 09:00 Aspirin (Ecotrin) 81 mg DAILY PO Last administered on 01/27/21at 08:41; Start 01/26/21 at 09:00 Lisinopril (Prinivil) 10 mg DAILY PO Last administered on 01/27/21at 08:42; Start 01/26/21 at 09:00 Metoprolol Succinate (Toprol Xl) 100 mg DAILY PO Last administered on 01/27/21at 08:41; Start 01/26/21 at 09:00 Nitroglycerin (Nitrostat) 0.4 mg PRN Q5MIN PRN SL CHEST PAIN; Start 01/26/21 at 07:45 Ondansetron HCl (Zofran) 4 mg PRN Q6HRS PRN IVP NAUSEA/VOMITING; Start 01/26/21 at 08:00 Al Hydroxide/Mg Hydroxide (Mylanta Plus Xs) 30 ml PRN Q3HRS PRN PO HEARTBURN / GAS; Start 01/26/21 at 08:00 Calcium Carbonate/ Glycine (Tums) 500 mg PRN Q3HRS PRN PO UPSET STOMACH; Start 01/26/21 at 08:00 Zolpidem Tartrate (Ambien) 5 mg PRN QHS PRN PO INSOMNIA, MAY REPEAT IN 1HR; Start 01/26/21 at 08:00 Morphine Sulfate (Morphine Sulfate) 2 mg PRN Q1HR PRN IV PAIN; Start 01/26/21 at 08:00 Acetaminophen (Tylenol) 650 mg PRN Q6HRS PRN PO Headaches, Temp > 101.5F; Start 01/26/21 at 08:00 Magnesium Hydroxide (Milk Of Magnesia) 2,400 mg PRN Q12HR PRN PO CONSTIPATION; Start 01/26/21 at 08:00 Bisacodyl (Dulcolax Supp) 10 mg PRN DAILY PRN [place] CONSTIPATION; Start 01/26/21 at 08:00 Enoxaparin Sodium (Lovenox 40mg Syringe) 40 mg Q24H SQ Last administered on 01/27/21at 08:41; Start 01/26/21 at 08:00 Nicotine (Nicoderm Cq 21mg) 1 patch PRN DAILY PRN TD SMOKING CESSATION; Start 01/26/21 at 08:00 Active Scripts Active Amiodarone Hcl 200 Mg Tablet 1 Tab PO DAILY 30 Days Aspir-Low (Aspirin) 81 Mg Tablet.dr 1 Tab PO DAILY Reported Simbrinza 1%-0.2% Eye Drops (Brinzolamide/Brimonid Tart) 8 Ml Drops.susp 8 Ml OP BID Latanoprost 2.5 Ml Drops 1 Drop OP HS Timoptic 0.5% (Timolol Maleate) 10 Ml Drops 1 Drop EACHEYE BID 30 Days Metoprolol Succinate ( Xl ) (Metoprolol Succinate) 200 Mg Tab.er.24h 100 Mg PO DAILY Lisinopril 10 Mg Tablet 10 Mg PO DAILY D3-50 (Cholecalciferol (Vitamin D3)) 50,000 Unit Capsule 2,000 Unit PO DAILY Vitals/I & O Vital Sign - Last 24 Hours 01/26/21 01/26/21 01/26/21 01/26/21 19:00 21:59 22:00 23:25 Temp 98.5 99.6 98.5 99.6 Pulse 99 99 77 Resp 20 20 B/P (MAP) 133/78 (96) 133/78 121/79 (93) Pulse Ox 98 99 O2 Delivery Room Air Room Air Room Air 01/27/21 01/27/21 01/27/21 01/27/21 03:53 07:00 08:00 08:41 Temp 98.6 98.1 98.6 98.1 Pulse 76 71 71 Resp 20 18 B/P (MAP) 144/86 (105) 125/83 (97) 125/83 Pulse Ox 98 96 O2 Delivery Room Air Room Air Room Air 01/27/21 01/27/21 01/27/21 01/27/21 08:42 08:42 11:00 14:49 Temp 97.8 97.6 97.8 97.6 Pulse 71 71 66 68 Resp 18 18 B/P (MAP) 125/83 125/83 130/89 (103) 126/82 (97) Pulse Ox 100 99 O2 Delivery Room Air Room Air Intake and Output 01/26/21 01/26/21 01/27/21 15:00 23:00 07:00 Intake Total 1500 ml Balance 1500 ml Justifications for Admission Other Justification DHIRAJ WYATT MD Jan 27, 2021 15:40
--- NOTE | 2021-01-27 19:04 | NUR ---
Discharge Note: [facility] Discharge instructions and discharge home medications reviewed with Patient and a copy given. All questions have been answered and understanding verbalized. The following instructions and handouts were given: follow up instructions Discontinued lines and drains: 20 guage left FA, tip intact. patient tolerated well. Patient discharged to home with self care via family.
--- NOTE | 2021-01-29 10:19 | NUR ---
IP: Informed pt of negative COVID test. Pt verbalized understanding.
== END 2021-01-27 18:00 | disposition home or self-care (01) | DRG 302 ==
LOC: ER 19:47 → 6 SOUTH 21:40 → OBSVTOIN 01-26 14:13
PROVIDERS: ADMIT Internal Medicine; ATTEND Internal Medicine
DX: I25.110 Atherosclerotic heart disease of native coronary artery with unstable angina pectoris (principal); I50.23 Acute on chronic systolic (congestive) heart failure; J44.1 Chronic obstructive pulmonary disease with (acute) exacerbation; I11.0 Hypertensive heart disease with heart failure; F17.210 Nicotine dependence, cigarettes, uncomplicated; I25.82 Chronic total occlusion of coronary artery; I25.5 Ischemic cardiomyopathy; I45.10 Unspecified right bundle-branch block; Z20.822 Contact with and (suspected) exposure to COVID-19; Z82.49 Family history of ischemic heart disease and other diseases of the circulatory system; Z95.810 Presence of automatic (implantable) cardiac defibrillator
CPT/HCPCS: 36415; 71045; 80053; 81001; 82553; 83690; 83735; 83880; 84484; 85025; 85379; 87804; 93005; 99285; G0378; G0379; J1650; U0003